=== PATIENT | male | born 1965 | race American Indian/Alaskan Native ===

== ENCOUNTER 2016-12-14 11:48 | Inpatient (IN) | payer OTHER ==
[2016-12-14] VITALS (10 sets, daily range): BP systolic 112–141; BP diastolic 56–80; PULSE 123–154; RESP 14–26; TEMP 98.5; O2SAT 91–97
[~2016-12-14] VITALS: Ht 190.5 cm; Wt 184.2 kg
--- NOTE | 2016-12-14 12:29 | PD ---
HPI Chief Complaint: Edema Time Seen by Provider: 12:22 Travel History International Travel<30 days: No Contact w/Intl Traveler<30days: No Traveled to known affect area: No History of Present Illness HPI Patient is a 51-year-old male presenting to him or to come for evaluation of right lower leg swelling and redness. Patient states she's been driving for the last 2 days from [place], since that time he's had increasing pain, redness and swelling in the right lower extremity. He reports his pain is a 7 out of 10 , the pain is increased with ambulation, improved with rest. Although the pain improves of redness and swelling has not resolved with rest. Patient states he gets short of breath with exertion and has had a fast heart rate, he stated that his primary told him his heart rate would not slow down until he lost weight. Patient reports a history of type 2 diabetes, hypertension and is on a baby aspirin daily. He denies any chest pain, headache, nausea, diaphoresis, abdominal pain at this time. [facility] Past Medical History Cardiovascular Problems: Yes (tachycardia) Diabetes: Yes Hypertension: Yes Medical other: Yes (morbid obesity) Past Surgical History Surgical History: No Previous Surgery Family History Family History: Negative Social History Alcohol Use: No Tobacco Use: No Substance Use: No Allergies-Medications (Allergen,Severity, Reaction): Coded Allergies: No Known Allergies (Unverified , 12/14/16) Review of Systems Except as stated in HPI: all other systems reviewed are Neg General / Constitutional: No: Fever, Chills HENT: No: Headaches, Lightheadedness Cardiovascular: Positive: Tachycardia, Dyspnea on exertion, No: Chest Pain or Discomfort Respiratory: No: Cough, Wheezing Gastrointestinal: No: Nausea, Vomiting, Diarrhea, Abdominal Pain Musculoskeletal: Positive: Myalgias, Edema, Pain Skin: Positive Change in Pigmentation Neurologic: No: Dizziness, Syncope, Focal Abnormalities Physical Exam Narrative GENERAL: Morbidly obese, well-developed, alert male. SKIN: Warm and dry. Chronic changes to bilateral lower extremities. Right lower extremity with 2+ pitting edema and erythema noted. Unable to palpate pedal pulses. HEAD: Atraumatic. Normocephalic. EYES: Pupils equal and round. No scleral icterus. No injection or drainage. ENT: No nasal bleeding or discharge. Mucous membranes pink and moist. NECK: Trachea midline. No JVD. CARDIOVASCULAR: Tachycardic. No murmur appreciated. RESPIRATORY: No accessory muscle use. Clear to auscultation. Breath sounds equal bilaterally. GASTROINTESTINAL: Abdomen obese, soft, non-tender, nondistended. Hepatic and splenic margins not palpable. Positive bowel sounds, no rebound, no guarding. Musculoskeletal: 2+ pitting edema to right lower extremity with erythema and tenderness on palpation. Unable to palpate pedal pulses. NEUROLOGICAL: Awake and alert. No obvious cranial nerve deficits. Motor grossly within normal limits. Normal speech. PSYCHIATRIC: Appropriate mood and affect; insight and judgment normal. Data Data Last Documented VS Vital Signs Date Time Temp Pulse Resp B/P Pulse Ox O2 Delivery O2 Flow Rate FiO2 12/14/16 11:50 98.5 153 14 130/80 91 Room Air Orders Us Leg Venous Doppler (12/14/16 ) Prothrombin Time / Inr (Pt) (12/14/16 12:20) Act Partial Throm Time (Ptt) (12/14/16 12:20) Complete Blood Count With Diff (12/14/16 12:20) Comprehensive Metabolic Panel (12/14/16 12:20) Electrocardiogram (12/14/16 ) Labs Laboratory Tests Test 12/14/16 13:30 White Blood Count 16.0 TH/MM3 Red Blood Count 4.23 MIL/MM3 Hemoglobin 11.0 GM/DL Hematocrit 34.7 % Mean Corpuscular Volume 82.1 FL Mean Corpuscular Hemoglobin 26.0 PG Mean Corpuscular Hemoglobin 31.7 % Concent Red Cell Distribution Width 16.9 % Platelet Count 236 TH/MM3 Mean Platelet Volume 8.0 FL Neutrophils (%) (Auto) 83.8 % Lymphocytes (%) (Auto) 6.4 % Monocytes (%) (Auto) 9.3 % Eosinophils (%) (Auto) 0.2 % Basophils (%) (Auto) 0.3 % Neutrophils # (Auto) 13.4 TH/MM3 Lymphocytes # (Auto) 1.0 TH/MM3 Monocytes # (Auto) 1.5 TH/MM3 Eosinophils # (Auto) 0.0 TH/MM3 Basophils # (Auto) 0.0 TH/MM3 CBC Comment DIFF FINAL Differential Comment Prothrombin Time 12.2 SEC Prothromb Time International 1.1 RATIO Ratio Activated Partial 30.4 SEC Thromboplast Time Sodium Level 142 MEQ/L Potassium Level 4.1 MEQ/L Chloride Level 106 MEQ/L Carbon Dioxide Level 31.8 MEQ/L Anion Gap 4 MEQ/L Blood Urea Nitrogen 15 MG/DL Creatinine 1.34 MG/DL Estimat Glomerular Filtration 56 ML/MIN Rate Random Glucose 91 MG/DL Calcium Level 9.2 MG/DL Total Bilirubin 1.0 MG/DL Aspartate Amino Transf 17 U/L (AST/SGOT) Alanine Aminotransferase 29 U/L (ALT/SGPT) Alkaline Phosphatase 67 U/L Total Protein 7.8 GM/DL Albumin 3.1 GM/DL MDM Medical Decision Making Medical Screen Exam Complete: Yes Emergency Medical Condition: Yes Interpretation(s) Last Impressions Lower Extremity Ultrasound 12/14/16 0000 Signed Impressions: Service Date/Time: Wednesday, December 14, 2016 12:18 - CONCLUSION: 1. Diffuse soft tissue swelling. 2. Unable to compress the mid and distal portions of the superficial femoral vein due to regional soft tissue swelling and discomfort. No echogenic clot and normal Doppler flow identified, however. No sonographic or Doppler findings of deep venous thrombosis. Tony Roach MD Vital Signs Date Time Temp Pulse Resp B/P Pulse Ox O2 Delivery O2 Flow Rate FiO2 12/14/16 11:50 98.5 153 14 130/80 91 Room Air Differential Diagnosis DVT versus pulmonary emboli versus cardiac arrhythmia versus electrolyte abnormality versus deconditioning versus other Narrative Course Patient's 51-year-old male presenting to emergency department for evaluation of right lower extremity pain and swelling that started after a long car drive from [place]. Patient also reports shortness of breath with exertion, patient is morbidly obese with the medical past medical history to include type 2 diabetes, hypertension. He is on a baby aspirin daily. Patient is tachycardic on exam, ultrasound of lower extremity ordered and currently in progress. Labs ordered and pending. CT angiogram may be of benefit due to tachycardia. Care of patient will be transferred to provider in a medical bed when bed is available. Liliya Gonzalez Dec 14, 2016 12:29
--- NOTE | 2016-12-14 13:01 | RADRPT ---
EXAM DATE/TIME: 12/14/2016 12:18 [facility] COMPARISON: No previous studies available for comparison. INDICATIONS : Right leg edema. MEDICAL HISTORY : Diabetes. Right leg edema. SURGICAL HISTORY : None. ENCOUNTER: Initial ACUITY: 3 days PAIN SCORE: 4/10 LOCATION: Right leg. TECHNIQUE: Venous ultrasound of the leg was performed from the inguinal ligament to the proximal calf. Real-juan carlos e, color Doppler and spectral tracing, compression and augmentation techniques were used. FINDINGS: Due to swelling and regional discomfort, unable to fully compress the mid and distal portions of the superficial femoral vein. However, no echogenic clot is seen in the lumen of the common femoral, fem oral, popliteal, and posterior tibial veins. There is a normal response of the venous system to prox imal and distal augmentation and respiration. CONCLUSION: 1. Diffuse soft tissue swelling. 2. Unable to compress the mid and distal portions of the superficial femoral vein due to regional sof t tissue swelling and discomfort. No echogenic clot and normal Doppler flow identified, however. No s onographic or Doppler findings of deep venous thrombosis. Tony Roach MD on December 14, 2016 at 12:55 Board Certified Radiologist. This report was verified electronically.
[2016-12-14 13:47] LABS: AUTOMATED NEUTROPHIL # 13.4 TH/MM3 (1.8-7.7); BASOPHIL % 0.3 % (0.0-2.0); EOSINOPHIL % 0.2 % (0.0-4.0); HEMATOCRIT 34.7 % (39.0-51.0); HEMO FLAGS DIFF FINAL; LYMPH % 6.4 % (9.0-44.0); MEAN CELL VOLUME 82.1 FL (80.0-100.0); MEAN CORPUSCULAR HGB CONC 31.7 % (32.0-36.0); MONO % 9.3 % (0.0-8.0); NEUT % 83.8 % (16.0-70.0); PLATELET COUNT 236 TH/MM3 (150-450); RED BLOOD COUNT 4.23 MIL/MM3 (4.50-5.90); RED CELL DISTRIBUTION WIDTH 16.9 % (11.6-17.2)
[2016-12-14 13:55] LABS: APTT (PATIENT) 30.4 SEC (24.3-30.1); INTERNATIONAL NORMALIZED RATIO 1.1 RATIO; PROTHROMBIN TIME - PATIENT 12.2 SEC (9.8-11.6)
[2016-12-14 14:03] LABS: ALT (GPT) 29 U/L (12-78); ANION GAP 4 MEQ/L (5-15); AST (GOT) 17 U/L (15-37); BICARBONATE 31.8 MEQ/L (21.0-32.0); BLOOD UREA NITROGEN 15 MG/DL (7-18); CHLORIDE 106 MEQ/L (98-107); GLOMERULAR FILTRATION RATE 56 ML/MIN (>89); POTASSIUM 4.1 MEQ/L (3.5-5.1); SODIUM (NA) 142 MEQ/L (136-145)
[2016-12-14 14:06] LABS: ALKALINE PHOSPHATASE 67 U/L (45-117)
[2016-12-14] MEDS ORDERED: DILTIAZEM HCL 25 MG/5 ML VIAL ONE (14:47)
[2016-12-14] MEDS ORDERED: ASPI81CH CHEW (14:52)
[2016-12-14] MEDS ORDERED: SODIUM CHLORIDE 0.9% FLUSH 5 ML FLUSH IVF PRN (15:00)
[2016-12-14] MEDS ORDERED: DILTIAZEM HCL 25 MG/5 ML VIAL IV PUSH ONE (15:00)
--- NOTE | 2016-12-14 15:05 | PD ---
Physical Exam Date Seen by Provider: Dec 14, 2016 Narrative Patient presents with chief complaint of redness and swelling of his right lower extremity. Data Data Last Documented VS Vital Signs Date Time Temp Pulse Resp B/P Pulse Ox O2 Delivery O2 Flow Rate FiO2 12/14/16 15:00 123 20 112/59 96 Nasal Cannula 3 12/14/16 11:50 98.5 Orders Us Leg Venous Doppler (12/14/16 ) Prothrombin Time / Inr (Pt) (12/14/16 12:20) Act Partial Throm Time (Ptt) (12/14/16 12:20) Complete Blood Count With Diff (12/14/16 12:20) Comprehensive Metabolic Panel (12/14/16 12:20) Electrocardiogram (12/14/16 ) Diltiazem Inj (Cardizem Inj) (12/14/16 14:47) Ecg Monitoring (12/14/16 14:48) Blood Pressure (12/14/16 14:48) Iv Access Insert/Monitor (12/14/16 14:48) Oximetry (12/14/16 14:48) Vital Signs (12/14/16 14:48) Diltiazem Inj (Cardizem Inj) (12/14/16 15:00) Sodium Chloride 0.9% Flush (Ns Flush) (12/14/16 15:00) Ct Pulmonary Angiogram (12/14/16 14:49) Lactic Acid Sepsis Protocol (12/14/16 15:11) Blood Culture (12/14/16 15:11) Piperacil-Tazo 4.5 Gm Premix (Zosyn 4.5 (12/14/16 15:11) Sodium Chlor 0.9% 1000 Ml Inj (Ns 1000 M (12/14/16 15:11) Sodium Chlor 0.9% 1000 Ml Inj (Ns 1000 M (12/14/16 15:11) Sodium Chlor 0.9% 1000 Ml Inj (Ns 1000 M (12/14/16 15:11) Sodium Chlor 0.9% 1000 Ml Inj (Ns 1000 M (12/14/16 15:11) Iohexol 350 Inj (Omnipaque 350 Inj) (12/14/16 15:45) Place In Observation (12/14/16 ) Code Status (12/14/16 16:18) Vital Signs (Adult) Q4H (12/14/16 16:18) Activity Oob With Assistance (12/14/16 16:18) Diet 1800 Ada Cons Carb (12/14/16 Dinner) Sodium Chloride 0.9% Flush (Ns Flush) (12/14/16 16:30) Sodium Chloride 0.9% Flush (Ns Flush) (12/14/16 21:00) Acetaminophen (Tylenol) (12/14/16 16:30) Ondansetron Inj (Zofran Inj) (12/14/16 16:30) Bisacodyl Supp (Dulcolax Supp) (12/14/16 16:30) Magnesium Hydroxide Liq (Milk Of Magnesi (12/14/16 16:30) Chest, Single Ap (12/14/16 16:18) Pt Request For Service (12/14/16 16:18) Enoxaparin Inj (Lovenox Inj) (12/14/16 16:30) Naloxone Inj (Narcan Inj) (12/14/16 16:30) Aspirin Chew (Aspirin Chew) (12/15/16 09:00) Cholecalciferol (Vitamin D3) (12/15/16 09:00) Levothyroxine (Synthroid) (12/15/16 09:00) Metformin (Glucophage) (12/14/16 21:00) Metformin (Glucophage) (12/15/16 12:00) Bedside Glucose FORTUNATO.AC&HS (12/14/16 16:29) ^ Blood Glucose Goal (Criteria (12/14/16 16:29) ^ Hypoglycemia 51 - 69 Mg/Dl (12/14/16 16:29) ^ Hypoglycemia 50 Mg/Dl Or < (12/14/16 16:29) Insulin Aspart Supplemtl Scale (Novolog (12/14/16 21:00) Labs Laboratory Tests Test 12/14/16 12/14/16 13:30 15:35 White Blood Count 16.0 TH/MM3 Red Blood Count 4.23 MIL/MM3 Hemoglobin 11.0 GM/DL Hematocrit 34.7 % Mean Corpuscular Volume 82.1 FL Mean Corpuscular Hemoglobin 26.0 PG Mean Corpuscular Hemoglobin 31.7 % Concent Red Cell Distribution Width 16.9 % Platelet Count 236 TH/MM3 Mean Platelet Volume 8.0 FL Neutrophils (%) (Auto) 83.8 % Lymphocytes (%) (Auto) 6.4 % Monocytes (%) (Auto) 9.3 % Eosinophils (%) (Auto) 0.2 % Basophils (%) (Auto) 0.3 % Neutrophils # (Auto) 13.4 TH/MM3 Lymphocytes # (Auto) 1.0 TH/MM3 Monocytes # (Auto) 1.5 TH/MM3 Eosinophils # (Auto) 0.0 TH/MM3 Basophils # (Auto) 0.0 TH/MM3 CBC Comment DIFF FINAL Differential Comment Prothrombin Time 12.2 SEC Prothromb Time International 1.1 RATIO Ratio Activated Partial 30.4 SEC Thromboplast Time Sodium Level 142 MEQ/L Potassium Level 4.1 MEQ/L Chloride Level 106 MEQ/L Carbon Dioxide Level 31.8 MEQ/L Anion Gap 4 MEQ/L Blood Urea Nitrogen 15 MG/DL Creatinine 1.34 MG/DL Estimat Glomerular Filtration 56 ML/MIN Rate Random Glucose 91 MG/DL Calcium Level 9.2 MG/DL Total Bilirubin 1.0 MG/DL Aspartate Amino Transf 17 U/L (AST/SGOT) Alanine Aminotransferase 29 U/L (ALT/SGPT) Alkaline Phosphatase 67 U/L Total Protein 7.8 GM/DL Albumin 3.1 GM/DL Lactic Acid Level 1.1 mmol/L MDM Supervised Visit with MARGARETH: Yes Interpretation(s) EKG shows a narrow complex tachycardia with a ventricular rate of 152. It is a very regular rhythm. I have no old EKGs for comparison. Differential Diagnosis Differential diagnosis of tachycardia includes but is not limited to PSVT, atrial fibrillation with a rapid ventricular response, sinus tachycardia (due to hypovolemia, anemia, thyrotoxicosis), PE Narrative Course Patient presented from triage with tachycardia. He also has a red, hot, swollen right lower extremity. He has bilateral lower extremity edema. He states that his shortness of breath is at baseline. He states that he's been homeless for a couple weeks and has been staying in a truck or in a motel. He states that he has been taking his medications. His rhythm has slowed some. It appears that he is in sinus tachycardia. CBC & BMP Diagram 12/14/16 13:30 Ultrasound is negative for DVT. Clinically, he has cellulitis. I have ordered Zosyn and IV fluids. He will need to be admitted. I will call the admitting doctor after I see his CT for PE. CT: 1. No pulmonary embolus is identified. 2. 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 3. There are some small subcarinal and pretracheal nodes. There is a node in the pretracheal goldie chain measuring 2.5 x 1.[address] scan in 6 months to ensure stability would be warranted. Critical Care Narrative Aggregate critical care time was 45 minutes. Time to perform other separately billable procedures was not included in the critical care time. My time did not include minutes spent treating any other patients simultaneously or on activities that did not directly contribute to the patient's treatment. The services I provided to this patient were to treat and/or prevent clinically significant deterioration due to cardiac dysrhythmia, PE I provided critical care services requiring my management, as noted below: Chart data review, documentation time, medication orders and management, vital sign assessments/reviewing monitor data, ordering and reviewing lab tests, ordering and interpreting/reviewing x-rays and diagnostic studies, care of the patient and discussion of the patient with the admitting physicians Sepsis Criteria SIRS Criteria (2 or more): Heart rate over 90, WBC > 62045, < 4000 or > 10% bands Sepsis Criteria (SIRS+source): Infect source susp/known Diagnosis Primary Impression: Sinus tachycardia Additional Impression: Cellulitis of right leg Admitting Information Admitting Physician Requests: Admit Condition: Stable Verenice Del Rio MD Dec 14, 2016 15:05
[2016-12-14] MEDS ORDERED: PIPERACIL-TAZO 4.5 GM PREMIX 100 ML IV STA (15:11)
[2016-12-14] MEDS ORDERED: SODIUM CHLOR 0.9% 1000 ML INJ 900 ML IV ONE (15:11)
[2016-12-14] MEDS ORDERED: SODIUM CHLOR 0.9% 1000 ML INJ 1,000 ML IV ONE ×3 (15:11)
[2016-12-14] MEDS ORDERED: LEVO75TA3 PO (15:44)
[2016-12-14] MEDS ORDERED: VITA100018 PO (15:44)
[2016-12-14] MEDS ORDERED: FURO1TAB60 PO ×2 (15:44)
[2016-12-14] MEDS ORDERED: ALDA50TA2 PO (15:44)
[2016-12-14] MEDS ORDERED: K-TA10TA PO (15:44)
[2016-12-14] MEDS ORDERED: GLIM4TAB PO (15:44)
[2016-12-14] MEDS ORDERED: ENAL20TA81 PO (15:44)
[2016-12-14] MEDS ORDERED: METF500 PO ×2 (15:44)
[2016-12-14] MEDS ORDERED: IOHEXOL 350 MG/ML 10 ML VIAL (for RAD DIAG) IV ONE (15:45)
[2016-12-14] MEDS ORDERED: NOVO7030P2 SQ (15:45)
--- NOTE | 2016-12-14 16:05 | RADRPT ---
EXAM DATE/TIME: 12/14/2016 15:43 [facility] COMPARISON: No previous studies available for comparison. INDICATIONS : Possible DVT. Chest pain. Eval for PE. IV CONTRAST: 60 cc Omnipaque 350 (iohexol) IV RADIATION DOSE: 25.75 CTDIvol (mGy) MEDICAL HISTORY : Cardiovascular disease. Hypertension. Diabetes mellitus type 2. SURGICAL HISTORY : None. ENCOUNTER: Initial ACUITY: 2 days PAIN SCALE: 5/10 LOCATION: chest TECHNIQUE: Volumetric scanning of the chest was performed using a pulmonary embolism protocol MIP images were re constructed. Using automated exposure control and adjustment of the mA and/or kV according to patien t size, radiation dose was kept as low as reasonably achievable to obtain optimal diagnostic quality images. FINDINGS: PULMONARY ARTERIES: No filling defects are seen in the pulmonary arteries through the segmental level. LUNGS: No pneumothorax is identified. There is patchy, groundglass change seen within both lower lobes. This is nonspecific in appearance. This could suggest an extrinsic allergic alveolitis. PLEURAE: There is no pleural thickening or pleural effusion. MEDIASTINUM: There is good visualization of the great vessels of the middle mediastinum. There are some small node s in the pretracheal goldie chain and the subcarinal goldie chain. The largest node identified is in th e subcarinal nodes measures approximately 2.5 x 1.3 CM.. These are nonspecific in appearance. Followu p CT in 6 months to ensure they do not enlarge would be warranted. There is mild atherosclerotic plaq uing in the coronary arteries. MUSCULOSKELETAL: Within normal limits for patient age. MISCELLANEOUS: The visualized upper abdominal organs demonstrate no acute abnormality. CONCLUSION: 1. No pulmonary embolus is identified. 2. 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 3. There are some small subcarinal and pretracheal nodes. There is a node in the pretracheal goldie ch ain measuring 2.5 x 1.[address] scan in 6 months to ensure stability would be warranted. Marin Appiah MD on December 14, 2016 at 15:58 Board Certified Radiologist. This report was verified electronically.
[2016-12-14] MEDS ORDERED: ONDANSETRON HCL 4 MG/2 ML VIAL IVP PRN (16:30)
[2016-12-14] MEDS ORDERED: BISACODYL 10 MG SUPP PR PRN (16:30)
[2016-12-14] MEDS ORDERED: ACETAMINOPHEN 325 MG TAB PO PRN (16:30)
[2016-12-14] MEDS ORDERED: SODIUM CHLORIDE 0.9% FLUSH 5 ML FLUSH FLUSH PRN (16:30)
[2016-12-14] MEDS ORDERED: NALOXONE HCL 0.4 MG/ML AMP IV PRN (16:30)
[2016-12-14] MEDS ORDERED: MAGNESIUM HYDROXIDE SUSP 30 ML CUP PO PRN (16:30)
--- NOTE | 2016-12-14 16:31 | HHI.HP ---
HPI Service [facility] Hospitalists Primary Care Physician Rakesh Rey MD (Vipin) Admission Diagnosis Cellulitis Chief Complaint: RLE cellulitis Travel History International Travel<30 Days: No Contact w/Intl Traveler <30 Da: No Traveled to Known Affected Are: No History of Present Illness Mr. Matthews is a pleasant 51 y/o WM with poorly controlled diabetes, HTN, hx of atrial flutter, chronic LE edema, diastolic dysfunction, hypothyroidism and morbid obesity. Pt presented to the ED at [facility] on 12/14/16 with complaints of worsening pain, erythema, swelling and subjective fevers x 2-3 days. He states that he has chronic LE edema and takes Lasix 80mg in AM and 40mg in PM and Aldactone chronically. More recently he has noted increased redness in the RLE and this has worsened over the last 2-3 days. He has been having subjective fevers and chills. He has had increased pain in the RLE and difficulty with ambulating. Pt was given a dose of IV Zosyn in the ER. He has also been given 4L of NS. He denies any current chest pain or SOB. Pt was noted to be tachycardic at the time of admission and his EKG was interpreted as atrial flutter with RVR. He has an outpt EKG from 2016 which also indicated A. flutter with RVR. Pt states that he has had issues with periodically elevated HR since last year. He was given a Cardizem bolus in the ED. Currently his HR is still in the 150's but appears to be regular on telemetry. He is not on any BB as an outpt. Pt does take Enalapril and Norvasc. Pt is also has IDDM with his last Hgb A1C being 9.7%. He states that he is compliant with all his medications. Pt is morbidly obese and smokes 3/4 ppd x 30 years. Review of Systems Constitutional: DENIES: Fever, Chills Eyes: DENIES: Vision loss Ears, nose, mouth, throat: DENIES: Hearing loss Respiratory: DENIES: Shortness of breath Cardiovascular: COMPLAINS OF: Lower Extremity Edema, DENIES: Chest pain, Palpitations Genitourinary: DENIES: Dysuria Musculoskeletal: COMPLAINS OF: Joint pain Integumentary: COMPLAINS OF: Abnormal pigmentation, Rash Neurologic: DENIES: Headache Past Family Social History Past Medical History Atrial flutter/tachycardia Poorly controlled diabetes mellitus, Hgb A1C 9.7% HTN Hyperlipidemia Hypothyroidism Tobacco use Morbid obesity Diastolic dysfunction 2D echo (11/19/14) - Moderate concentric LV hypertrophy - Estimated EF 55% - Diastolic dysfunction Past Surgical History No previous surgeries Reported Medications Novolin 70-30 Inj (Insulin Human Isoph/Insulin Regular) 1,000 Unit/10 Ml Vial 85 Units SQ BID Glimepiride 4 Mg Tab 8 Mg PO DAILY Take with breakfast or first main meal Levothyroxine (Levothyroxine Sodium) 75 Mcg Tab 75 Mcg PO DAILY Vitamin D3 (Cholecalciferol) 1,000 Unit Tab 1,000 Units PO DAILY K-Tab (Potassium Chloride) 10 Meq Tab 10 Meq PO DAILY Lasix (Furosemide) 40 Mg Tab 40 Mg PO DAILY IN THE PM Lasix (Furosemide) 40 Mg Tab 80 Mg PO DAILY IN THE AM Glucophage (Metformin HCl) 500 Mg Tab 500 Mg PO DAILY AT 12NOON With a meal Glucophage (Metformin HCl) 500 Mg Tab 1,000 Mg PO BID With meals Vasotec (Enalapril Maleate) 20 Mg Tab 20 Mg PO BID Aldactone (Spironolactone) 50 Mg Tab 50 Mg PO DAILY Aspirin 81 Mg Chew 81 Mg CHEW DAILY Allergies: Coded Allergies: No Known Allergies (Unverified , 12/14/16) Family History Noncontributory Social History (+)Tobacco use, 3/4ppd x 30+ years Rare alcohol use Occasional marijuana use, 2-3 times per week Physical Exam Vital Signs Vital Signs Date Time Temp Pulse Resp B/P Pulse Ox O2 Delivery O2 Flow Rate FiO2 12/14/16 15:00 123 20 112/59 96 Nasal Cannula 3 12/14/16 14:40 152 24 95 Nasal Cannula 3 12/14/16 14:40 152 24 112/56 95 Nasal Cannula 3 12/14/16 11:50 98.5 153 14 130/80 91 Room Air Physical Exam GENERAL: This is a well-nourished, well-developed patient, in no apparent distress. HEENT: Atraumatic. Normocephalic. No temporal or scalp tenderness. No scleral icterus. Airway patent. NECK: Trachea midline, supple, nontender. CARDIO: Regular. RESP: CTA bilaterally. No wheezes, rales, or rhonchi. ABD: +BS, soft, non-tender, nondistended. EXT: Bilateral 2+ pitting edema to the LE. RLE with erythema and tenderness on palpation. NEURO: Awake and alert. Motor and sensory grossly within normal limits. Normal speech. Laboratory Laboratory Tests Test 12/14/16 12/14/16 13:30 15:35 White Blood Count 16.0 Red Blood Count 4.23 Hemoglobin 11.0 Hematocrit 34.7 Mean Corpuscular Volume 82.1 Mean Corpuscular Hemoglobin 26.0 Mean Corpuscular Hemoglobin 31.7 Concent Red Cell Distribution Width 16.9 Platelet Count 236 Mean Platelet Volume 8.0 Neutrophils (%) (Auto) 83.8 Lymphocytes (%) (Auto) 6.4 Monocytes (%) (Auto) 9.3 Eosinophils (%) (Auto) 0.2 Basophils (%) (Auto) 0.3 Neutrophils # (Auto) 13.4 Lymphocytes # (Auto) 1.0 Monocytes # (Auto) 1.5 Eosinophils # (Auto) 0.0 Basophils # (Auto) 0.0 CBC Comment DIFF FINAL Differential Comment Prothrombin Time 12.2 Prothromb Time International 1.1 Ratio Activated Partial 30.4 Thromboplast Time Sodium Level 142 Potassium Level 4.1 Chloride Level 106 Carbon Dioxide Level 31.8 Anion Gap 4 Blood Urea Nitrogen 15 Creatinine 1.34 Estimat Glomerular Filtration 56 Rate Random Glucose 91 Calcium Level 9.2 Total Bilirubin 1.0 Aspartate Amino Transf 17 (AST/SGOT) Alanine Aminotransferase 29 (ALT/SGPT) Alkaline Phosphatase 67 Total Protein 7.8 Albumin 3.1 Lactic Acid Level 1.1 Date/Time Procedure Status Source Growth 12/14/16 15:35 Aerobic Blood Culture Received Blood Peripheral Pending 12/14/16 15:35 Anaerobic Blood Culture Received Blood Peripheral Pending Result Diagram: 12/14/16 1330 12/14/[address] Angiography 12/14/16 1449 Signed Impressions: Service Date/Time: Wednesday, December 14, 2016 15:43 - CONCLUSION: 1. No pulmonary embolus is identified. 2. 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 3. There are some small subcarinal and pretracheal nodes. There is a node in the pretracheal goldie chain measuring 2.5 x 1.[address] scan in 6 months to ensure stability would be warranted. Marin Appiah MD Lower Extremity Ultrasound 12/14/16 0000 Signed Impressions: Service Date/Time: Wednesday, December 14, 2016 12:18 - CONCLUSION: 1. Diffuse soft tissue swelling. 2. Unable to compress the mid and distal portions of the superficial femoral vein due to regional soft tissue swelling and discomfort. No echogenic clot and normal Doppler flow identified, however. No sonographic or Doppler findings of deep venous thrombosis. Tony Roach MD Septic Shock Reassessment Heart: Other Lungs: Clear Skin: Warm Assessment and Plan Problem List: (1) Cellulitis of right leg Status: Acute Plan: - Pt with several days of worsening RLE edema, erythema, pain and subjective fevers/chills. - Pt admitted under SIRS sepsis criteria with tachycardia, leukocytosis (16,000) - Pt was given a dose of IV Zosyn in the ER and 4L of IVF - Pt has reportedly been homeless for a couple of weeks and has been staying in a car or staying at [facility] (12/14) --> Diffuse soft tissue swelling. Unable to compress the mid and distal portions of the superficial femoral vein due to regional soft tissue swelling and discomfort. No echogenic clot and normal Doppler flow identified, however. No sonographic or Doppler findings of deep venous thrombosis. - CTA (12/14) --> No pulmonary embolus is identified. Patchy areas of ground- glass infiltrate throughout predominantly the lower lobes most suggestive of an extrinsic allergic alveolitis. There are some small subcarinal and pretracheal nodes. There is a node in the pretracheal goldie chain measuring 2.5 x 1.[address] scan in 6 months to ensure stability would be warranted. - Cont. IV Zosyn - Pt notably tachycardic, may be physiological related to infection and pain, but pt with noted hx of atrial flutter per outpt EKG and EKG at admission also appears to be possible atrial flutter with RVR. Telemetry currently appears to be sinus tachycardia. - Pt has been given a bolus of IV Cardizem and pt to be started on a Cardizem gtt. - Consult Cardiology - He has significant LE edema and was given 4L of NS in the ER and has a hx of diastolic dysfunction. - We will given Lasix 40mg IV BID, and potassium. Monitor labs closely - ASA - Lovenox - Supportive care (2) Tachyarrhythmia Status: Acute Plan: - See above. (3) Diabetes Status: Chronic Plan: - Poorly controlled - Hgb A1C 9.7% in 11/2016 - Metformin 1000mg BID and 500mg at noon - NovoLog SSI - Hold Amaryl - Accu checks (4) HTN (hypertension) Status: Chronic Plan: - Pt normally takes Enalapril 20mg po BID and Norvasc 10mg po daily. - Hold home BP meds - Pt being started on Cardizem gtt and Lasix IV - Monitor BP closely (5) Diastolic dysfunction Status: Chronic Plan: - Last 2D echo in 2014 noted diastolic dysfunction - See above. (6) Chronic edema Status: Chronic Plan: - See above. (7) Hypothyroidism Status: Chronic Plan: - Cont. home meds (8) Tobacco abuse Status: Chronic Plan: - Discussed tobacco cessation - Offered the pt a Nicotine patch which he declined for now. (9) Morbid obesity Status: Acute Assessment and Plan Patient examined. Assessment and plan formulated with Michelle Martinez PA-C. I agree with the above. Problem Qualifiers (1) Diabetes: Michelle Martinez Dec 14, 2016 16:31 Juan Davidson DO Dec 15, 2016 11:53
[2016-12-14] MEDS ORDERED: DEXTROSE 50% IN WATER 50 ML VIAL(D50) IV PUSH PRN (16:45)
[2016-12-14] MEDS ORDERED: GLUCAGON 1 MG/ML VIAL OTHER PRN (16:45)
[2016-12-14] MEDS ORDERED: ENOXAPARIN SODIUM 30 MG/0.3 ML SYRINGE SQ SCH (17:00)
[2016-12-14] MEDS ORDERED: AMLO10 PO (17:08)
[2016-12-14] MEDS ORDERED: POTASSIUM CHLORIDE 10 MEQ CAP PO ONE (17:15)
[2016-12-14] MEDS ORDERED: ACETAMINOPHEN/HYDROcodone 325 MG/7.5 MG TAB PO ONE (17:15)
--- NOTE | 2016-12-14 17:21 | RADRPT ---
EXAM DATE/TIME: 12/14/2016 16:58 [facility] COMPARISON: CT PULMONARY ANGIOGRAM, December 14, 2016, 15:43. INDICATIONS : Cough MEDICAL HISTORY : Diabetes mellitus type II. SURGICAL HISTORY : None. ENCOUNTER: Initial ACUITY: 1 day PAIN SCORE: 0/10 LOCATION: Bilateral chest FINDINGS: A single view of the chest demonstrates the lungs to be symmetrically aerated without evidence of a m ass or definite infiltrate. The heart size is at the upper limits of normal. There is hazy opacity in both lung bases. There are multiple overlying cardiac leads. Osseous structures are intact. CONCLUSION: Hazy opacity in both lung bases. Azeem Cuba MD on December 14, 2016 at 17:18 Board Certified Radiologist. This report was verified electronically.
[2016-12-14] MEDS: FUROSEMIDE 40 MG/4 ML VIAL IV PUSH SCH (17:59)
[2016-12-14] MEDS: DILTIAZEM INJ 125 MG in SODIUM CHLORIDE 0.9% INJ 100 ML IV SCH ×3 (19:24→21:11)
[2016-12-14] MEDS: INSULIN ASPART SUPPLEMENTAL SCALE SQ SCH (21:09)
[2016-12-14] MEDS ORDERED: METOPROLOL TARTRATE 100 MG TAB PO SCH (22:00)
[2016-12-14] MEDS: SODIUM CHLORIDE 0.9% FLUSH 5 ML FLUSH FLUSH SCH (22:25)
[2016-12-14] MEDS: metFORMIN HCL 500 MG TAB PO SCH (22:25)
[2016-12-14] MEDS: ENOXAPARIN SODIUM 100 MG/ML SYRINGE SQ SCH (22:26)
[2016-12-15] VITALS (10 sets, daily range): BP systolic 18–141; BP diastolic 58–81; PULSE 105–145; RESP 19–27; TEMP 98.1–98.4; O2SAT 90–95
[2016-12-15] MEDS: LEVOTHYROXINE SODIUM 75 MCG TAB PO SCH (06:46)
[2016-12-15] MEDS: INSULIN ASPART SUPPLEMENTAL SCALE SQ SCH ×4 (07:28→21:00)
--- NOTE | 2016-12-15 07:48 | MB ---
cc: SHELIA POLLARD MD DATE OF CONSULTATION 12/15/2016 REASON FOR CONSULTATION This is a 51-year-old gentleman who presents to the emergency department with right lower leg swelling and tenderness noted that this began approximately three days ago but yesterday became quite erythematous and tender to the touch. He noted that it was also very warm to the touch. He has been driving from the last two days from [place] with increasing discomfort. No fever or chills have been present, although he thinks he may have had a fever last night, but did not take it. He has had no prior history of leg edema or swelling. In the emergency department, he was seen. A CTA was performed which was unremarkable. He had a lowers extremity ultrasound that showed no evidence for DVT. We have been asked to see him in that he has a rapid heart rate and examination of his EKG a rhythm strip shows atrial flutter with a heart rate of 145-150. PAST MEDICAL HISTORY His past medical history is significant for: 1. Diabetes 2. He has noted on two separate occasions over the past year he was told that his heart rate was fast. He did see Cardiology approximately one year ago, but was told there were no significant problems present. Several months ago, he was also suggested into the emergency department because a rapid heart rate, but declined and went home and has not sought follow up. He otherwise has no history of chest Pain and denies any shortness of breath, lightheadedness, dizziness or palpitations. 3. He has had borderline hypertension. SOCIAL HISTORY The patient works in [employer]. He does not smoke, drink or use recreational drugs. MEDICATIONS AT HOME Has included: 1. Metformin 500 mg three times daily 2. Enalapril 20 mg twice a day 3. Aldactone 50 mg daily 4. Aspirin 81 mg daily 5. Furosemide 80 mg of the morning of 40 in the evening. 6. Potassium 10 mEq daily 7. Levothyroxine 75 mcg daily 8. Glimepiride 8 mg daily 9. Novolin 70/30 with 85 units subcu twice a day PHYSICAL EXAM On physical exam, he is awake and alert. VITAL SIGNS: Heart rate is 145. Blood pressure is 125/80. NECK: There is no neck vein distension. LUNGS: His lungs are essentially clear. CARDIOVASCULAR: Exam reveals a regular rate and rhythm. There is no significant murmur present. No gallop is noted. ABDOMEN: Soft without tenderness. EXTREMITIES: Reveal no edema. ASSESSMENT/PLAN The patient has atrial flutter with rapid response. It is unclear how long this has been present and we will review his outpatient records at [facility] to evaluate his episode two months ago. In the meantime, we will try to slow his rate medically with Metoprolol 100 mg daily and I have increased his Lovenox to 100 mg twice daily for thromboembolic protection. MD JEFFREY Talbot/EDVAN /6:59 AM /7:39 AM
[2016-12-15 07:49] LABS: AUTOMATED NEUTROPHIL # 13.3 TH/MM3 (1.8-7.7); BASOPHIL % 0.2 % (0.0-2.0); EOSINOPHIL % 0.1 % (0.0-4.0); HEMATOCRIT 32.2 % (39.0-51.0); HEMO FLAGS DIFF FINAL; LYMPH % 6.6 % (9.0-44.0); MEAN CORPUSCULAR HEMOGLOBIN 25.7 PG (27.0-34.0); MONO % 7.3 % (0.0-8.0); NEUT % 85.8 % (16.0-70.0); PLATELET COUNT 226 TH/MM3 (150-450); RED BLOOD COUNT 3.87 MIL/MM3 (4.50-5.90); RED CELL DISTRIBUTION WIDTH 16.8 % (11.6-17.2); WHITE BLOOD COUNT 15.6 TH/MM3 (4.0-11.0)
[2016-12-15 08:10] LABS: POTASSIUM 4.2 MEQ/L (3.5-5.1)
[2016-12-15] MEDS ORDERED: POTASSIUM CHLORIDE 20 MEQ CONTROLLED RELEASE TAB PO SCH (09:00)
[2016-12-15] MEDS ORDERED: METOPROLOL TARTRATE 100 MG TAB PO SCH (09:00)
[2016-12-15] MEDS: SODIUM CHLORIDE 0.9% FLUSH 5 ML FLUSH FLUSH SCH ×2 (09:01→21:00)
[2016-12-15] MEDS: ASPIRIN 81 MG CHEW TAB CHEW SCH (09:01)
[2016-12-15] MEDS: ENOXAPARIN SODIUM 100 MG/ML SYRINGE SQ SCH (09:01)
[2016-12-15] MEDS: metFORMIN HCL 500 MG TAB PO SCH ×3 (09:47→22:07)
[2016-12-15] MEDS: CHOLECALCIFEROL (VIT D3) 1000 UNIT TAB PO SCH (09:47)
--- NOTE | 2016-12-15 10:26 | EKG ---
Date Performed: 12/14/2016 Time Performed: 14:43:55 PTAGE: 51 years EKG: ATRIAL FLUTTER WITH 2:[address] & T-WAVE ABNORMALITY ABNORMAL ECG NO PREVIOUS TRACING DOCTOR: Sebastien Rincon Interpretating Date/Time 12/15/2016 10:25:46
--- NOTE | 2016-12-15 12:16 | HHI.PR ---
Subjective Remarks No new complaints. Objective Vitals Vital Signs Date Time Temp Pulse Resp B/P Pulse Ox O2 Delivery O2 Flow Rate FiO2 12/15/16 09:00 145 27 139/64 90 Nasal Cannula 3 12/15/16 08:35 98.1 144 24 132/65 94 Nasal Cannula 3 12/15/16 08:35 98.1 144 24 132/65 94 Nasal Cannula 3 12/15/16 08:35 Nasal Cannula 3 12/15/16 05:00 131 22 135/68 93 Nasal Cannula 2 12/15/16 01:00 132 25 125/63 94 Nasal Cannula 2 12/14/16 23:00 148 26 118/58 94 Nasal Cannula 2 12/14/16 20:50 21 12/14/16 20:38 154 22 115/57 97 Nasal Cannula 2 12/14/16 20:00 152 22 134/67 Nasal Cannula 2 12/14/16 19:15 150 21 141/70 96 Nasal Cannula 2 12/14/16 18:00 143 18 141/70 96 Nasal Cannula 3 12/14/16 17:00 135 18 137/62 97 Nasal Cannula 3 12/14/16 16:00 142 18 123/56 97 Nasal Cannula 3 12/14/16 15:00 123 20 112/59 96 Nasal Cannula 3 12/14/16 14:40 152 24 95 Nasal Cannula 3 12/14/16 14:40 152 24 112/56 95 Nasal Cannula 3 Result Diagram: 12/15/16 0713 12/15/[address] Angiography 12/14/16 1449 Signed Impressions: Service Date/Time: Wednesday, December 14, 2016 15:43 - CONCLUSION: 1. No pulmonary embolus is identified. 2. 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 3. There are some small subcarinal and pretracheal nodes. There is a node in the pretracheal goldie chain measuring 2.5 x 1.[address] scan in 6 months to ensure stability would be warranted. Marin Appiah MD Lower Extremity Ultrasound 12/14/16 0000 Signed Impressions: Service Date/Time: Wednesday, December 14, 2016 12:18 - CONCLUSION: 1. Diffuse soft tissue swelling. 2. Unable to compress the mid and distal portions of the superficial femoral vein due to regional soft tissue swelling and discomfort. No echogenic clot and normal Doppler flow identified, however. No sonographic or Doppler findings of deep venous thrombosis. Tony Roach MD Objective Remarks GENERAL: This is a well-nourished, well-developed patient, in no apparent distress. CARDIOVASCULAR: Regular rate and rhythm without murmurs, gallops, or rubs. RESPIRATORY: Clear to auscultation. Breath sounds equal bilaterally. No wheezes , rales, or rhonchi. GASTROINTESTINAL: Abdomen soft, non-tender, nondistended. Normal active bowel sounds MUSCULOSKELETAL: Extremities without clubbing, cyanosis, or edema. NEURO: Alert & Oriented x4 to person, place, time, situation. Moves all ext x4 A/P Problem List: (1) Cellulitis of right leg Status: Acute Plan: - Pt with several days of worsening RLE edema, erythema, pain and subjective fevers/chills. - Pt admitted under SIRS sepsis criteria with tachycardia, leukocytosis (16,000) - Pt was given a dose of IV Zosyn in the ER and 4L of IVF - Pt has reportedly been homeless for a couple of weeks and has been staying in a car or staying at [facility] (12/14) --> Diffuse soft tissue swelling. Unable to compress the mid and distal portions of the superficial femoral vein due to regional soft tissue swelling and discomfort. No echogenic clot and normal Doppler flow identified, however. No sonographic or Doppler findings of deep venous thrombosis. - CTA (12/14) --> No pulmonary embolus is identified. Patchy areas of ground- glass infiltrate throughout predominantly the lower lobes most suggestive of an extrinsic allergic alveolitis. There are some small subcarinal and pretracheal nodes. There is a node in the pretracheal goldie chain measuring 2.5 x 1.[address] scan in 6 months to ensure stability would be warranted. - Cont. IV Zosyn - IV lasix, KCL - lovenox --> change to eliquis - significant LE edema - resume lasix 40mg IV BID, observe creatinine (2) Atrial flutter with rapid ventricular response Status: Acute Plan: - comgmt with Cardiology - Case d/w Dr. Goff (12/15/16) - IV Cardizem drip - increase metoprolol to 100mg TID - if NO improvement by 12/16, then will consider amiodarone (3) Alveolitis, allergic (extrinsic) Status: Acute Plan: - CTA chest (12/13/16) 1. No pulmonary embolus is identified. 2. 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 3. There are some small subcarinal and pretracheal nodes. There is a node in the pretracheal goldie chain measuring 2.5 x 1.[address] scan in 6 months to ensure stability would be warranted - requiring 3L NC - Pt works at [employer] - consult Pulmonary Medicine (4) Diabetes Status: Chronic Plan: - currently stable - Poorly controlled - Hgb A1C 9.7% in 11/2016 - Metformin 1000mg BID and 500mg at noon - NovoLog SSI - Hold Amaryl - Accu checks (5) HTN (hypertension) Status: Chronic Plan: - Pt normally takes Enalapril 20mg po BID and Norvasc 10mg po daily. - Hold home BP meds - Pt being started on Cardizem gtt and Lasix IV - Monitor BP closely (6) Diastolic dysfunction Status: Chronic Plan: - Last 2D echo in 2014 noted diastolic dysfunction - See above. (7) Chronic edema Status: Chronic Plan: - See above. (8) Hypothyroidism Status: Chronic Plan: - Cont. home meds (9) Tobacco abuse Status: Chronic Plan: - Discussed tobacco cessation - Offered the pt a Nicotine patch which he declined for now. (10) Morbid obesity Status: Acute Plan: - after discharge, pt will need to work on weight loss - recommend f/u with CP analysis consultant after discharge (11) TRE (obstructive sleep apnea) Status: Acute Plan: - strongly suspect that pt has undiagnosed TRE based on history of wake time somnolence and body habitus - pt will need outpt sleep study for TRE after discharge Problem Qualifiers (1) Diabetes: Qualified Code: E11.8 - Type 2 diabetes mellitus with complication, with long- term current use of insulin (2) Morbid obesity: Qualified Code: E66.01 - Morbid obesity due to excess calories Juan Davidson DO Dec 15, 2016 12:16
[2016-12-15] MEDS ORDERED: AMIODARONE INJ 900 MG in D5W 500 ML (EXCEL BAG) 482 ML IV SCH (13:15)
[2016-12-15] MEDS: AMIODARONE INJ 450 MG in DEXTROSE 5% IN WATE(EXCEL) INJ 241 ML IV SCH ×4 (14:40→23:19)
[2016-12-15] MEDS: METOPROLOL TARTRATE 100 MG TAB PO SCH ×2 (14:40→22:11)
--- NOTE | 2016-12-15 16:49 | EC ---
Study Study Date:12/15/2016 STUDY CONCLUSIONS SUMMARY - Procedure narrative: Image quality was poor. The study was technically limited due to body habitus. - Left ventricle: The cavity size was mildly dilated. Systolic function was severely reduced. The estimated ejection fraction was in the range of 30% to 35%. Diffuse hypokinesis. Impressions: Patient noted to be in atrial fibrillation/flutter with an elevated heart rate during the exam If LV function is below 40, please consider prescribing an ACEI or ARB or document rationale for non-use. PROCEDURE DATA STUDY STATUS: Elective. Procedure: Transthoracic echocardiography. Image quality was poor. The study was technically limited due to body habitus. Scanning was performed from the parasternal and apical acoustic windows. Study completion: The patient tolerated the procedure well. Transthoracic echocardiography. M-mode, complete 2D, complete spectral Doppler, and color Doppler. Patient status: Inpatient. CARDIAC ANATOMY LEFT VENTRICLE: The cavity size was mildly dilated. Systolic function was severely reduced. The estimated ejection fraction was in the range of 30% to 35%. Diffuse hypokinesis. Images were inadequate for LV wall motion assessment. AORTIC VALVE: The valve appears to be grossly normal. Doppler: There was no stenosis. No significant regurgitation. MITRAL VALVE: The valve appears to be grossly normal. Doppler: There was no evidence for stenosis. Trace regurgitation. Peak gradient: 6mm Hg (D). LEFT ATRIUM: The atrium was normal in size. PULMONIC VALVE: Not well visualized. Doppler: There was no evidence for stenosis. No significant regurgitation. TRICUSPID VALVE: The valve appears to be grossly normal. Doppler: There was no evidence for stenosis. Trace to mild regurgitation. BASIC MEASUREMENTS ADULT Normal Left ventricle LV internal dimension, ED, chordal level, *63 mm 43-52 PLAX LV internal dimension, ES, chordal level, *55.8 mm 23-38 PLAX Fractional shortening, chordal level, PLAX *11 % >29 LV posterior wall thickness, ED 10.1 mm IVS/LVPW ratio, ED 1.17 <1.3 Ventricular septum Septal thickness, ED 11.8 mm Left atrium Anterior-posterior dimension 35 mm Right ventricle RV internal dimension, ED, PLAX 23 mm 19-38 DOPPLER MEASUREMENTS ADULT Normal Main pulmonary artery Pressure, S 30 mm Hg =30 Mitral valve Peak E-wave velocity 119 cm/s Peak gradient, D 6 mm Hg Tricuspid valve Regurgitant peak velocity 221 cm/s Peak RV-RA gradient, S 20 mm Hg Maximal regurgitant velocity 221 cm/s Systemic veins Estimated CVP 10 mm Hg Right ventricle RV pressure, S *30 mm Hg <30 LEGEND: Mean values are shown as u=mean value. Asterisk (*) hilario values outside specified normal range. Prepared and signed by Arnulfo Cobian [id number]
[2016-12-15] MEDS: FUROSEMIDE 40 MG/4 ML VIAL IV PUSH SCH (17:58)
[2016-12-15 19:00] LABS: BLOOD GAS BASE EXCESS 1.6 mmol/L (-2-2); BLOOD GAS CARBOXYHEMOGLOBIN 2.6 % (0-4); BLOOD GAS HCO3 27 mmol/L (22-26); BLOOD GAS METHEMOGLOBIN 1.8 % (0-2); BLOOD GAS O2 HGB SATURATION 88 % (90-100); BLOOD GAS OXYGEN CONTENT 13.4 Vol % (12.0-20.0); BLOOD GAS PCO2 51 mmHg (38-42); BLOOD GAS PO2 68 mmHG (61-120); BLOOD GAS TOTAL HGB 10.7 G/DL (12.0-16.0); TEMP CORR TO 98.6
[2016-12-15 19:01] LABS: CRITICAL VALUE YES; DRAW SITE LT RADIAL; LITER FLOW 4 L/M; NUMBER OF ARTERIAL PUNCTURES 1; OXYGEN DEVICE NASAL CANNULA; ULNAR PULSE PRESENT
[2016-12-15 19:02] LABS: STAT NO
[2016-12-15] MEDS: APIXABAN 5 MG TABLET PO SCH (22:06)
[2016-12-15] MEDS: ACETAMINOPHEN/HYDROcodone 325 MG/7.5 MG TAB PO PRN (22:13)
[2016-12-16] VITALS (24 sets, daily range): BP systolic 98–156; BP diastolic 62–84; PULSE 88–138; RESP 18–24; TEMP 99.2; O2SAT 5–97
--- NOTE | 2016-12-16 03:58 | RADRPT ---
EXAM DATE/TIME: 12/16/2016 03:04 [facility] COMPARISON: CHEST SINGLE AP, December 14, 2016, 16:58. INDICATIONS : Shortness of breath, possible pulmonary disease. MEDICAL HISTORY : Diabetes mellitus type II. SURGICAL HISTORY : None. ENCOUNTER: Subsequent ACUITY: 2 days PAIN SCORE: 0/10 LOCATION: Bilateral chest FINDINGS: The cardiac silhouette is enlarged in transverse diameter. There is prominence of the central pulmona ry vasculature with indistinct vascular margins compatible with vascular congestion but no evidence o f overt failure. The findings are improved when compared with the prior exam. No pleural effusions ar e identified. CONCLUSION: 1. Cardiomegaly and findings of vascular congestion without overt failure. The findings are improved when compared with the prior exam. Garrett Pickard MD on December 16, 2016 at 3:56 Board Certified Radiologist. This report was verified electronically.
[2016-12-16] MEDS: ACETAMINOPHEN/HYDROcodone 325 MG/7.5 MG TAB PO PRN (05:32)
[2016-12-16] MEDS: LEVOTHYROXINE SODIUM 75 MCG TAB PO SCH (06:00)
[2016-12-16] MEDS: METOPROLOL TARTRATE 100 MG TAB PO SCH ×3 (06:00→21:20)
[2016-12-16] MEDS: INSULIN ASPART SUPPLEMENTAL SCALE SQ SCH ×4 (07:00→21:00)
--- NOTE | 2016-12-16 08:02 | PD.CARD.PN ---
Subjective Subjective Remarks feels about the same. HR starting to respond to amio and metoprolol but 138 when talking to him. Objective Vital Signs / I&O Vital Signs Date Time Temp Pulse Resp B/P Pulse Ox O2 Delivery O2 Flow Rate FiO2 12/16/16 07:09 24 12/16/16 04:58 138 20 109/71 94 Nasal Cannula 5 12/16/16 04:33 130 24 116/63 95 Nasal Cannula 5 12/16/16 03:52 94 Nasal Cannula 5.00 12/16/16 02:50 121 24 138/80 93 Nasal Cannula 5 12/16/16 01:37 123 24 132/79 95 Nasal Cannula 5 12/16/16 00:15 121 24 111/70 94 Nasal Cannula 5 12/15/16 23:20 105 24 96/59 94 Nasal Cannula 5 12/15/16 22:17 108/58 12/15/16 22:15 142 24 108/58 95 Nasal Cannula 5 12/15/16 20:10 141 24 139/81 92 Nasal Cannula 5 12/15/16 16:33 98.4 126 19 123/79 94 Nasal Cannula 3 12/15/16 12:26 98.1 142 23 141/74 95 Nasal Cannula 3 12/15/16 09:00 145 27 139/64 90 Nasal Cannula 3 12/15/16 08:35 98.1 144 24 132/65 94 Nasal Cannula 3 12/15/16 08:35 98.1 144 24 132/65 94 Nasal Cannula 3 12/15/16 08:35 Nasal Cannula 3 I/O 12/15/16 12/15/16 12/15/16 12/16/16 12/16/16 12/16/16 07:00 15:00 23:00 07:00 15:00 23:00 Intake Total 320 ml Output Total 700 ml Balance -380 ml Intake Oral 320 ml Output Urine Total 700 ml # Voids 4 1 Laboratory Laboratory Tests Test 12/15/16 18:47 Blood Gas Puncture Site LT RADIAL Blood Gas Patient Temperature 98.6 Blood Gas HCO3 27 mmol/L Blood Gas Base Excess 1.6 mmol/L Blood Gas Oxygen Saturation 88 % Arterial Blood pH 7.34 Arterial Blood Partial 51 mmHg Pressure CO2 Arterial Blood Partial 68 mmHG Pressure O2 Arterial Blood Oxygen Content 13.4 Vol % Arterial Blood 2.6 % Carboxyhemoglobin Arterial Blood Methemoglobin 1.8 % Blood Gas Hemoglobin 10.7 G/DL Oxygen Delivery Device NASAL CANNULA Blood Gas Liter Flow 4 L/M Assessment and Plan Assessment and Plan Will add digoxin to regimen Garrett Goff MD, FACC Dec 16, 2016 08:02
[2016-12-16] MEDS: ASPIRIN 81 MG CHEW TAB CHEW SCH (08:13)
[2016-12-16] MEDS: FUROSEMIDE 40 MG/4 ML VIAL IV PUSH SCH ×2 (08:14→17:52)
[2016-12-16] MEDS ORDERED: DIGOXIN 0.5 MG/2 ML VIAL IV PUSH ONE ×3 (08:15→12:00)
[2016-12-16] MEDS: SODIUM CHLORIDE 0.9% FLUSH 5 ML FLUSH FLUSH SCH ×2 (08:17→21:00)
[2016-12-16] MEDS: metFORMIN HCL 500 MG TAB PO SCH ×3 (08:17→21:20)
[2016-12-16] MEDS: APIXABAN 5 MG TABLET PO SCH ×2 (08:17→21:20)
[2016-12-16] MEDS: CHOLECALCIFEROL (VIT D3) 1000 UNIT TAB PO SCH (08:17)
--- NOTE | 2016-12-16 09:52 | MB ---
cc: SHIRLEY GUILLAUME DATE OF CONSULTATION: 12/15/2016 REASON FOR CONSULTATION Respiratory distress and pulmonary infiltrates. HISTORY OF PRESENT ILLNESS This is a 51-year-old extremely obese white male with a history of diabetes, hypertension, atrial flutter and diastolic dysfunction. He has been admitted via the emergency room with progressive fatigue, shortness of breath increasing leg edema, orthopnea and occasional fevers over the past several days. The patient also has been having some apneic episodes and apparently does work at the [employer] and was unable to get to work over the past 2 days. He has a cough and was bringing up little whitish-yellow mucus and noticed some increased leg swelling and pain in his legs. He was seen in the emergency room for weakness and was placed on oxygen via nasal cannula, given IV antibiotic and cultures have been ordered of the blood and urine. Upon admission he was also noted to be tachycardic with a heart rate in the 130s and apparently has had a rapid heart beat for quite sometime now. He has been seen by cardiology. The patient is also known hypertensive. He has diabetes mellitus type 2 poorly controlled. He still smokes about half to three-quarter packs per day. PAST MEDICAL HISTORY Includes: 1. Hypertension. 2. Diabetes mellitus. 3. Hypothyroidism. 4. Obesity. 5. Diastolic dysfunction. 6. Atrial flutter. PAST SURGICAL HISTORY Denies significant surgery. ALLERGIES None listed. FAMILY HISTORY Noncontributory. HABITS The patient smokes half to one-pack per day and has done so for 30 years. Occasional marijuana. No alcohol use recently. MEDICATION 1. Glucophage 500 mg in the a.m. and 1000 mg b.i.d. 2. Vasotec 20 mg b.i.d. 3. Aldactone 50 mg a day. 4. Aspirin 81 mg a day. 5. Lasix 40 mg daily b.i.d. 6. K-Tab 10 mEq daily. 7. Glimepiride 4 mg daily. 8. Synthroid 75 mcg a day. FAMILY HISTORY Noncontributory. REVIEW OF SYSTEMS The patient is overweight. He has dizziness, postnasal drip. He has cough and wheezing. He has epigastric distress and nausea. No vomiting. Denies leg or calf muscle pain. He has had joint pains to his extremities. PHYSICAL EXAMINATION GENERAL: This moderately obese middle-aged white male is alert, face is plethoric. VITAL SIGNS: Blood pressure 130/80, pulse is 132, respirations 24, temperature 98.2. HEENT: Head normocephalic. Pupils are reactive. Sclerae were injected. Tongue is moist. Throat is injected. Nasal mucosa edematous. NECK: Supple. No bruits or thyroid enlargement. CHEST: Equal movements with occasional wheezes bilaterally with prolonged expirations and crackles scattered. CARDIAC: Heart sounds with irregular, S1-S2. No murmur. ABDOMEN: Soft, benign. No masses or organomegaly or tenderness. Bowel sounds are active. EXTREMITIES: Edema 2+ with pigmentation of the skin of the lower extremities. Reflexes are 1+. He does move all his extremities and there is no gross motor deficits. Cranial nerves grossly intact. RECTAL: Exam is deferred. IMPRESSION 1. Chronic respiratory failure. 2. Acute exacerbation of chronic bronchitis. 3. Bibasilar pulmonary infiltrates, probable pulmonary edema with atelectasis. 4. Diabetes mellitus. 5. Hypertension. PLAN The patient was placed on 3 liters of oxygen. We will also place him on BiPAP at night due to possibility of obstructive sleep apnea and he will be given BiPAP at 14/6-28% nasal cannula during the day at 3 liters, nebulized DuoNeb solution added four times a day and weight loss was suggested and counseled. The patient will need a pulmonary function study and a sputum for Gram stain and culture. He will also need a sleep study as an outpatient once he is out of the hospital. Thank you Dr. Davidson for this consultation. MD CHESTER Quintero/CHRISTA /12:00 AM /9:34 AM
[2016-12-16 10:32] LABS: BICARBONATE 27.9 MEQ/L (21.0-32.0); POTASSIUM 4.6 MEQ/L (3.5-5.1)
--- NOTE | 2016-12-16 16:06 | HHI.PR ---
Subjective Remarks No new complaints. Objective Vitals Vital Signs Date Time Temp Pulse Resp B/P Pulse Ox O2 Delivery O2 Flow Rate FiO2 12/16/16 11:51 88 Nasal Cannula 4.00 12/16/16 10:00 106 12/16/16 09:33 103 12/16/16 09:07 104 18 131/84 95 Nasal Cannula 5 12/16/16 08:48 101 12/16/16 08:29 97 Nasal Cannula 5.00 12/16/16 08:12 108 18 156/63 95 Nasal Cannula 5 12/16/16 07:09 24 12/16/16 04:58 138 20 109/71 94 Nasal Cannula 5 12/16/16 04:33 130 24 116/63 95 Nasal Cannula 5 12/16/16 03:52 94 Nasal Cannula 5.00 12/16/16 02:50 121 24 138/80 93 Nasal Cannula 5 12/16/16 01:37 123 24 132/79 95 Nasal Cannula 5 12/16/16 00:15 121 24 111/70 94 Nasal Cannula 5 12/15/16 23:20 105 24 96/59 94 Nasal Cannula 5 12/15/16 22:17 108/58 12/15/16 22:15 142 24 108/58 95 Nasal Cannula 5 12/15/16 20:10 141 24 139/81 92 Nasal Cannula 5 12/15/16 16:33 98.4 126 19 123/79 94 Nasal Cannula 3 12/15/16 12/15/16 12/16/16 15:00 23:00 07:00 Intake Total 320 ml Output Total 700 ml Balance -380 ml Intake Oral 320 ml Output Urine Total 700 ml # Voids 4 1 Result Diagram: 12/15/16 0713 12/16/16 [address] Angiography 12/14/16 1449 Signed Impressions: Service Date/Time: Wednesday, December 14, 2016 15:43 - CONCLUSION: 1. No pulmonary embolus is identified. 2. 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 3. There are some small subcarinal and pretracheal nodes. There is a node in the pretracheal goldie chain measuring 2.5 x 1.[address] scan in 6 months to ensure stability would be warranted. Marin Appiah MD Lower Extremity Ultrasound 12/14/16 0000 Signed Impressions: Service Date/Time: Wednesday, December 14, 2016 12:18 - CONCLUSION: 1. Diffuse soft tissue swelling. 2. Unable to compress the mid and distal portions of the superficial femoral vein due to regional soft tissue swelling and discomfort. No echogenic clot and normal Doppler flow identified, however. No sonographic or Doppler findings of deep venous thrombosis. Tony Roach MD Objective Remarks GENERAL: This is a well-nourished, well-developed patient, in no apparent distress. CARDIOVASCULAR: Regular rate and rhythm without murmurs, gallops, or rubs. RESPIRATORY: Clear to auscultation. Breath sounds equal bilaterally. No wheezes , rales, or rhonchi. GASTROINTESTINAL: Abdomen soft, non-tender, nondistended. Normal active bowel sounds MUSCULOSKELETAL: Extremities without clubbing, cyanosis, or edema. NEURO: Alert & Oriented x4 to person, place, time, situation. Moves all ext x4 A/P Problem List: (1) Cellulitis of right leg Status: Acute Plan: - Pt with several days of worsening RLE edema, erythema, pain and subjective fevers/chills. - Pt admitted under SIRS sepsis criteria with tachycardia, leukocytosis (16,000) - Pt was given a dose of IV Zosyn in the ER and 4L of IVF - Pt has reportedly been homeless for a couple of weeks and has been staying in a car or staying at [facility] (12/14) --> Diffuse soft tissue swelling. Unable to compress the mid and distal portions of the superficial femoral vein due to regional soft tissue swelling and discomfort. No echogenic clot and normal Doppler flow identified, however. No sonographic or Doppler findings of deep venous thrombosis. - CTA (12/14) --> No pulmonary embolus is identified. Patchy areas of ground- glass infiltrate throughout predominantly the lower lobes most suggestive of an extrinsic allergic alveolitis. There are some small subcarinal and pretracheal nodes. There is a node in the pretracheal goldie chain measuring 2.5 x 1.[address] scan in 6 months to ensure stability would be warranted. - Cont. IV Zosyn 12/14, restart 12/16 - IV lasix, KCL - eliquis - significant LE edema - resume lasix 40mg IV BID, observe creatinine (2) Acute renal insufficiency Status: Acute Plan: - worsening RI, since admission - likely d/t IV diuresis vs underlying CKD - case d/w Dr. Reilly, he will consult - continue IV lasix for now - repeat BMP in AM - obtain US Kidneys, ureters, bladder - pt states prior h/o nephrolithiasis (3) Atrial flutter with rapid ventricular response Status: Acute Plan: - comgmt with Cardiology - Case d/w Dr. Goff (12/15/16) - increase metoprolol to 100mg TID - IV amiodarone gtt - digoxin - Telemetry (12/16/16) Aflutter 100-110 (4) Chronic respiratory failure with hypercapnia Status: Acute Plan: - comgmt with Dr. Nicholas, Pulm Medicine - start Bipap at night 14/04 at 28%FiO2 - duonebs - PFTs - sputum studies (5) Alveolitis, allergic (extrinsic) Status: Acute Plan: - CTA chest (12/13/16) 1. No pulmonary embolus is identified. 2. 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 3. There are some small subcarinal and pretracheal nodes. There is a node in the pretracheal goldie chain measuring 2.5 x 1.[address] scan in 6 months to ensure stability would be warranted - requiring 3L NC - Pt works at [employer] facility - consult Pulmonary Medicine (6) Diabetes Status: Chronic Plan: - currently stable - Poorly controlled - Hgb A1C 9.7% in 11/2016 - Metformin 1000mg BID and 500mg at noon - NovoLog SSI - Hold Amaryl - Accu checks (7) HTN (hypertension) Status: Chronic Plan: - Pt normally takes Enalapril 20mg po BID and Norvasc 10mg po daily. - Hold home BP meds - metoprolol (8) Diastolic dysfunction Status: Chronic Plan: - Last 2D echo in 2014 noted diastolic dysfunction - See above. (9) Chronic edema Status: Chronic Plan: - See above. (10) Hypothyroidism Status: Chronic Plan: - Cont. home meds (11) Tobacco abuse Status: Chronic Plan: - Discussed tobacco cessation - Offered the pt a Nicotine patch which he declined for now. (12) Morbid obesity Status: Acute Plan: - after discharge, pt will need to work on weight loss - recommend f/u with [facility] diet consultant after discharge (13) TRE (obstructive sleep apnea) Status: Acute Plan: - strongly suspect that pt has undiagnosed TRE based on history of wake time somnolence and body habitus - pt will need outpt sleep study for TRE after discharge Problem Qualifiers (1) Diabetes: Qualified Code: E11.8 - Type 2 diabetes mellitus with complication, with long- term current use of insulin (2) Morbid obesity: Qualified Code: E66.01 - Morbid obesity due to excess calories Juan Davidson DO Dec 16, 2016 16:06
[2016-12-16] MEDS: PIPERACIL-TAZO 4.5 GM PREMIX 100 ML IV SCH ×2 (17:47→23:00)
--- NOTE | 2016-12-16 18:59 | RADRPT ---
EXAM DATE/TIME: 12/16/2016 16:23 [place] COMPARISON: No previous studies available for comparison. INDICATIONS : Increased lab values. MEDICAL HISTORY : Hypertension. Hypothyroidism. Tachycardia. Diabetes. Morbidy obese. SURGICAL HISTORY : None. ENCOUNTER: Initial ACUITY: 1 day PAIN SCORE: 0/10 LOCATION: Bilateral flank MEASUREMENTS: RIGHT KIDNEY: 12.8 x 6.2 x 6.3 cm LEFT KIDNEY: 11.2 x 5.6 x 5.2 cm FINDINGS: RIGHT KIDNEY: Renal cortex is normal in thickness and echotexture. No hydronephrosis, stone, or mass. LEFT KIDNEY: Renal cortex is normal in thickness and echotexture. No hydronephrosis, stone, or mass. BLADDER: Within normal limits given the degree of distension. CONCLUSION: No acute disease. Rogerio Wayne MD on December 16, 2016 at 18:57 Board Certified Radiologist. This report was verified electronically.
--- NOTE | 2016-12-16 19:49 | PD.CONS ---
HPI Consult Requested By Reason for Consult Acute renal insufficiency. Primary Care Physician Rakesh Rey MD ([place]) History of Present Illness This patient is a 51-year-old male with a history of long-standing diabetes mellitus apparently poorly controlled, hypertension who denies any previous knowledge of renal disease including proteinuria who was admitted after presenting with increasing lower extremity edema, atrial flutter with rapid ventricular rate. Also being treated for cellulitis lower extremity. On presentation creatinine level was 1.31. Current baseline level prior to this admission unknown. Subsequent evaluation is indicated that his ejection fraction which was previously said to be 55% has deteriorated to 30-35%. Patient is currently being diuresed for fluid retention and pulmonary congestion. It is noted that patient had a CTA performed on the of this month. Review of Systems Constitutional: COMPLAINS OF: Fatigue, DENIES: Diaphoretic episodes, Fever, Weight gain, Weight loss, Chills, Dizziness, Change in appetite, Night Sweats Endocrine: DENIES: Heat/cold intolerance, Polydipsia, Polyuria, Polyphagia Cardiovascular: COMPLAINS OF: Dyspnea on Exertion, Lower Extremity Edema, DENIES: Chest pain, Palpitations, Syncope, PND, Orthopnea, Claudication Gastrointestinal: DENIES: Abdominal pain, Black stools, Bloody stools, Constipation, Diarrhea, Nausea, Vomiting, Difficulty Swallowing, Anorexia Musculoskeletal: COMPLAINS OF: Joint pain, DENIES: Muscle aches, Stiffness, Joint Swelling, Back pain, Neck pain Past Family Social History Allergies: Coded Allergies: No Known Allergies (Unverified , 12/14/16) Past Medical History Poorly controlled diabetes mellitus Hypertension Atrial flutter Cardiomyopathy with ejection fraction of 30-35% this admission. Mention of previous diastolic dysfunction. Tobacco use. Past Surgical History Noncontributory to current complaint. Reported Medications Reported Meds & Active Scripts Active Reported Norvasc (Amlodipine Besylate) 10 Mg Tab 10 Mg PO DAILY Novolin 70-30 Inj (Insulin Human Isoph/Insulin Regular) 1,000 Unit/10 Ml Vial 85 Units SQ BID Glimepiride 4 Mg Tab 8 Mg PO DAILY Take with breakfast or first main meal Levothyroxine (Levothyroxine Sodium) 75 Mcg Tab 75 Mcg PO DAILY Vitamin D3 (Cholecalciferol) 1,000 Unit Tab 1,000 Units PO DAILY K-Tab (Potassium Chloride) 10 Meq Tab 10 Meq PO DAILY Lasix (Furosemide) 40 Mg Tab 40 Mg PO DAILY IN THE PM Lasix (Furosemide) 40 Mg Tab 80 Mg PO DAILY IN THE AM Glucophage (Metformin HCl) 500 Mg Tab 500 Mg PO DAILY AT 12NOON With a meal Glucophage (Metformin HCl) 500 Mg Tab 1,000 Mg PO BID With meals Vasotec (Enalapril Maleate) 20 Mg Tab 20 Mg PO BID Aldactone (Spironolactone) 50 Mg Tab 50 Mg PO DAILY Aspirin 81 Mg Chew 81 Mg CHEW DAILY Active Ordered Medications Current Medications Diltiazem HCl (Cardizem Inj) 25 mg STK-MED ONCE .ROUTE ; Start 12/14/16 at 14:47 ; Stop 12/14/16 at 14:48; Status DC Diltiazem HCl (Cardizem Inj) 48 mg BOLUS ONCE IV PUSH Last administered on 14:57; Start 12/14/16 at 15:00; Stop 12/14/16 at 15:01; Status DC IV Flush 2 ml 2 ml UNSCH PRN IVF FLUSH AFTER USING IV ACCESS; Start 12/14/16 at 15:00; Stop 12/14/16 at 16:35; Status DC Piperacillin Sod/ Tazobactam Sod 100 ml @ 200 mls/hr ONCE STAT IV Last administered on 12/14/16 15:36; Start 12/14/16 at 15:11; Stop 12/14/16 at 15:40 ; Status DC Sodium Chloride 1,000 ml @ 1,000 mls/hr Q1H ONCE IV Last administered on 15:36; Start 12/14/16 at 15:11; Stop 12/14/16 at 16:10; Status DC Sodium Chloride 1,000 ml @ 1,000 mls/hr Q1H ONCE IV Last administered on 16:27; Start 12/14/16 at 15:11; Stop 12/14/16 at 16:10; Status DC Sodium Chloride 1,000 ml @ 1,000 mls/hr Q1H ONCE IV Last administered on 16:27; Start 12/14/16 at 15:11; Stop 12/14/16 at 16:10; Status DC Sodium Chloride (NS 1000 ml Inj) 900 ml @ 1,000 mls/hr Q54M ONCE IV Last administered on 12/14/16 16:48; Start 12/14/16 at 15:11; Stop 12/14/16 at 16:04 ; Status DC Iohexol (Omnipaque 350 Inj) 69 ml STK-MED ONCE IV Last administered on 15:45; Start 12/14/16 at 15:45; Stop 12/14/16 at 15:46; Status DC IV Flush (NS Flush) 2 ml UNSCH PRN FLUSH FLUSH AFTER USING IV ACCESS; Start at 16:30 IV Flush (NS Flush) 2 ml BID FLUSH Last administered on 12/15/16 09:01; Start 12/14/16 at 21:00 Acetaminophen (Tylenol) 650 mg Q4H PRN PO TEMP > 100.4; Start 12/14/16 at 16:30 Ondansetron HCl (Zofran Inj) 4 mg Q6H PRN IVP NAUSEA OR VOMITING; Start at 16:30 Bisacodyl (Dulcolax Supp) 10 mg DAILY PRN [place] CONSTIPATION; Start 12/14/16 at 16 :30 Magnesium Hydroxide (Milk Of Magnesia Liq) 30 ml Q12H PRN PO CONSTIPATION; Start 12/14/16 at 16:30 Enoxaparin Sodium (Lovenox Inj) 30 mg Q24H SQ Last administered on 12/14/16 16 :49; Start 12/14/16 at 17:00; Stop 12/14/16 at 22:10; Status DC Naloxone HCl (Narcan Inj) 0.4 mg UNSCH PRN IV SEE LABEL COMMENTS; Start at 16:30 Aspirin (Aspirin Chew) 81 mg DAILY CHEW Last administered on 12/16/16 08:13; Start 12/15/16 at 09:00 Cholecalciferol (Vitamin D3) 1,000 units DAILY PO Last administered on 08:17; Start 12/15/16 at 09:00 Levothyroxine Sodium (Synthroid) 75 mcg DAILY@06 PO Last administered on 06:00; Start 12/15/16 at 06:00 Metformin HCl (Glucophage) 1,000 mg BID PO Last administered on 12/16/16 08:17 ; Start 12/14/16 at 21:00 Metformin HCl (Glucophage) 500 mg DAILY@12 PO Last administered on 12/16/16 13 :21; Start 12/15/16 at 12:00 Insulin Aspart (NovoLOG SUPPLEMENTAL SCALE) 1 ACHS SLIDING SCALE SQ Last administered on 12/16/16 17:48; Start 12/14/16 at 21:00 Dextrose (D50w (Vial) Inj) 25 ml UNSCH PRN IV PUSH HYPOGLYCEMIA - SEE COMMENTS ; Start 12/14/16 at 16:45 Glucagon (Glucagon Inj) 1 mg UNSCH PRN OTHER HYPOGLYCEMIA-SEE COMMENTS; Start 12/14/16 at 16:45 Furosemide (Lasix Inj) 40 mg BID@09,18 IV PUSH Last administered on 12/16/16 17:52; Start 12/14/16 at 18:00 Potassium Chloride (KCl) 10 meq ONCE ONCE PO ; Start 12/14/16 at 17:15; Stop at 17:44; Status DC Acetaminophen/ Hydrocodone Bitart ([place] 7.5-325 Mg) 1 tab Q6H PRN PO pain 2- 10 Last administered on 12/16/16 05:32; Start 12/14/16 at 17:15 Acetaminophen/ Hydrocodone Bitart 1 tab 1 tab ONCE ONCE PO Last administered on 12/14/16 17:59; Start 12/14/16 at 17:15; Stop 12/14/16 at 17:19; Status DC Diltiazem HCl/ Sodium Chloride (Cardizem Inj/NS Inj) 125 ml @ 0 mls/hr TITRATE IV Last administered on 12/14/16 20:39; Start 12/14/16 at 17:30; Stop at 22:06; Status DC Potassium Chloride (KCl) 20 meq DAILY PO ; Start 12/15/16 at 09:00; Stop at 09:00; Status DC Enoxaparin Sodium (Lovenox Inj) 100 mg Q12H SQ Last administered on 12/15/16 09:01; Start 12/14/16 at 22:00; Stop 12/15/16 at 11:53; Status DC Metoprolol Tartrate (Lopressor) 100 mg Q12H PO Last administered on 12/14/16 22:25; Start 12/14/16 at 22:00; Stop 12/15/16 at 06:59; Status DC Metoprolol Tartrate (Lopressor) 100 mg Q12HR PO Last administered on 12/15/16 09:01; Start 12/15/16 at 09:00; Stop 12/15/16 at 11:51; Status DC Metoprolol Tartrate (Lopressor) 100 mg Q8HR PO Last administered on 12/16/16 13:21; Start 12/15/16 at 14:00 Apixaban 5 mg 5 mg BID PO Last administered on 12/16/16 08:17; Start 12/15/16 at 21:00 Amiodarone HCl 900 mg/Dextrose 500 ml @ 0 mls/hr CONTINUOUS IV ; Start 12/15/16 at 13:15; Stop 12/15/16 at 13:20; Status DC Amiodarone HCl/ Dextrose (Cordarone Inj/ D5W ([place]) Inj) 250 ml @ 0 mls/hr CONTINUOUS IV Last administered on 12/15/16 23:19; Start 12/15/16 at 13:30 Digoxin (Lanoxin Inj) 0.5 mg ONCE ONCE IV PUSH Last administered on 12/16/16 08:16; Start 12/16/16 at 08:15; Stop 12/16/16 at 08:16; Status DC Digoxin (Lanoxin Inj) 0.25 mg ONCE ONCE IV PUSH Last administered on 10:00; Start 12/16/16 at 10:00; Stop 12/16/16 at 10:01; Status DC Digoxin 0.25 mg 0.25 mg ONCE ONCE IV PUSH Last administered on 12/16/16 13:22 ; Start 12/16/16 at 12:00; Stop 12/16/16 at 12:01; Status DC Piperacillin Sod/ Tazobactam Sod (Zosyn 4.5 Gm Premix) 100 ml @ 200 mls/hr Q6H IV Last administered on 12/16/16 17:47; Start 12/16/16 at 17:00 Family History As per H&P. Social History Tobacco use. Occasional alcohol use. Physical Exam Vital Signs Vital Signs Date Time Temp Pulse Resp B/P Pulse Ox O2 Delivery O2 Flow Rate FiO2 12/16/16 19:19 92 Nasal Cannula 4.00 12/16/16 16:00 88 12/16/16 15:00 102 12/16/16 14:00 106 12/16/16 13:00 98 12/16/16 12:00 98 12/16/16 11:51 88 Nasal Cannula 4.00 12/16/16 11:00 96 12/16/16 10:00 106 12/16/16 09:33 103 12/16/16 09:07 104 18 131/84 95 Nasal Cannula 5 12/16/16 08:48 101 12/16/16 08:29 97 Nasal Cannula 5.00 12/16/16 08:12 108 18 156/63 95 Nasal Cannula 5 12/16/16 07:09 24 12/16/16 04:58 138 20 109/71 94 Nasal Cannula 5 12/16/16 04:33 130 24 116/63 95 Nasal Cannula 5 12/16/16 03:52 94 Nasal Cannula 5.00 12/16/16 02:50 121 24 138/80 93 Nasal Cannula 5 12/16/16 01:37 123 24 132/79 95 Nasal Cannula 5 12/16/16 00:15 121 24 111/70 94 Nasal Cannula 5 12/15/16 23:20 105 24 96/59 94 Nasal Cannula 5 12/15/16 22:17 108/58 12/15/16 22:15 142 24 108/58 95 Nasal Cannula 5 12/15/16 20:10 141 24 139/81 92 Nasal Cannula 5 Physical Exam GENERAL: Morbidly obese male who appears to have mild dyspnea. SKIN: Warm and dry. HEAD: Normocephalic. EYES: No scleral icterus. No injection or drainage. NECK: Supple, trachea midline. No JVD or lymphadenopathy. CARDIOVASCULAR: Regular rate and rhythm without murmurs, gallops, or rubs. RESPIRATORY: Breath sounds equal bilaterally. No accessory muscle use. GASTROINTESTINAL: Abdomen soft, non-tender, markedly obese abdomen.. MUSCULOSKELETAL: No cyanosis, 3+ pitting edema legs, 1+ pitting edema of the upper extremity and dependent hips. BACK: Nontender without obvious deformity. No CVA tenderness. Laboratory Laboratory Tests Test 12/16/16 09:29 Sodium Level 136 Potassium Level 4.6 Chloride Level 101 Carbon Dioxide Level 27.9 Anion Gap 7 Blood Urea Nitrogen 36 Creatinine 1.70 Estimat Glomerular Filtration 43 Rate Random Glucose 168 Calcium Level 8.8 Date/Time Procedure Status Source Growth 12/14/16 15:35 Aerobic Blood Culture - Preliminary Resulted Blood Peripheral NO GROWTH IN 2 DAYS 12/14/16 15:35 Anaerobic Blood Culture - Preliminary Resulted Blood Peripheral NO GROWTH IN 2 DAYS Result Diagram: 12/15/16 0713 12/16/16 0929 Imaging Last 48 hours Impressions Chest X-Ray 12/16/16 0600 Signed Impressions: Service Date/Time: Friday, December 16, 2016 03:04 - CONCLUSION: 1. Cardiomegaly and findings of vascular congestion without overt failure. The findings are improved when compared with the prior exam. Garrett Pickard MD Renal Ultrasound 12/16/16 0000 Signed Impressions: Service Date/Time: Friday, December 16, 2016 16:23 - CONCLUSION: No acute disease. Rogerio Wayne MD Assessment and Plan Problem List: (1) Acute renal insufficiency Plan: I suspect the patient has acute on chronic renal insufficiency. Acute component may be related to contrast nephrotoxicity as well as a possible component of cardiorenal syndrome. Chronic kidney disease is suspected secondary to duration of diabetes mellitus, poor control previously. Apparently was hospitalized at [facility] few months ago so attempt to obtain records to determine the status of his renal function at that time. Laboratory studies as ordered. Continue diuresis for the present. Contrast nephrotoxicity has to run its course and the creatinine should hopefully peak and then subsequently improve. Medications should be adjusted for the patient's estimated GFR if clinically indicated. Avoid agents with significant potential for nephrotoxicity possible including NSAIDs for analgesia, iodine contrast agents. Gadolinium is contraindicated if the GFR is below 30. (2) Congestive heart failure Plan: Continue diuresis for the present with monitoring of volume status. Diuretics may have to be increased. (3) Cardiomyopathy Plan: Deterioration in ejection fraction as noted above. (4) Chronic respiratory failure with hypercapnia (5) HTN (hypertension) (6) Morbid obesity (7) Diabetes Plan: If the patient's renal indices continue to deteriorate I would recommend discontinuance of metformin for the present as there is a potential development of lactic acidosis in the setting of severe renal insufficiency with metformin which is potentially a serious comorbidity Problem Qualifiers (1) Morbid obesity: Qualified Code: E66.01 - Morbid obesity due to excess calories (2) Diabetes: Qualified Code: E11.8 - Type 2 diabetes mellitus with complication, with long- term current use of insulin Delia Reilly MD Dec 16, 2016 19:49
[2016-12-17] VITALS (26 sets, daily range): BP systolic 105–141; BP diastolic 62–79; PULSE 52–140; RESP 14–24; TEMP 97.9–98.7; O2SAT 91–95
[2016-12-17] MEDS: PIPERACIL-TAZO 4.5 GM PREMIX 100 ML IV SCH ×4 (05:00→22:45)
[2016-12-17] MEDS: METOPROLOL TARTRATE 100 MG TAB PO SCH ×3 (05:39→22:45)
[2016-12-17] MEDS: LEVOTHYROXINE SODIUM 75 MCG TAB PO SCH (05:39)
[2016-12-17 06:25] LABS: AUTOMATED NEUTROPHIL # 8.9 TH/MM3 (1.8-7.7); BASOPHIL % 0.3 % (0.0-2.0); EOSINOPHIL # 0.2 TH/MM3 (0-0.4); EOSINOPHIL % 1.5 % (0.0-4.0); HEMATOCRIT 31.7 % (39.0-51.0); HEMO FLAGS DIFF FINAL; LYMPH % 9.9 % (9.0-44.0); LYMPHOCYTE # 1.1 TH/MM3 (1.0-4.8); MEAN CELL VOLUME 81.4 FL (80.0-100.0); MEAN CORPUSCULAR HEMOGLOBIN 25.8 PG (27.0-34.0); MEAN CORPUSCULAR HGB CONC 31.7 % (32.0-36.0); MONO % 8.4 % (0.0-8.0); NEUT % 79.9 % (16.0-70.0); PLATELET COUNT 266 TH/MM3 (150-450); RED CELL DISTRIBUTION WIDTH 16.4 % (11.6-17.2); WHITE BLOOD COUNT 11.2 TH/MM3 (4.0-11.0)
[2016-12-17 06:37] LABS: ANION GAP 9 MEQ/L (5-15); BICARBONATE 27.4 MEQ/L (21.0-32.0); BLOOD UREA NITROGEN 36 MG/DL (7-18); CHLORIDE 101 MEQ/L (98-107); GLOMERULAR FILTRATION RATE 49 ML/MIN (>89); SODIUM (NA) 137 MEQ/L (136-145); TRANSFERRIN IRON PROFILE 209 MG/DL (200-360)
[2016-12-17] MEDS: INSULIN ASPART SUPPLEMENTAL SCALE SQ SCH ×4 (06:48→21:00)
--- NOTE | 2016-12-17 07:51 | PD.CARD.PN ---
Subjective Subjective Remarks no CV complaints Objective Vital Signs / I&O Vital Signs Date Time Temp Pulse Resp B/P Pulse Ox O2 Delivery O2 Flow Rate FiO2 12/17/16 06:00 118 12/17/16 05:00 110 12/17/16 04:00 102 12/17/16 04:00 98.0 88 21 118/74 93 12/17/16 03:00 112 12/17/16 02:00 108 12/17/16 01:00 100 12/17/16 00:00 86 12/17/16 00:00 98.0 107 21 120/74 91 12/16/16 23:00 92 12/16/16 22:00 88 12/16/16 21:00 112 12/16/16 20:00 92 12/16/16 20:00 99.2 104 20 98/62 92 12/16/16 20:00 104 12/16/16 19:19 92 Nasal Cannula 4.00 12/16/16 16:00 88 12/16/16 15:00 102 12/16/16 14:00 106 12/16/16 13:00 98 12/16/16 12:00 98 12/16/16 11:51 88 Nasal Cannula 4.00 12/16/16 11:00 96 12/16/16 10:00 106 12/16/16 09:33 103 12/16/16 09:07 104 18 131/84 95 Nasal Cannula 5 12/16/16 08:48 101 12/16/16 08:29 97 Nasal Cannula 5.00 12/16/16 08:12 108 18 156/63 95 Nasal Cannula 5 Physical Exam GENERAL: Well-nourished, well-developed patient in no apparent distress. NECK: No JVD. No carotid bruit. CARDIOVASCULAR: IR IR. S1/S2 no murmur, rub, or gallop. RESPIRATORY: No accessory muscle use. Clear to auscultation. Breath sounds equal bilaterally. GASTROINTESTINAL: Abdomen soft, non-tender, nondistended. MUSCULOSKELETAL: Extremities without clubbing, cyanosis, or edema. Laboratory Laboratory Tests Test 12/16/16 12/17/16 09:29 05:11 Sodium Level 136 MEQ/L 137 MEQ/L Potassium Level 4.6 MEQ/L 4.0 MEQ/L Chloride Level 101 MEQ/L 101 MEQ/L Carbon Dioxide Level 27.9 MEQ/L 27.4 MEQ/L Anion Gap 7 MEQ/L 9 MEQ/L Blood Urea Nitrogen 36 MG/DL 36 MG/DL Creatinine 1.70 MG/DL 1.52 MG/DL Estimat Glomerular Filtration 43 ML/MIN 49 ML/MIN Rate Random Glucose 168 MG/DL 122 MG/DL Calcium Level 8.8 MG/DL 8.7 MG/DL White Blood Count 11.2 TH/MM3 Red Blood Count 3.90 MIL/MM3 Hemoglobin 10.1 GM/DL Hematocrit 31.7 % Mean Corpuscular Volume 81.4 FL Mean Corpuscular Hemoglobin 25.8 PG Mean Corpuscular Hemoglobin 31.7 % Concent Red Cell Distribution Width 16.4 % Platelet Count 266 TH/MM3 Mean Platelet Volume 8.5 FL Neutrophils (%) (Auto) 79.9 % Lymphocytes (%) (Auto) 9.9 % Monocytes (%) (Auto) 8.4 % Eosinophils (%) (Auto) 1.5 % Basophils (%) (Auto) 0.3 % Neutrophils # (Auto) 8.9 TH/MM3 Lymphocytes # (Auto) 1.1 TH/MM3 Monocytes # (Auto) 0.9 TH/MM3 Eosinophils # (Auto) 0.2 TH/MM3 Basophils # (Auto) 0.0 TH/MM3 CBC Comment DIFF FINAL Differential Comment Phosphorus Level 4.2 MG/DL Iron Level 19 MCG/DL Total Iron Binding Capacity 293 MCG/DL Percent Iron Saturation 6.5 % Albumin 2.8 GM/DL Complement C3 153 MG/DL Complement C4 40 MG/DL Assessment and Plan Problem List: (1) Cardiomyopathy (2) HTN (hypertension) (3) Atrial flutter with rapid ventricular response Assessment and Plan AF - heart rate better controlled on digoxin, stop amio gtt and concert to PO. Plan for DCC after 2 to 3 weeks of anticoagulation cardiomyopathy - start lsiniopril 2.5 mg daily. It is likely that his LV dysfunction is related to tachycardia mediates cardiomyopathy Rory Moore Dec 17, 2016 07:51
[2016-12-17] MEDS: CHOLECALCIFEROL (VIT D3) 1000 UNIT TAB PO SCH (08:15)
[2016-12-17] MEDS: metFORMIN HCL 500 MG TAB PO SCH ×3 (08:15→22:45)
[2016-12-17] MEDS: APIXABAN 5 MG TABLET PO SCH ×2 (08:15→22:45)
[2016-12-17] MEDS: FUROSEMIDE 40 MG/4 ML VIAL IV PUSH SCH (08:15)
[2016-12-17] MEDS: SODIUM CHLORIDE 0.9% FLUSH 5 ML FLUSH FLUSH SCH ×2 (08:15→22:46)
[2016-12-17] MEDS: ASPIRIN 81 MG CHEW TAB CHEW SCH (08:15)
[2016-12-17] MEDS: AMIODARONE 200 MG TAB PO SCH (08:17)
[2016-12-17] MEDS: LISINOPRIL 5 MG TAB PO SCH (08:17)
--- NOTE | 2016-12-17 09:36 | HHI.PR ---
Subjective Remarks No new complaints. No chest pain, no palpitations, no worsening SOB Pt is eager for discharge [facility] d/t financial constraints. Objective Vitals Vital Signs Date Time Temp Pulse Resp B/P Pulse Ox O2 Delivery O2 Flow Rate FiO2 12/17/16 08:17 93 21 12/17/16 06:00 118 12/17/16 05:00 110 12/17/16 04:00 102 12/17/16 04:00 98.0 88 21 118/74 93 12/17/16 03:00 112 12/17/16 02:00 108 12/17/16 01:00 100 12/17/16 00:00 86 12/17/16 00:00 98.0 107 21 120/74 91 12/16/16 23:00 92 12/16/16 22:00 88 12/16/16 21:00 112 12/16/16 20:00 92 12/16/16 20:00 99.2 104 20 98/62 92 12/16/16 20:00 104 12/16/16 19:19 92 Nasal Cannula 4.00 12/16/16 16:00 88 12/16/16 15:00 102 12/16/16 14:00 106 12/16/16 13:00 98 12/16/16 12:00 98 12/16/16 11:51 88 Nasal Cannula 4.00 12/16/16 11:00 96 12/16/16 10:00 106 12/16/16 09:33 103 Result Diagram: 12/17/16 0511 12/17/[address] Angiography 12/14/16 1449 Signed Impressions: Service Date/Time: Wednesday, December 14, 2016 15:43 - CONCLUSION: 1. No pulmonary embolus is identified. 2. 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 3. There are some small subcarinal and pretracheal nodes. There is a node in the pretracheal goldie chain measuring 2.5 x [address] scan in 6 months to ensure stability would be warranted. Marin Appiah MD Lower Extremity Ultrasound 12/14/16 0000 Signed Impressions: Service Date/Time: Wednesday, December 14, 2016 12:18 - CONCLUSION: 1. Diffuse soft tissue swelling. 2. Unable to compress the mid and distal portions of the superficial femoral vein due to regional soft tissue swelling and discomfort. No echogenic clot and normal Doppler flow identified, however. No sonographic or Doppler findings of deep venous thrombosis. Tony Roach MD Objective Remarks GENERAL: This is a well-nourished, well-developed patient, in no apparent distress. CARDIOVASCULAR: Regular rate and rhythm without murmurs, gallops, or rubs. RESPIRATORY: Clear to auscultation. Breath sounds equal bilaterally. No wheezes , rales, or rhonchi. GASTROINTESTINAL: Abdomen soft, non-tender, nondistended. Normal active bowel sounds MUSCULOSKELETAL: Extremities without clubbing, cyanosis, or edema. NEURO: Alert & Oriented x4 to person, place, time, situation. Moves all ext x4 A/P Problem List: (1) Cellulitis of right leg Status: Acute Plan: - Pt with several days of worsening RLE edema, erythema, pain and subjective fevers/chills. - Pt admitted under SIRS sepsis criteria with tachycardia, leukocytosis (16,000) - Pt was given a dose of IV Zosyn in the ER and 4L of IVF - Pt has reportedly been homeless for a couple of weeks and has been staying in a car or staying at [facility] (12/14) --> Diffuse soft tissue swelling. Unable to compress the mid and distal portions of the superficial femoral vein due to regional soft tissue swelling and discomfort. No echogenic clot and normal Doppler flow identified, however. No sonographic or Doppler findings of deep venous thrombosis. - CTA (12/14) --> No pulmonary embolus is identified. Patchy areas of ground- glass infiltrate throughout predominantly the lower lobes most suggestive of an extrinsic allergic alveolitis. There are some small subcarinal and pretracheal nodes. There is a node in the pretracheal goldie chain measuring 2.5 x 1.[address] scan in 6 months to ensure stability would be warranted. - Cont. IV Zosyn 12/14, restart 12/16 - IV lasix, KCL - eliquis - significant LE edema - increase lasix to 80mg IV BID, observe creatinine (2) Acute renal insufficiency Status: Acute Plan: - now improving - Cogmt with Nephrology, appreciate input from Dr. Reilly - likely d/t IV diuresis, underlying CKD, and possibly contrast nephropathy with recent CTA (12/14/16) - increase IV lasix to 80mg BID, observe - repeat BMP in AM - US Kidneys, ureters, bladder (12/16/16) --> NO acute findings - pt states prior h/o nephrolithiasis (3) Atrial flutter with rapid ventricular response Status: Acute Plan: - comgmt with Cardiology - Case d/w Dr. Goff (12/15/16) - increase metoprolol to 100mg TID - amiodarone converted to PO (12/17/16) - digoxin - obtain digoxin level in AM - Telemetry (12/17/16): HR 80-90 (4) Chronic respiratory failure with hypercapnia Status: Acute Plan: - comgmt with Dr. Nicholas, Pulm Medicine - start Bipap at night 14/04 at 28%FiO2 - duonebs - PFTs - sputum studies (5) Alveolitis, allergic (extrinsic) Status: Acute Plan: - CTA chest (12/13/16) 1. No pulmonary embolus is identified. 2. 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 3. There are some small subcarinal and pretracheal nodes. There is a node in the pretracheal goldie chain measuring 2.5 x 1.[address] scan in 6 months to ensure stability would be warranted - requiring 3L NC - Pt works at [employer] facility (6) Diabetes Status: Chronic Plan: - currently stable - Poorly controlled - Hgb A1C 9.7% in 11/2016 - Metformin 1000mg BID and 500mg at noon - NovoLog SSI - resume Amaryl at 1mg BID - Accu checks (7) HTN (hypertension) Status: Chronic Plan: - Pt normally takes Enalapril 20mg po BID and Norvasc 10mg po daily. - Hold home BP meds - metoprolol 100mg TID - lisinopril 2.5mg daily (started 12/17/16) (8) Diastolic dysfunction Status: Chronic Plan: - Last 2D echo in 2014 noted diastolic dysfunction - See above. (9) Chronic edema Status: Chronic Plan: - See above. (10) Hypothyroidism Status: Chronic Plan: - Cont. home meds (11) Tobacco abuse Status: Chronic Plan: - Discussed tobacco cessation - Offered the pt a Nicotine patch which he declined for now. (12) Morbid obesity Status: Acute Plan: - after discharge, pt will need to work on weight loss - recommend f/u with [facility] h[facility] after discharge (13) TRE (obstructive sleep apnea) Status: Acute Plan: - strongly suspect that pt has undiagnosed TRE based on history of wake time somnolence and body habitus - pt will need outpt sleep study for TRE after discharge Problem Qualifiers (1) Diabetes: Qualified Code: E11.8 - Type 2 diabetes mellitus with complication, with long- term current use of insulin (2) Morbid obesity: Qualified Code: E66.01 - Morbid obesity due to excess calories Juan Davidson DO Dec 17, 2016 09:36
[2016-12-17] MEDS ORDERED: FUROSEMIDE 40 MG/4 ML VIAL IV PUSH ONE (10:30)
[2016-12-17] MEDS: GLIMEPIRIDE 1 MG TAB PO SCH (10:36)
[2016-12-17] MEDS: FUROSEMIDE 100 MG/10 ML VIAL IV PUSH SCH (17:06)
--- NOTE | 2016-12-17 19:24 | HHI.NPPN ---
Subjective History of Present Illness This patient is a 51-year-old male with a history of long-standing diabetes mellitus apparently poorly controlled, hypertension who denies any previous knowledge of renal disease including proteinuria who was admitted after presenting with increasing lower extremity edema, atrial flutter with rapid ventricular rate. Also being treated for cellulitis lower extremity. On presentation creatinine level was 1.31. Current baseline level prior to this admission unknown. Subsequent evaluation is indicated that his ejection fraction which was previously said to be 55% has deteriorated to 30-35%. Patient is currently being diuresed for fluid retention and pulmonary congestion. It is noted that patient had a CTA performed on the of this month. Interval History Pt feeling OK. Is very anxious to go home. Objective Data Data Vital Signs Date Time Temp Pulse Resp B/P Pulse Ox O2 Delivery O2 Flow Rate FiO2 12/17/16 18:00 102 12/17/16 17:00 104 12/17/16 16:00 91 12/17/16 16:00 98.7 58 24 139/79 93 12/17/16 15:00 90 12/17/16 14:00 74 12/17/16 13:00 126 12/17/16 12:00 98.2 52 24 141/78 95 12/17/16 12:00 106 12/17/16 11:00 92 12/17/16 10:00 92 12/17/16 09:00 92 12/17/16 08:17 93 21 12/17/16 08:00 90 12/17/16 08:00 97.9 52 22 126/62 93 12/17/16 07:00 102 12/17/16 06:00 118 12/17/16 05:00 110 12/17/16 04:00 102 12/17/16 04:00 98.0 88 21 118/74 93 12/17/16 03:00 112 12/17/16 02:00 108 12/17/16 01:00 100 12/17/16 00:00 86 12/17/16 00:00 98.0 107 21 120/74 91 12/16/16 23:00 92 12/16/16 22:00 88 12/16/16 21:00 112 12/16/16 20:00 92 12/16/16 20:00 99.2 104 20 98/62 92 2/15/17 20:00 104 12/16/16 19:19 92 Nasal Cannula 4.00 -: 12/17/16 0511 12/17/16 0511 Medication Review Current Medications Medications (Trade) Dose Ordered Sig/Kennedy Route Start Time Stop Time Status Last Admin (NS Flush) 2 ml UNSCH PRN FLUSH 12/14/16 16:30 (NS Flush) 2 ml BID FLUSH 12/14/16 21:00 12/17/16 08:15 (Tylenol) 650 mg Q4H PRN PO 12/14/16 16:30 (Zofran Inj) 4 mg Q6H PRN IVP 12/14/16 16:30 (Dulcolax Supp) 10 mg DAILY PRN TN 12/14/16 16:30 (Milk Of Magnyvette Liq) 30 ml Q12H PRN PO 12/14/16 16:30 (Narcan Inj) 0.4 mg UNSCH PRN IV 12/14/16 16:30 (Aspirin Chew) 81 mg DAILY CHEW 12/15/16 09:00 12/17/16 08:15 (Vitamin D3) 1,000 units DAILY PO 12/15/16 09:00 12/17/16 08:15 (Synthroid) 75 mcg DAILY@06 PO 12/15/16 06:00 12/17/16 05:39 (Glucophage) 1,000 mg BID PO 12/14/16 21:00 12/17/16 08:15 (Glucophage) 500 mg DAILY@12 PO 12/15/16 12:00 12/17/16 10:54 (D50w (Vial) Inj) 25 ml UNSCH PRN IV PUSH 12/14/16 16:45 (Glucagon Inj) 1 mg UNSCH PRN OTHER 12/14/16 16:45 ([place] 7.5-325 Mg) 1 tab Q6H PRN PO 12/14/16 17:15 12/16/16 05:32 (Lopressor) 100 mg Q8HR PO 12/15/16 14:00 12/17/16 12:59 Apixaban 5 mg 5 mg BID PO 12/15/16 21:00 12/17/16 08:15 (Zosyn 4.5 Gm Premix) 100 ml @ 200 mls/hr Q6H IV 12/16/16 17:00 12/17/16 15:44 (Prinivil) 2.5 mg DAILY PO 12/17/16 09:00 12/17/16 08:17 (Cordarone) 200 mg DAILY PO 12/17/16 09:00 12/17/16 08:17 (Amaryl) 1 mg DAILYAC PO 12/17/16 10:00 12/17/16 10:36 (Lasix Inj) 80 mg BID@09,18 IV PUSH 12/17/16 18:00 12/17/16 17:06 Physical Exam General Appearance: No Acute Distress Eyes Eye Exam: Pupils Equal, Pupils Reactive Ears & Nose Ears & Nose Exam: Tympanic Membranes Normal Throat Throat Exam: Oral Mucosa Whitmore & Moist Neck Neck Exam: Neck Supple, Trachea Midline Pulmonary Resp Exam: Clear Bilaterally, Breath Sounds Equal, Diminished Breath Sounds Cardiology CV Exam: Regular, Normal Sinus Rhythm Gastrointestinal/Abdomen GI Exam: Soft, Non-Tender Integumentary Skin Exam: Warm Extremeties Extremities Exam: Moderate Edema Extremeties Remarks Significant pitting edema present BLE up to thighs. Neurologic Neuro Exam: Alert, Awake Psychiatric Psych Exam: Appropriate Responses Assessment/Plan Problem List: (1) Acute renal insufficiency Plan: I suspect the patient has acute on chronic renal insufficiency. Acute component may be related to contrast nephrotoxicity as well as a possible component of cardiorenal syndrome. Chronic kidney disease is suspected secondary to duration of diabetes mellitus, poor control previously. SCr improving currently. Labs reviewed from [facility] from December and January 2015 for which he was seen in the ED but not admitted for same complaints was 0.7. Noted that HCV was positive. Ordered PCR for confirmation. Pt denies any known hx of hepatitis nor illicit drug use hx. Follow I&Os Check UPCR to see if any significant proteinuria Medications should be adjusted for the patient's estimated GFR if clinically indicated. Avoid agents with significant potential for nephrotoxicity possible including NSAIDs for analgesia, iodine contrast agents. Gadolinium is contraindicated if the GFR is below 30. (2) Congestive heart failure Plan: Lasix was increased by primary today to 80mg BID. Will monitor response. (3) Cardiomyopathy Plan: Deterioration in ejection fraction to 30-35% (4) Chronic respiratory failure with hypercapnia (5) HTN (hypertension) (6) Morbid obesity (7) Diabetes Plan: If the patient's renal indices continue to deteriorate I would recommend discontinuance of metformin for the present as there is a potential development of lactic acidosis in the setting of severe renal insufficiency with metformin which is potentially a serious comorbidity (8) Anemia Plan: Fe stores low. May benefit from Venofer infusion if agreeable by PCP Problem Qualifiers (1) Morbid obesity: Qualified Code: E66.01 - Morbid obesity due to excess calories (2) Diabetes: Qualified Code: E11.8 - Type 2 diabetes mellitus with complication, with long- term current use of insulin Moira Juarez Dec 17, 2016 19:24
--- NOTE | 2016-12-17 19:27 | HHI.PR ---
Subjective Remarks He is better. Still has leg edema. No chest pain.. Used Bipap. Output was good with Lasix IV Objective Vital Signs Date Time Temp Pulse Resp B/P Pulse Ox O2 Delivery O2 Flow Rate FiO2 12/17/16 18:00 102 12/17/16 17:00 104 12/17/16 16:00 91 12/17/16 16:00 98.7 58 24 139/79 93 12/17/16 15:00 90 12/17/16 14:00 74 12/17/16 13:00 126 12/17/16 12:00 98.2 52 24 141/78 95 12/17/16 12:00 106 12/17/16 11:00 92 12/17/16 10:00 92 12/17/16 09:00 92 12/17/16 08:17 93 21 12/17/16 08:00 90 12/17/16 08:00 97.9 52 22 126/62 93 12/17/16 07:00 102 12/17/16 06:00 118 12/17/16 05:00 110 12/17/16 04:00 102 12/17/16 04:00 98.0 88 21 118/74 93 12/17/16 03:00 112 12/17/16 02:00 108 12/17/16 01:00 100 12/17/16 00:00 86 12/17/16 00:00 98.0 107 21 120/74 91 12/16/16 23:00 92 12/16/16 22:00 88 12/16/16 21:00 112 12/16/16 20:00 92 12/16/16 20:00 99.2 104 20 98/62 92 12/16/16 20:00 104 I/O 12/16/16 12/16/16 12/16/16 12/17/16 12/17/16 12/17/16 07:00 15:00 23:00 07:00 15:00 23:00 Intake Total 1079 ml Output Total 400 ml Balance 679 ml Intake Oral 860 ml IV Total 219 ml Output Urine Total 400 ml # Voids 5 # Bowel Movements 1 Result Diagram: 12/17/1651012/17/16510 Objective Remarks GENERAL: This moderately obese middle-aged white male is alert, face is plethoric. HEENT: Head normocephalic. Pupils are reactive. Sclerae were injected. Tongue is moist. Throat is clear.. Nasal mucosa edematous. NECK: Supple. No bruits or thyroid enlargement. CHEST: Equal movements with occasional wheezes bilaterally with prolonged expirations and crackles scattered. CARDIAC: Heart sounds with irregular, S1-S2. No murmur. ABDOMEN: Soft, benign. No masses or organomegaly or tenderness. Bowel sounds are active. EXTREMITIES: Edema 2+ with pigmentation of the skin of the lower extremities. Reflexes are 1+. He does move all his extremities and there is no gross motor deficits. Cranial nerves grossly intact. RECTAL: Exam is deferred. Assessment and Plan Assessment and Plan IMPRESSION 1. Chronic respiratory failure. 2. Acute exacerbation of chronic bronchitis. 3. Bibasilar pulmonary infiltrates, probable pulmonary edema with atelectasis. 4. Diabetes mellitus. 5. Hypertension. Plan : 1. Nebs qid , duoneb. 2. Cont Lasix 80 mg IV bid. 3. O2 at 3 L. 4. Bipap at HS 15/5 cm, Fio2 30 %. 5. Cont Antibiotics as ordered. 6. BMP,PFT in Nieves Meyer MD Dec 17, 2016 19:27
[2016-12-17 22:02] LABS: TOTAL PROTEIN SPE 7.1 GM/DL (6.0-7.6)
[2016-12-18] VITALS (16 sets, daily range): BP systolic 108–137; BP diastolic 49–89; PULSE 51–114; RESP 14–22; TEMP 97.8–98.6; O2SAT 91–96
[2016-12-18] MEDS: PIPERACIL-TAZO 4.5 GM PREMIX 100 ML IV SCH ×4 (05:00→22:21)
[2016-12-18] MEDS: LEVOTHYROXINE SODIUM 75 MCG TAB PO SCH (05:22)
[2016-12-18] MEDS: METOPROLOL TARTRATE 100 MG TAB PO SCH ×3 (05:23→20:34)
--- NOTE | 2016-12-18 06:57 | RADRPT ---
EXAM DATE/TIME: 12/18/2016 05:39 [facility] COMPARISON: CHEST SINGLE AP, December 16, 2016, 3:04. INDICATIONS : Shortness of breath. MEDICAL HISTORY : Diabetes mellitus type II. SURGICAL HISTORY : None. ENCOUNTER: Subsequent ACUITY: 4 - 6 days PAIN SCORE: 0/10 LOCATION: chest FINDINGS: The cardiac silhouette is enlarged in transverse diameter. The lungs are free of acute parenchymal op acity. No effusions are identified. Osseous structures are intact.CONCLUSION: Cardiomegaly. No ac krishan cardiopulmonary disease. Garrett Pickard MD on December 18, 2016 at 6:55 Board Certified Radiologist. This report was verified electronically.
[2016-12-18] MEDS: INSULIN ASPART SUPPLEMENTAL SCALE SQ SCH ×4 (07:00→20:35)
--- NOTE | 2016-12-18 07:47 | PD.CARD.PN ---
Subjective Subjective Remarks heart rate better controlled Objective Vital Signs / I&O Vital Signs Date Time Temp Pulse Resp B/P Pulse Ox O2 Delivery O2 Flow Rate FiO2 12/17/16 23:40 92 Nasal Cannula 12/17/16 18:00 102 12/17/16 17:00 104 12/17/16 16:00 91 12/17/16 16:00 98.7 58 24 139/79 93 12/17/16 15:00 90 12/17/16 14:00 74 12/17/16 13:00 126 12/17/16 12:00 98.2 52 24 141/78 95 12/17/16 12:00 106 12/17/16 11:00 92 12/17/16 10:00 92 12/17/16 09:00 92 12/17/16 08:17 93 21 12/17/16 08:00 90 12/17/16 08:00 97.9 52 22 126/62 93 I/O 12/17/16 12/17/16 12/17/16 12/18/16 12/18/16 12/18/16 07:00 15:00 23:00 07:00 15:00 23:00 Intake Total 1079 ml Output Total 400 ml Balance 679 ml Intake Oral 860 ml IV Total 219 ml Output Urine Total 400 ml # Voids 5 # Bowel Movements 1 Physical Exam GENERAL: Well-nourished, well-developed patient in no apparent distress. NECK: No JVD. No carotid bruit. CARDIOVASCULAR: IR IR. S1/S2 no murmur, rub, or gallop. RESPIRATORY: No accessory muscle use. Clear to auscultation. Breath sounds equal bilaterally. GASTROINTESTINAL: Abdomen soft, non-tender, nondistended. MUSCULOSKELETAL: Extremities without clubbing, cyanosis, or edema. Laboratory Laboratory Tests Test 12/17/16 21:05 Total Protein 7.1 GM/DL Assessment and Plan Problem List: (1) Cardiomyopathy (2) HTN (hypertension) (3) Atrial flutter with rapid ventricular response Assessment and Plan AF - heart rate better controlled on digoxin, Plan for DCC after 2 to 3 weeks of anticoagulation cardiomyopathy - continue lisinopril 2.5 mg daily. It is likely that his LV dysfunction is related to tachycardia mediates cardiomyopathy Rory Moore Dec 18, 2016 07:47
[2016-12-18 07:52] LABS: AUTOMATED NEUTROPHIL # 7.5 TH/MM3 (1.8-7.7); BASOPHIL % 0.5 % (0.0-2.0); EOSINOPHIL # 0.2 TH/MM3 (0-0.4); EOSINOPHIL % 2.3 % (0.0-4.0); HEMATOCRIT 32.1 % (39.0-51.0); HEMO FLAGS DIFF FINAL; LYMPH % 12.7 % (9.0-44.0); LYMPHOCYTE # 1.3 TH/MM3 (1.0-4.8); MEAN CELL VOLUME 82.1 FL (80.0-100.0); MEAN CORPUSCULAR HEMOGLOBIN 25.7 PG (27.0-34.0); MEAN CORPUSCULAR HGB CONC 31.3 % (32.0-36.0); MONO % 9.6 % (0.0-8.0); NEUT % 74.9 % (16.0-70.0); PLATELET COUNT 276 TH/MM3 (150-450); RED BLOOD COUNT 3.91 MIL/MM3 (4.50-5.90); RED CELL DISTRIBUTION WIDTH 16.8 % (11.6-17.2); WHITE BLOOD COUNT 9.9 TH/MM3 (4.0-11.0)
[2016-12-18 08:32] LABS: BICARBONATE 31.8 MEQ/L (21.0-32.0); DIGOXIN 0.5 NG/ML (0.8-2.0); MAGNESIUM 2.1 MG/DL (1.5-2.5); POTASSIUM 3.5 MEQ/L (3.5-5.1)
[2016-12-18 08:47] LABS: BACTERIA, URINE RARE /hpf; BLOOD, URINE NEG (NEG); COMMENT (UR) CULT NOT INDICATED; CULTURE IF INDICATED CULT NOT INDICATED; GLUCOSE,URINE NEG (NEG); KETONE, URINE NEG (NEG); NITRITE,URINE NEG (NEG); PH, URINE 5.5 (5.0-8.5); SQUAMOUS EPITHELIAL CELL URINE <1 /hpf (0-5); URIC ACID CRYSTALS, URINE MOD /hpf; URINE COLOR YELLOW (YELLW/STRAW)
[2016-12-18] MEDS: ASPIRIN 81 MG CHEW TAB CHEW SCH (08:51)
[2016-12-18] MEDS: AMIODARONE 200 MG TAB PO SCH (08:51)
[2016-12-18] MEDS: APIXABAN 5 MG TABLET PO SCH ×2 (08:51→20:34)
[2016-12-18] MEDS: LISINOPRIL 5 MG TAB PO SCH (08:51)
[2016-12-18] MEDS: metFORMIN HCL 500 MG TAB PO SCH ×3 (08:51→20:35)
[2016-12-18] MEDS: GLIMEPIRIDE 1 MG TAB PO SCH (08:51)
[2016-12-18] MEDS: SODIUM CHLORIDE 0.9% FLUSH 5 ML FLUSH FLUSH SCH ×2 (08:52→20:35)
[2016-12-18] MEDS: CHOLECALCIFEROL (VIT D3) 1000 UNIT TAB PO SCH (08:52)
[2016-12-18] MEDS: FUROSEMIDE 100 MG/10 ML VIAL IV PUSH SCH ×2 (08:52→17:53)
[2016-12-18 08:55] LABS: URINE TOTAL PROTEIN TIMED 40.7 MG/DL
[2016-12-18] MEDS ORDERED: DIGOXIN 0.25 MG TAB PO SCH (10:45)
--- NOTE | 2016-12-18 10:46 | HHI.PR ---
Subjective Remarks legs less red, but still quite swollen. Pt was unable to tolerate BiPaP last night. Objective Vitals Vital Signs Date Time Temp Pulse Resp B/P Pulse Ox O2 Delivery O2 Flow Rate FiO2 12/18/16 08:25 92 Nasal Cannula 3.00 12/18/16 08:15 59 12/18/16 08:15 97.8 58 22 137/89 95 12/18/16 06:00 106 12/18/16 05:00 108 12/18/16 04:00 98.2 51 14 108/49 96 12/18/16 04:00 92 12/18/16 03:00 101 12/18/16 02:00 98 12/18/16 01:00 92 12/18/16 00:00 98.0 83 14 137/67 91 12/18/16 00:00 94 12/17/16 23:40 92 Nasal Cannula 12/17/16 23:00 108 12/17/16 22:00 140 12/17/16 21:00 112 12/17/16 20:00 108 12/17/16 20:00 98.2 104 14 105/70 95 12/17/16 19:00 108 12/17/16 18:00 102 12/17/16 17:00 104 12/17/16 16:00 91 12/17/16 16:00 98.7 58 24 139/79 93 12/17/16 15:00 90 12/17/16 14:00 74 12/17/16 13:00 126 12/17/16 12:00 98.2 52 24 141/78 95 12/17/16 12:00 106 12/17/16 11:00 92 12/17/16 12/17/16 12/18/16 15:00 23:00 07:00 Intake Total 1079 ml 800 ml Output Total 400 ml 1300 ml Balance 679 ml -500 ml Intake Oral 860 ml 600 ml IV Total 219 ml 200 ml Output Urine Total 400 ml 1300 ml # Voids 5 # Bowel Movements 1 1 Result Diagram: 12/18/1664012/18/16640 Imaging Last Impressions Chest X-Ray 12/18/16 06 Signed Impressions: Service Date/Time: Sunday, December 18, 2016 05:39 - CONCLUSION: Cardiomegaly. No acute cardiopulmonary disease. Garrett Pickard MD Renal Ultrasound 12/16/16 0000 Signed Impressions: Service Date/Time: Friday, December 16, 2016 16:23 - CONCLUSION: No acute disease. Rogerio Wayne MD CT Angiography 12/14/16 1449 Signed Impressions: Service Date/Time: Wednesday, December 14, 2016 15:43 - CONCLUSION: 1. No pulmonary embolus is identified. 2. 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 3. There are some small subcarinal and pretracheal nodes. There is a node in the pretracheal goldie chain measuring 2.5 x 1.[address] scan in 6 months to ensure stability would be warranted. Marin Appiah MD Lower Extremity Ultrasound 12/14/16 0000 Signed Impressions: Service Date/Time: Wednesday, December 14, 2016 12:18 - CONCLUSION: 1. Diffuse soft tissue swelling. 2. Unable to compress the mid and distal portions of the superficial femoral vein due to regional soft tissue swelling and discomfort. No echogenic clot and normal Doppler flow identified, however. No sonographic or Doppler findings of deep venous thrombosis. Tony Roach MD Objective Remarks GENERAL: This is a well-nourished, well-developed patient, in no apparent distress. CARDIOVASCULAR: Regular rate and rhythm without murmurs, gallops, or rubs. RESPIRATORY: Clear to auscultation. Breath sounds equal bilaterally. No wheezes , rales, or rhonchi. GASTROINTESTINAL: Abdomen soft, non-tender, nondistended. Normal active bowel sounds MUSCULOSKELETAL: Extremities without clubbing, cyanosis, or edema. NEURO: Alert & Oriented x4 to person, place, time, situation. Moves all ext x4 A/P Problem List: (1) Cellulitis of right leg Status: Acute Plan: - Pt with several days of worsening RLE edema, erythema, pain and subjective fevers/chills. - Pt admitted under SIRS sepsis criteria with tachycardia, leukocytosis (16,000) - Pt was given a dose of IV Zosyn in the ER and 4L of IVF - Pt has reportedly been homeless for a couple of weeks and has been staying in a car or staying at [facility] (12/14) --> Diffuse soft tissue swelling. Unable to compress the mid and distal portions of the superficial femoral vein due to regional soft tissue swelling and discomfort. No echogenic clot and normal Doppler flow identified, however. No sonographic or Doppler findings of deep venous thrombosis. - CTA (12/14) --> No pulmonary embolus is identified. Patchy areas of ground- glass infiltrate throughout predominantly the lower lobes most suggestive of an extrinsic allergic alveolitis. There are some small subcarinal and pretracheal nodes. There is a node in the pretracheal goldie chain measuring 2.5 x 1.[address] scan in 6 months to ensure stability would be warranted. - Cont. IV Zosyn 12/14, (12/16 - present), will probably stop in next 1-2 days - IV lasix, KCL - eliquis - significant LE edema - lasix to 80mg IV BID, observe creatinine - trial of Zaroxolyn, start at 2.5mg daily (2) Acute renal insufficiency Status: Acute Plan: - now improving - Cogmt with Nephrology, appreciate input from Dr. Reilly - likely d/t IV diuresis, underlying CKD, and possibly contrast nephropathy with recent CTA (12/14/16) - increase IV lasix to 80mg BID, observe - repeat BMP in AM - US Kidneys, ureters, bladder (12/16/16) --> NO acute findings - pt states prior h/o nephrolithiasis - iron deficiency, IV Venofer (3) Atrial flutter with rapid ventricular response Status: Acute Plan: - comgmt with Cardiology - Case d/w Dr. Goff (12/15/16) - metoprolol to 100mg TID - amiodarone 200mg daily - digoxin - digoxin level (12/18/16) 0.5 (4) Chronic respiratory failure with hypercapnia Status: Acute Plan: - comgmt with Dr. Nicholas, Pulm Medicine - start Bipap at night /6 at 28%FiO2 - duonebs - PFTs (5) Alveolitis, allergic (extrinsic) Status: Acute Plan: - CTA chest (12/13/16) 1. No pulmonary embolus is identified. 2. 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 3. There are some small subcarinal and pretracheal nodes. There is a node in the pretracheal goldie chain measuring 2.5 x 1.[address] scan in 6 months to ensure stability would be warranted - requiring 3L NC - Pt works at [employer] [facility] (6) Diabetes Status: Chronic Plan: - currently stable - Poorly controlled - Hgb A1C 9.7% in 11/2016 - Metformin 1000mg BID and 500mg at noon - NovoLog SSI - resume Amaryl at 1mg BID - Accu checks (7) HTN (hypertension) Status: Chronic Plan: - Pt normally takes Enalapril 20mg po BID and Norvasc 10mg po daily. - Hold home BP meds - metoprolol 100mg TID - lisinopril 2.5mg daily (started 12/17/16) (8) Diastolic dysfunction Status: Chronic Plan: - Last 2D echo in 2014 noted diastolic dysfunction - See above. (9) Chronic edema Status: Chronic Plan: - See above. (10) Hypothyroidism Status: Chronic Plan: - Cont. home meds (11) Tobacco abuse Status: Chronic Plan: - Discussed tobacco cessation - Offered the pt a Nicotine patch which he declined for now. (12) Morbid obesity Status: Acute Plan: - after discharge, pt will need to work on weight loss - recommend f/u with [facility] floor covering printer after discharge (13) TRE (obstructive sleep apnea) Status: Acute Plan: - strongly suspect that pt has undiagnosed TRE based on history of wake time somnolence and body habitus - pt will need outpt sleep study for TRE after discharge Problem Qualifiers (1) Diabetes: Qualified Code: E11.8 - Type 2 diabetes mellitus with complication, with long- term current use of insulin (2) Morbid obesity: Qualified Code: E66.01 - Morbid obesity due to excess calories Juan Davidson DO Dec 18, 2016 10:46
[2016-12-18] MEDS ORDERED: DIGOXIN 0.25 MG TAB PO ONE (11:00)
[2016-12-18] MEDS: METOLAZONE 2.5 MG TAB PO SCH (11:00)
[2016-12-18] MEDS ORDERED: IRON SUCROSE 100 MG/5 ML VIAL IV PUSH ONE (12:00)
--- NOTE | 2016-12-18 17:36 | HHI.NPPN ---
Subjective History of Present Illness This patient is a 51-year-old male with a history of long-standing diabetes mellitus apparently poorly controlled, hypertension who denies any previous knowledge of renal disease including proteinuria who was admitted after presenting with increasing lower extremity edema, atrial flutter with rapid ventricular rate. Also being treated for cellulitis lower extremity. On presentation creatinine level was 1.31. Current baseline level prior to this admission unknown. Subsequent evaluation is indicated that his ejection fraction which was previously said to be 55% has deteriorated to 30-35%. Patient is currently being diuresed for fluid retention and pulmonary congestion. It is noted that patient had a CTA performed on the of this month. Interval History Pt sitting up in chair. 2 daughters present in room. States he is feeling much better today. (Moira Juarez) Objective Data Data 12/17/16 12/18/16 19:00 07:00 Intake Total 1079 ml 800 ml Output Total 400 ml 1300 ml Balance 679 ml -500 ml Intake Oral 860 ml 600 ml IV Total 219 ml 200 ml Output Urine Total 400 ml 1300 ml # Voids 5 # Bowel Movements 1 1 Vital Signs Date Time Temp Pulse Resp B/P Pulse Ox O2 Delivery O2 Flow Rate FiO2 12/18/16 16:44 90 12/18/16 16:44 98.2 98 20 119/77 94 12/18/16 12:27 98.0 96 20 125/66 94 12/18/16 12:27 98 12/18/16 08:25 92 Nasal Cannula 3.00 12/18/16 08:15 59 12/18/16 08:15 97.8 58 22 137/89 95 12/18/16 06:00 106 12/18/16 05:00 108 12/18/16 04:00 98.2 51 14 108/49 96 12/18/16 04:00 92 12/18/16 03:00 101 12/18/16 02:00 98 12/18/16 01:00 92 12/18/16 00:00 98.0 83 14 137/67 91 12/18/16 00:00 94 12/17/16 23:40 92 Nasal Cannula 12/17/16 23:00 108 12/17/16 22:00 140 12/17/16 21:00 112 12/17/16 20:00 108 12/17/16 20:00 98.2 104 14 105/70 95 12/17/16 19:00 108 12/17/16 18:00 102 (Moira Juarez) -: 12/18/16 0641 12/18/16 0641 Medication Review Current Medications Medications (Trade) Dose Ordered Sig/Kennedy Route Start Time Stop Time Status Last Admin (NS Flush) 2 ml UNSCH PRN FLUSH 12/14/16 16:30 (NS Flush) 2 ml BID FLUSH 12/14/16 21:00 12/18/16 08:52 (Tylenol) 650 mg Q4H PRN PO 12/14/16 16:30 (Zofran Inj) 4 mg Q6H PRN IVP 12/14/16 16:30 (Dulcolax Supp) 10 mg DAILY PRN [place] 12/14/16 16:30 (Milk Of Magnesia Liq) 30 ml Q12H PRN PO 12/14/16 16:30 (Narcan Inj) 0.4 mg UNSCH PRN IV 12/14/16 16:30 (Aspirin Chew) 81 mg DAILY CHEW 12/15/16 09:00 12/18/16 08:51 (Vitamin D3) 1,000 units DAILY PO 12/15/16 09:00 12/18/16 08:52 (Synthroid) 75 mcg DAILY@06 PO 12/15/16 06:00 12/18/16 05:22 (Glucophage) 1,000 mg BID PO 12/14/16 21:00 12/18/16 08:51 (Glucophage) 500 mg DAILY@12 PO 12/15/16 12:00 12/18/16 11:20 (D50w (Vial) Inj) 25 ml UNSCH PRN IV PUSH 12/14/16 16:45 (Glucagon Inj) 1 mg UNSCH PRN OTHER 12/14/16 16:45 ([place] 7.5-325 Mg) 1 tab Q6H PRN PO 12/14/16 17:15 12/16/16 05:32 (Lopressor) 100 mg Q8HR PO 12/15/16 14:00 12/18/16 13:59 Apixaban 5 mg 5 mg BID PO 12/15/16 21:00 12/18/16 08:51 (Zosyn 4.5 Gm Premix) 100 ml @ 200 mls/hr Q6H IV 12/16/16 17:00 12/18/16 16:59 (Prinivil) 2.5 mg DAILY PO 12/17/16 09:00 12/18/16 08:51 (Cordarone) 200 mg DAILY PO 12/17/16 09:00 12/18/16 08:51 (Amaryl) 1 mg DAILYAC PO 12/17/16 10:00 12/18/16 08:51 (Lasix Inj) 80 mg BID@,18 IV PUSH 12/17/16 18:00 12/18/16 08:52 (Lanoxin) 0.25 mg DAILY PO 12/19/16 09:00 (Zaroxolyn) 2.5 mg DAILY PO 12/18/16 11:00 12/18/16 11:00 (Moira Juarez) Physical Exam General Appearance: No Acute Distress (Moira Juarez) Eyes Eye Exam: Pupils Equal, Pupils Reactive (Moira Juarez) Ears & Nose Ears & Nose Exam: Tympanic Membranes Normal (Moira Juarez) Throat Throat Exam: Oral Mucosa Zwingle & Moist (Moira Juarez) Neck Neck Exam: Neck Supple, Trachea Midline (Moira Juarez) Pulmonary Resp Exam: Clear Bilaterally, Breath Sounds Equal, Diminished Breath Sounds ( Moira Juarez) Cardiology CV Exam: Regular, Normal Sinus Rhythm (Moira Juarez) Gastrointestinal/Abdomen GI Exam: Soft, Non-Tender (Moira Juarez) Integumentary Skin Exam: Warm (Moira Juarez) Extremeties Extremities Exam: Moderate Edema Extremeties Remarks Significant pitting edema present BLE up to thighs. Does look better than 12/17 ( Moira Juarez) Neurologic Neuro Exam: Alert, Awake (Moira Juarez) Psychiatric Psych Exam: Appropriate Responses (Moira Juarez) Assessment/Plan Problem List: (1) Acute renal insufficiency Plan: I suspect the patient has acute on chronic renal insufficiency. Acute component may be related to contrast nephrotoxicity as well as a possible component of cardiorenal syndrome. Chronic kidney disease is suspected secondary to duration of diabetes mellitus, poor control previously. SCr improving currently. Labs reviewed from [facility] from December and January 2015 for which he was seen in the ED but not admitted for same complaints was 0.7. HCV PCR pending. UPCr shows minimal proteinuria. Other serology pending. Medications should be adjusted for the patient's estimated GFR if clinically indicated. Avoid agents with significant potential for nephrotoxicity possible including NSAIDs for analgesia, iodine contrast agents. Gadolinium is contraindicated if the GFR is below 30. (2) Congestive heart failure Plan: Has responded to increase of Lasix. Noted Metolazone was added my primary. Continue to trend renal functions. (3) Cardiomyopathy Plan: Deterioration in ejection fraction to 30-35% (4) Chronic respiratory failure with hypercapnia (5) HTN (hypertension) (6) Morbid obesity (7) Diabetes Plan: If the patient's renal indices continue to deteriorate I would recommend discontinuance of metformin for the present as there is a potential development of lactic acidosis in the setting of severe renal insufficiency with metformin which is potentially a serious comorbidity (8) Anemia Plan: s/p Venofer today. (Moira Juarez) Plan The exam, history, and the medical decision-making described in the above note were completed with the assistance of the PA-C. I reviewed and agree with the findings presented. I attest that I had a [id number] encounter with the patient on the same day, and personally performed and documented my assessment and findings in the medical record. (Delia Reilly MD) Problem Qualifiers (1) Cardiomyopathy: Qualified Code: I42.9 - Cardiomyopathy, unspecified type (2) HTN (hypertension): Qualified Code: I10 - Essential hypertension (3) Morbid obesity: Qualified Code: E66.01 - Morbid obesity due to excess calories (4) Diabetes: Qualified Code: E11.8 - Type 2 diabetes mellitus with complication, with long- term current use of insulin Moira Juarez Dec 18, 2016 17:36 Delia Reilly MD Jan 11, 2017 10:19
[2016-12-19] VITALS (23 sets, daily range): BP systolic 96–144; BP diastolic 56–76; PULSE 79–122; RESP 18–22; TEMP 97.9–99; O2SAT 92–95
[2016-12-19 03:50] LABS: KAPPA/LAMBDA FREE 2.28 (0.26-1.65)
[2016-12-19] MEDS: PIPERACIL-TAZO 4.5 GM PREMIX 100 ML IV SCH ×4 (04:06→21:51)
[2016-12-19] MEDS: LEVOTHYROXINE SODIUM 75 MCG TAB PO SCH (05:49)
[2016-12-19] MEDS: METOPROLOL TARTRATE 100 MG TAB PO SCH ×3 (05:49→21:50)
[2016-12-19] MEDS: INSULIN ASPART SUPPLEMENTAL SCALE SQ SCH ×4 (06:24→20:08)
[2016-12-19 08:24] LABS: BICARBONATE 38.5 MEQ/L (21.0-32.0); POTASSIUM 3.8 MEQ/L (3.5-5.1)
[2016-12-19 08:38] LABS: DIGOXIN 0.7 NG/ML (0.8-2.0)
[2016-12-19] MEDS: FUROSEMIDE 100 MG/10 ML VIAL IV PUSH SCH ×2 (09:33→17:37)
[2016-12-19] MEDS: LISINOPRIL 5 MG TAB PO SCH (09:33)
[2016-12-19] MEDS: CHOLECALCIFEROL (VIT D3) 1000 UNIT TAB PO SCH (09:34)
[2016-12-19] MEDS: GLIMEPIRIDE 1 MG TAB PO SCH (09:34)
[2016-12-19] MEDS: ASPIRIN 81 MG CHEW TAB CHEW SCH (09:34)
[2016-12-19] MEDS: metFORMIN HCL 500 MG TAB PO SCH ×3 (09:34→20:07)
[2016-12-19] MEDS: APIXABAN 5 MG TABLET PO SCH ×2 (09:34→20:06)
[2016-12-19] MEDS: METOLAZONE 2.5 MG TAB PO SCH (09:34)
[2016-12-19] MEDS: AMIODARONE 200 MG TAB PO SCH (09:34)
[2016-12-19] MEDS: SODIUM CHLORIDE 0.9% FLUSH 5 ML FLUSH FLUSH SCH ×2 (09:35→20:07)
[2016-12-19] MEDS: DIGOXIN 0.25 MG TAB PO SCH (09:35)
--- NOTE | 2016-12-19 12:14 | HHI.PR ---
Subjective Remarks No new complaints. Objective Vitals Vital Signs Date Time Temp Pulse Resp B/P Pulse Ox O2 Delivery O2 Flow Rate FiO2 12/19/16 08:00 89 12/19/16 07:00 98.1 83 18 115/72 94 12/19/16 07:00 91 12/19/16 07:00 94 Nasal Cannula 2.00 12/19/16 06:00 92 12/19/16 05:00 91 12/19/16 04:00 Nasal Cannula 2.00 12/19/16 04:00 98.1 96 22 144/66 94 12/19/16 04:00 96 12/19/16 03:00 94 12/19/16 02:00 90 12/19/16 01:00 94 12/19/16 00:00 90 12/19/16 00:00 98.7 79 22 96/56 95 12/19/16 00:00 Nasal Cannula 2.00 12/18/16 23:00 92 12/18/16 22:04 94 21 12/18/16 22:00 85 12/18/16 21:00 114 12/18/16 20:00 91 12/18/16 20:00 98.6 91 22 133/82 93 12/18/16 16:44 90 12/18/16 16:44 98.2 98 20 119/77 94 12/18/16 12:27 98.0 96 20 125/66 94 12/18/16 12:27 98 12/18/16 12/18/16 12/19/16 15:00 23:00 07:00 Intake Total 1250 ml 680 ml Output Total 1750 ml 1500 ml Balance -500 ml -820 ml Intake Oral 1250 ml 480 ml IV Total 200 ml Output Urine Total 1750 ml 1500 ml # Bowel Movements 1 0 Result Diagram: 12/18/16 0641 12/19/16 0705 Imaging Last Impressions Chest X-Ray 12/18/16 0600 Signed Impressions: Service Date/Time: Sunday, December 18, 2016 05:39 - CONCLUSION: Cardiomegaly. No acute cardiopulmonary disease. Garrett Pickard MD Renal Ultrasound 12/16/16 0000 Signed Impressions: Service Date/Time: Friday, December 16, 2016 16:23 - CONCLUSION: No acute disease. Rogerio Wayne MD CT Angiography 12/14/16 1449 Signed Impressions: Service Date/Time: Wednesday, December 14, 2016 15:43 - CONCLUSION: 1. No pulmonary embolus is identified. 2. 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 3. There are some small subcarinal and pretracheal nodes. There is a node in the pretracheal goldie chain measuring 2.5 x 1.[address] scan in 6 months to ensure stability would be warranted. Marin Appiah MD Lower Extremity Ultrasound 12/14/16 0000 Signed Impressions: Service Date/Time: Wednesday, December 14, 2016 12:18 - CONCLUSION: 1. Diffuse soft tissue swelling. 2. Unable to compress the mid and distal portions of the superficial femoral vein due to regional soft tissue swelling and discomfort. No echogenic clot and normal Doppler flow identified, however. No sonographic or Doppler findings of deep venous thrombosis. Tony Roach MD Objective Remarks GENERAL: This is a well-nourished, well-developed patient, in no apparent distress. CARDIOVASCULAR: Regular rate and rhythm without murmurs, gallops, or rubs. RESPIRATORY: Clear to auscultation. Breath sounds equal bilaterally. No wheezes , rales, or rhonchi. GASTROINTESTINAL: Abdomen soft, non-tender, nondistended. Normal active bowel sounds MUSCULOSKELETAL: Extremities without clubbing, cyanosis, or edema. NEURO: Alert & Oriented x4 to person, place, time, situation. Moves all ext x4 A/P Problem List: (1) Cellulitis of right leg Status: Acute Plan: - Pt with several days of worsening RLE edema, erythema, pain and subjective fevers/chills. - Pt admitted under SIRS sepsis criteria with tachycardia, leukocytosis (16,000) - Pt was given a dose of IV Zosyn in the ER and 4L of IVF - Pt has reportedly been homeless for a couple of weeks and has been staying in a car or staying at [facility] (12/14) --> Diffuse soft tissue swelling. Unable to compress the mid and distal portions of the superficial femoral vein due to regional soft tissue swelling and discomfort. No echogenic clot and normal Doppler flow identified, however. No sonographic or Doppler findings of deep venous thrombosis. - CTA (12/14) --> No pulmonary embolus is identified. Patchy areas of ground- glass infiltrate throughout predominantly the lower lobes most suggestive of an extrinsic allergic alveolitis. There are some small subcarinal and pretracheal nodes. There is a node in the pretracheal goldie chain measuring 2.5 x 1.[address] scan in 6 months to ensure stability would be warranted. - Cont. IV Zosyn 12/14, (12/16 - present), will probably stop in next 1-2 days - IV lasix, KCL - eliquis - significant LE edema - lasix to 80mg IV BID, observe creatinine - trial of Zaroxolyn, start at 2.5mg daily 12/19/16 - continue treatment plan as outlined above - increase zaroxolyn to 5mg daily - repeat BMP, Mag in AM (2) Acute renal insufficiency Status: Acute Plan: - now improving - Cogmt with Nephrology, appreciate input from Dr. Reilly - likely d/t IV diuresis, underlying CKD, and possibly contrast nephropathy with recent CTA (12/14/16) - IV lasix 80mg BID, observe - zaroxolyn - US Kidneys, ureters, bladder (12/16/16) --> NO acute findings - pt states prior h/o nephrolithiasis - iron deficiency, IV Venofer (12/18/16) (3) Atrial flutter with rapid ventricular response Status: Acute Plan: - comgmt with Cardiology - Case d/w Dr. Goff (12/15/16) - metoprolol to 100mg TID - amiodarone 200mg daily - digoxin 0.25mg daily - digoxin level (12/19/16) 0.6 - will give additional dose of digoxin 0.25mg once - repeat digoxin level in AM - Telemetry: Atrial flutter, HR 90-110 with occasional spikes up into the 130s (4) Chronic respiratory failure with hypercapnia Status: Acute Plan: - comgmt with Dr. Nicholas, Pulm Medicine - start Bipap at night 14/6 at 28%FiO2 - duonebs - PFTs (5) Alveolitis, allergic (extrinsic) Status: Acute Plan: - CTA chest (12/13/16) 1. No pulmonary embolus is identified. 2. 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 3. There are some small subcarinal and pretracheal nodes. There is a node in the pretracheal goldie chain measuring 2.5 x 1.[address] scan in 6 months to ensure stability would be warranted - requiring 3L NC - Pt works at [employer] (6) Diabetes Status: Chronic Plan: - currently stable - Poorly controlled - Hgb A1C 9.7% in 11/2016 - Metformin 1000mg BID and 500mg at noon - NovoLog SSI - resume Amaryl at 1mg BID - Accu checks (7) HTN (hypertension) Status: Chronic Plan: - Pt normally takes Enalapril 20mg po BID and Norvasc 10mg po daily. - Hold home BP meds - metoprolol 100mg TID - lisinopril 2.5mg daily (started 12/17/16) (8) Diastolic dysfunction Status: Chronic Plan: - Last 2D echo in 2014 noted diastolic dysfunction - See above. (9) Chronic edema Status: Chronic Plan: - See above. (10) Hypothyroidism Status: Chronic Plan: - Cont. home meds (11) Tobacco abuse Status: Chronic Plan: - Discussed tobacco cessation - Offered the pt a Nicotine patch which he declined for now. 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
[2016-12-19] MEDS ORDERED: DIGOXIN 0.25 MG TAB PO ONE (12:30)
[2016-12-19] MEDS ORDERED: METOLAZONE 2.5 MG TAB PO ONE (12:30)
--- NOTE | 2016-12-19 15:52 | HHI.NPPN ---
Subjective History of Present Illness This patient is a 51-year-old male with a history of long-standing diabetes mellitus apparently poorly controlled, hypertension who denies any previous knowledge of renal disease including proteinuria who was admitted after presenting with increasing lower extremity edema, atrial flutter with rapid ventricular rate. Also being treated for cellulitis lower extremity. On presentation creatinine level was 1.31. Current baseline level prior to this admission unknown. Subsequent evaluation is indicated that his ejection fraction which was previously said to be 55% has deteriorated to 30-35%. Patient is currently being diuresed for fluid retention and pulmonary congestion. It is noted that patient had a CTA performed on the of this month. Interval History Patient denied respiratory distress. No verbal complaints currently. Objective Data Data 12/18/16 12/19/16 19:00 07:00 Intake Total 1250 ml 680 ml Output Total 1750 ml 1500 ml Balance -500 ml -820 ml Intake Oral 1250 ml 480 ml IV Total 200 ml Output Urine Total 1750 ml 1500 ml # Bowel Movements 1 0 Vital Signs Date Time Temp Pulse Resp B/P Pulse Ox O2 Delivery O2 Flow Rate FiO2 12/19/16 08:00 89 12/19/16 07:00 98.1 83 18 115/72 94 12/19/16 07:00 91 12/19/16 07:00 94 Nasal Cannula 2.00 12/19/16 06:00 92 12/19/16 05:00 91 12/19/16 04:00 Nasal Cannula 2.00 12/19/16 04:00 98.1 96 22 144/66 94 12/19/16 04:00 96 12/19/16 03:00 94 12/19/16 02:00 90 12/19/16 01:00 94 12/19/16 00:00 90 12/19/16 00:00 98.7 79 22 96/56 95 12/19/16 00:00 Nasal Cannula 2.00 12/18/16 23:00 92 12/18/16 22:04 94 21 12/18/16 22:00 85 12/18/16 21:00 114 12/18/16 20:00 91 12/18/16 20:00 98.6 91 22 133/82 93 12/18/16 16:44 90 12/18/16 16:44 98.2 98 20 119/77 94 -: 12/18/16 0641 12/19/16 0705 Medication Review Current Medications Diltiazem HCl (Cardizem Inj) 25 mg STK-MED ONCE .ROUTE ; Start 12/14/16 at 14:47 ; Stop 12/14/16 at 14:48; Status DC Diltiazem HCl (Cardizem Inj) 48 mg BOLUS ONCE IV PUSH Last administered on 14:57; Start 12/14/16 at 15:00; Stop 12/14/16 at 15:01; Status DC IV Flush 2 ml 2 ml UNSCH PRN IVF FLUSH AFTER USING IV ACCESS; Start 12/14/16 at 15:00; Stop 12/14/16 at 16:35; Status DC Piperacillin Sod/ Tazobactam Sod 100 ml @ 200 mls/hr ONCE STAT IV Last administered on 12/14/16 15:36; Start 12/14/16 at 15:11; Stop 12/14/16 at 15:40 ; Status DC Sodium Chloride 1,000 ml @ 1,000 mls/hr Q1H ONCE IV Last administered on 15:36; Start 12/14/16 at 15:11; Stop 12/14/16 at 16:10; Status DC Sodium Chloride 1,000 ml @ 1,000 mls/hr Q1H ONCE IV Last administered on 16:27; Start 12/14/16 at 15:11; Stop 12/14/16 at 16:10; Status DC Sodium Chloride 1,000 ml @ 1,000 mls/hr Q1H ONCE IV Last administered on 16:27; Start 12/14/16 at 15:11; Stop 12/14/16 at 16:10; Status DC Sodium Chloride (NS 1000 ml Inj) 900 ml @ 1,000 mls/hr Q54M ONCE IV Last administered on 12/14/16 16:48; Start 12/14/16 at 15:11; Stop 12/14/16 at 16:04 ; Status DC Iohexol (Omnipaque 350 Inj) 69 ml STK-MED ONCE IV Last administered on 15:45; Start 12/14/16 at 15:45; Stop 12/14/16 at 15:46; Status DC IV Flush (NS Flush) 2 ml UNSCH PRN FLUSH FLUSH AFTER USING IV ACCESS; Start at 16:30 IV Flush (NS Flush) 2 ml BID FLUSH Last administered on 12/19/16 09:35; Start 12/14/16 at 21:00 Acetaminophen (Tylenol) 650 mg Q4H PRN PO TEMP > 100.4; Start 12/14/16 at 16:30 Ondansetron HCl (Zofran Inj) 4 mg Q6H PRN IVP NAUSEA OR VOMITING; Start at 16:30 Bisacodyl (Dulcolax Supp) 10 mg DAILY PRN GA CONSTIPATION; Start 12/14/16 at 16 :30 Magnesium Hydroxide (Milk Of Magnesia Liq) 30 ml Q12H PRN PO CONSTIPATION; Start 12/14/16 at 16:30 Enoxaparin Sodium (Lovenox Inj) 30 mg Q24H SQ Last administered on 12/14/16 16 :49; Start 12/14/16 at 17:00; Stop 12/14/16 at 22:10; Status DC Naloxone HCl (Narcan Inj) 0.4 mg UNSCH PRN IV SEE LABEL COMMENTS; Start at 16:30 Aspirin (Aspirin Chew) 81 mg DAILY CHEW Last administered on 12/19/16 09:34; Start 12/15/16 at 09:00 Cholecalciferol (Vitamin D3) 1,000 units DAILY PO Last administered on 09:34; Start 12/15/16 at 09:00 Levothyroxine Sodium (Synthroid) 75 mcg DAILY@06 PO Last administered on 05:49; Start 12/15/16 at 06:00 Metformin HCl (Glucophage) 1,000 mg BID PO Last administered on 12/19/16 09:34 ; Start 12/14/16 at 21:00 Metformin HCl (Glucophage) 500 mg DAILY@12 PO Last administered on 12/19/16 13 :28; Start 12/15/16 at 12:00 Insulin Aspart (NovoLOG SUPPLEMENTAL SCALE) 1 ACHS SLIDING SCALE SQ Last administered on 12/18/16 07:00; Start 12/14/16 at 21:00 Dextrose (D50w (Vial) Inj) 25 ml UNSCH PRN IV PUSH HYPOGLYCEMIA - SEE COMMENTS ; Start 12/14/16 at 16:45 Glucagon (Glucagon Inj) 1 mg UNSCH PRN OTHER HYPOGLYCEMIA-SEE COMMENTS; Start 12/14/16 at 16:45 Furosemide (Lasix Inj) 40 mg BID@09,18 IV PUSH Last administered on 12/17/16 08:15; Start 12/14/16 at 18:00; Stop 12/17/16 at 10:26; Status DC Potassium Chloride (KCl) 10 meq ONCE ONCE PO ; Start 12/14/16 at 17:15; Stop at 17:44; Status DC Acetaminophen/ Hydrocodone Bitart ([place] 7.5-325 Mg) 1 tab Q6H PRN PO pain 2- 10 Last administered on 12/16/16 05:32; Start 12/14/16 at 17:15 Acetaminophen/ Hydrocodone Bitart 1 tab 1 tab ONCE ONCE PO Last administered on 12/14/16 17:59; Start 12/14/16 at 17:15; Stop 12/14/16 at 17:19; Status DC Diltiazem HCl/ Sodium Chloride (Cardizem Inj/NS Inj) 125 ml @ 0 mls/hr TITRATE IV Last administered on 12/14/16 20:39; Start 12/14/16 at 17:30; Stop at 22:06; Status DC Potassium Chloride (KCl) 20 meq DAILY PO ; Start 12/15/16 at 09:00; Stop at 09:00; Status DC Enoxaparin Sodium (Lovenox Inj) 100 mg Q12H SQ Last administered on 12/15/16 09:01; Start 12/14/16 at 22:00; Stop 12/15/16 at 11:53; Status DC Metoprolol Tartrate (Lopressor) 100 mg Q12H PO Last administered on 12/14/16 22:25; Start 12/14/16 at 22:00; Stop 12/15/16 at 06:59; Status DC Metoprolol Tartrate (Lopressor) 100 mg Q12HR PO Last administered on 12/15/16 09:01; Start 12/15/16 at 09:00; Stop 12/15/16 at 11:51; Status DC Metoprolol Tartrate (Lopressor) 100 mg Q8HR PO Last administered on 12/19/16 14:10; Start 12/15/16 at 14:00 Apixaban 5 mg 5 mg BID PO Last administered on 12/19/16 09:34; Start 12/15/16 at 21:00 Amiodarone HCl 900 mg/Dextrose 500 ml @ 0 mls/hr CONTINUOUS IV ; Start 12/15/16 at 13:15; Stop 12/15/16 at 13:20; Status DC Amiodarone HCl/ Dextrose (Cordarone Inj/ D5W ([place]) Inj) 250 ml @ 0 mls/hr CONTINUOUS IV Last administered on 12/15/16 23:19; Start 12/15/16 at 13:30; Stop 12/17/16 at 07:53; Status DC Digoxin (Lanoxin Inj) 0.5 mg ONCE ONCE IV PUSH Last administered on 12/16/16 08:16; Start 12/16/16 at 08:15; Stop 12/16/16 at 08:16; Status DC Digoxin (Lanoxin Inj) 0.25 mg ONCE ONCE IV PUSH Last administered on 10:00; Start 12/16/16 at 10:00; Stop 12/16/16 at 10:01; Status DC Digoxin 0.25 mg 0.25 mg ONCE ONCE IV PUSH Last administered on 12/16/16 13:22 ; Start 12/16/16 at 12:00; Stop 12/16/16 at 12:01; Status DC Piperacillin Sod/ Tazobactam Sod (Zosyn 4.5 Gm Premix) 100 ml @ 200 mls/hr Q6H IV Last administered on 12/19/16 13:28; Start 12/16/16 at 17:00 Lisinopril (Prinivil) 2.5 mg DAILY PO Last administered on 12/19/16 09:33; Start 12/17/16 at 09:00 Amiodarone HCl (Cordarone) 200 mg DAILY PO Last administered on 12/19/16 09:34 ; Start 12/17/16 at 09:00 Glimepiride (Amaryl) 1 mg DAILYAC PO Last administered on 12/19/16 09:34; Start 12/17/16 at 10:00 Furosemide (Lasix Inj) 80 mg BID@09,18 IV PUSH Last administered on 12/19/16 09:33; Start 12/17/16 at 18:00 Furosemide (Lasix Inj) 40 mg ONCE ONCE IV PUSH Last administered on 12/17/16 10:54; Start 12/17/16 at 10:30; Stop 12/17/16 at 10:50; Status DC Iron Sucrose (Venofer Inj) 200 mg ONCE ONCE IV PUSH Last administered on 12:00; Start 12/18/16 at 12:00; Stop 12/18/16 at 12:01; Status DC Digoxin (Lanoxin) 0.25 mg DAILY PO ; Start 12/18/16 at 10:45; Stop 12/18/16 at 10:50; Status DC Digoxin (Lanoxin) 0.25 mg DAILY PO Last administered on 12/19/16 09:35; Start 12/19/16 at 09:00 Digoxin (Lanoxin) 0.5 mg ONCE ONCE PO Last administered on 12/18/16 11:29; Start 12/18/16 at 11:00; Stop 12/18/16 at 11:21; Status DC Metolazone (Zaroxolyn) 2.5 mg DAILY PO Last administered on 12/19/16 09:34; Start 12/18/16 at 11:00; Stop 12/19/16 at 12:17; Status DC Metolazone (Zaroxolyn) 5 mg DAILY PO ; Start 12/20/16 at 09:00 Metolazone (Zaroxolyn) 2.5 mg ONCE ONCE PO Last administered on 12/19/16 13: 28; Start 12/19/16 at 12:30; Stop 12/19/16 at 12:37; Status DC Digoxin (Lanoxin) 0.25 mg ONCE ONCE PO Last administered on 12/19/16 13:28; Start 12/19/16 at 12:30; Stop 12/19/16 at 12:35; Status DC Physical Exam General Appearance: No Acute Distress Eyes Eye Exam: Pupils Equal, Pupils Reactive Ears & Nose Ears & Nose Exam: Tympanic Membranes Normal Throat Throat Exam: Oral Mucosa Philip & Moist Neck Neck Exam: Neck Supple, Trachea Midline Pulmonary Resp Exam: Clear Bilaterally, Breath Sounds Equal, Diminished Breath Sounds Cardiology CV Exam: Regular, Normal Sinus Rhythm Gastrointestinal/Abdomen GI Exam: Soft, Non-Tender Integumentary Skin Exam: Warm Extremeties Extremities Exam: Moderate Edema (but clinically improved.), Pitting Edema Neurologic Neuro Exam: Alert, Awake Psychiatric Psych Exam: Appropriate Responses Assessment/Plan Problem List: (1) Acute renal insufficiency Plan: I suspect the patient has acute on chronic renal insufficiency. Acute component may be related to contrast nephrotoxicity as well as a possible component of cardiorenal syndrome. Chronic kidney disease is suspected secondary to duration of diabetes mellitus, poor control previously. Patient's creatinine level appears to be improving. SCr improving currently. Labs reviewed from [facility] from December and January 2015 for which he was seen in the ED but not admitted for same complaints was 0.7. HCV PCR pending. UPCr shows minimal proteinuria. Other serology pending. Medications should be adjusted for the patient's estimated GFR if clinically indicated. Avoid agents with significant potential for nephrotoxicity possible including NSAIDs for analgesia, iodine contrast agents. Gadolinium is contraindicated if the GFR is below 30. We'll see patient intermittently. (2) Congestive heart failure Plan: Urine output much improved with the addition of metolazone to furosemide. Continue current diuretic regimen. (3) Cardiomyopathy Plan: Deterioration in ejection fraction to 30-35% (4) Chronic respiratory failure with hypercapnia (5) HTN (hypertension) (6) Morbid obesity (7) Diabetes Plan: If the patient's renal indices continue to deteriorate I would recommend discontinuance of metformin for the present as there is a potential development of lactic acidosis in the setting of severe renal insufficiency with metformin which is potentially a serious comorbidity (8) Anemia Plan: s/p Venofer today. Problem Qualifiers (1) Morbid obesity: Qualified Code: E66.01 - Morbid obesity due to excess calories (2) Diabetes: Qualified Code: E11.8 - Type 2 diabetes mellitus with complication, with long- term current use of insulin Delia Reilly MD Dec 19, 2016 15:52
--- NOTE | 2016-12-19 18:09 | HHI.PR ---
Subjective Remarks Improved further. Still has leg edema. No chest pain.. Used Bipap. Output was good with Lasix IV. has lost weight. CXR is improving Objective Vital Signs Date Time Temp Pulse Resp B/P Pulse Ox O2 Delivery O2 Flow Rate FiO2 12/19/16 08:00 89 12/19/16 07:00 98.1 83 18 115/72 94 12/19/16 07:00 91 12/19/16 07:00 94 Nasal Cannula 2.00 12/19/16 06:00 92 12/19/16 05:00 91 12/19/16 04:00 Nasal Cannula 2.00 12/19/16 04:00 98.1 96 22 144/66 94 12/19/16 04:00 96 12/19/16 03:00 94 12/19/16 02:00 90 12/19/16 01:00 94 12/19/16 00:00 90 12/19/16 00:00 98.7 79 22 96/56 95 12/19/16 00:00 Nasal Cannula 2.00 12/18/16 23:00 92 12/18/16 22:04 94 21 12/18/16 22:00 85 12/18/16 21:00 114 12/18/16 20:00 91 12/18/16 20:00 98.6 91 22 133/82 93 I/O 12/18/16 12/18/16 12/18/16 12/19/16 12/19/16 12/19/16 07:00 15:00 23:00 07:00 15:00 23:00 Intake Total 800 ml 1250 ml 680 ml Output Total 1300 ml 1750 ml 1500 ml Balance -500 ml -500 ml -820 ml Intake Oral 600 ml 1250 ml 480 ml IV Total 200 ml 200 ml Output Urine Total 1300 ml 1750 ml 1500 ml # Bowel Movements 1 1 0 Result Diagram: 12/18/16 0641 12/19/16 0705 Objective Remarks GENERAL: This moderately obese middle-aged white male is alert, face is plethoric. HEENT: Head normocephalic. Pupils are reactive. Sclerae were injected. Tongue is moist. Throat is clear.. Nasal mucosa clear.. NECK: Supple. No bruits or thyroid enlargement. CHEST: Equal movements with occasional wheezes bilaterally with prolonged expirations and crackles scattered. CARDIAC: Heart sounds with irregular, S1-S2. No murmur. ABDOMEN: Soft, benign. No masses or organomegaly or tenderness. Bowel sounds are active. EXTREMITIES: Edema 2+ with pigmentation of the skin of the lower extremities. Reflexes are 1+. He does move all his extremities and there are no gross motor deficits. Cranial nerves grossly intact. RECTAL: Exam is deferred. Assessment and Plan Assessment and Plan IMPRESSION 1. Chronic respiratory failure. 2. Acute exacerbation of chronic bronchitis. 3. Bibasilar pulmonary infiltrates, probable pulmonary edema with atelectasis. 4. Diabetes mellitus. 5. Hypertension. Plan : 1. Nebs qid , duoneb. 2. Cont Lasix 80 mg IV bid. 3. O2 at 2 L. 4. Bipap at HS 15/5 cm, Fio2 30 %. 5. Cont Antibiotics as ordered. 6. Ambulate with O2 2L. 7. Will arrange Sleep study as OP. Nieves Nicholas MD Dec 19, 2016 18:09
[2016-12-20] VITALS (25 sets, daily range): BP systolic 104–144; BP diastolic 57–73; PULSE 65–132; RESP 20; TEMP 98–98.7; O2SAT 87–99
[2016-12-20] MEDS: PIPERACIL-TAZO 4.5 GM PREMIX 100 ML IV SCH ×4 (03:47→22:08)
[2016-12-20] MEDS: METOPROLOL TARTRATE 100 MG TAB PO SCH ×3 (05:09→22:10)
[2016-12-20] MEDS: LEVOTHYROXINE SODIUM 75 MCG TAB PO SCH (05:09)
[2016-12-20] MEDS: INSULIN ASPART SUPPLEMENTAL SCALE SQ SCH ×4 (06:18→20:09)
[2016-12-20 07:30] LABS: BICARBONATE 37.1 MEQ/L (21.0-32.0); MAGNESIUM 1.8 MG/DL (1.5-2.5); POTASSIUM 3.5 MEQ/L (3.5-5.1)
[2016-12-20 07:45] LABS: DIGOXIN 0.7 NG/ML (0.8-2.0)
[2016-12-20] MEDS: SODIUM CHLORIDE 0.9% FLUSH 5 ML FLUSH FLUSH SCH ×2 (09:00→20:08)
[2016-12-20] MEDS: FUROSEMIDE 100 MG/10 ML VIAL IV PUSH SCH (09:55)
[2016-12-20] MEDS: ASPIRIN 81 MG CHEW TAB CHEW SCH (09:56)
[2016-12-20] MEDS: GLIMEPIRIDE 1 MG TAB PO SCH (09:56)
[2016-12-20] MEDS: METOLAZONE 2.5 MG TAB PO SCH (09:56)
[2016-12-20] MEDS: CHOLECALCIFEROL (VIT D3) 1000 UNIT TAB PO SCH (09:56)
[2016-12-20] MEDS: DIGOXIN 0.25 MG TAB PO SCH (09:56)
[2016-12-20] MEDS: APIXABAN 5 MG TABLET PO SCH (09:56)
[2016-12-20] MEDS: AMIODARONE 200 MG TAB PO SCH (09:56)
[2016-12-20] MEDS: metFORMIN HCL 500 MG TAB PO SCH ×3 (09:56→20:08)
[2016-12-20] MEDS: LISINOPRIL 5 MG TAB PO SCH (09:57)
[2016-12-20] MEDS ORDERED: DIGOXIN 0.25 MG TAB PO ONE (10:00)
--- NOTE | 2016-12-20 10:00 | HHI.PR ---
Subjective Remarks No new complaints. Pt denies chest pain or palpitations. Objective Vitals Vital Signs Date Time Temp Pulse Resp B/P Pulse Ox O2 Delivery O2 Flow Rate FiO2 12/20/16 08:00 121 12/20/16 07:30 93 Nasal Cannula 2.00 12/20/16 07:00 98.6 80 20 106/64 87 12/20/16 07:00 101 12/20/16 07:00 87 Room Air 12/20/16 05:59 89 12/20/16 05:00 96 12/20/16 04:00 98.4 91 20 104/57 95 12/20/16 04:00 91 12/20/16 04:00 Nasal Cannula 2.00 12/20/16 03:00 89 12/20/16 02:00 85 12/20/16 01:00 91 12/20/16 00:00 Nasal Cannula 2.00 12/20/16 00:00 98.7 86 20 115/71 94 12/20/16 00:00 86 12/19/16 23:00 91 12/19/16 22:00 108 12/19/16 21:00 103 12/19/16 20:00 Nasal Cannula 2.00 12/19/16 20:00 99.0 84 20 111/71 93 12/19/16 20:00 84 12/19/16 18:00 103 12/19/16 17:00 80 12/19/16 16:00 88 12/19/16 15:00 108 12/19/16 15:00 98.9 86 20 127/68 92 12/19/16 15:00 92 Room Air 12/19/16 14:00 110 12/19/16 13:00 108 12/19/16 12:00 94 12/19/16 11:00 96 12/19/16 11:00 93 Room Air 12/19/16 11:00 97.9 88 18 139/76 93 12/19/16 10:00 122 12/19/16 12/19/16 12/20/16 15:00 23:00 07:00 Intake Total 940 ml 680 ml Output Total 2000 ml 1800 ml Balance -1060 ml -1120 ml Intake Oral 840 ml 480 ml IV Total 100 ml 200 ml Output Urine Total 2000 ml 1800 ml # Bowel Movements 0 0 Result Diagram: 12/18/16 0641 12/20/16 0611 Imaging Last Impressions Chest X-Ray 12/18/16 0600 Signed Impressions: Service Date/Time: Sunday, December 18, 2016 05:39 - CONCLUSION: Cardiomegaly. No acute cardiopulmonary disease. Garrett Pickard MD Renal Ultrasound 12/16/16 0000 Signed Impressions: Service Date/Time: Friday, December 16, 2016 16:23 - CONCLUSION: No acute disease. Rogerio Wayne MD CT Angiography 12/14/16 1449 Signed Impressions: Service Date/Time: Wednesday, December 14, 2016 15:43 - CONCLUSION: 1. No pulmonary embolus is identified. 2. 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 3. There are some small subcarinal and pretracheal nodes. There is a node in the pretracheal goldie chain measuring 2.5 x [address] scan in 6 months to ensure stability would be warranted. Marin Appiah MD Lower Extremity Ultrasound 12/14/16 0000 Signed Impressions: Service Date/Time: Wednesday, December 14, 2016 12:18 - CONCLUSION: 1. Diffuse soft tissue swelling. 2. Unable to compress the mid and distal portions of the superficial femoral vein due to regional soft tissue swelling and discomfort. No echogenic clot and normal Doppler flow identified, however. No sonographic or Doppler findings of deep venous thrombosis. Tony Roach MD Objective Remarks GENERAL: This is a well-nourished, well-developed patient, in no apparent distress. CARDIOVASCULAR: Regular rate and rhythm without murmurs, gallops, or rubs. RESPIRATORY: Clear to auscultation. Breath sounds equal bilaterally. No wheezes , rales, or rhonchi. GASTROINTESTINAL: Abdomen soft, non-tender, nondistended. Normal active bowel sounds MUSCULOSKELETAL: Extremities without clubbing, cyanosis, or edema. NEURO: Alert & Oriented x4 to person, place, time, situation. Moves all ext x4 A/P Problem List: (1) Cellulitis of right leg Status: Acute Plan: - Pt with several days of worsening RLE edema, erythema, pain and subjective fevers/chills. - Pt admitted under SIRS sepsis criteria with tachycardia, leukocytosis (16,000) - Pt was given a dose of IV Zosyn in the ER and 4L of IVF - Pt has reportedly been homeless for a couple of weeks and has been staying in a car or staying at [facility] - [facility] (12/14) --> Diffuse soft tissue swelling. Unable to compress the mid and distal portions of the superficial femoral vein due to regional soft tissue swelling and discomfort. No echogenic clot and normal Doppler flow identified, however. No sonographic or Doppler findings of deep venous thrombosis. - CTA (12/14) --> No pulmonary embolus is identified. Patchy areas of ground- glass infiltrate throughout predominantly the lower lobes most suggestive of an extrinsic allergic alveolitis. There are some small subcarinal and pretracheal nodes. There is a node in the pretracheal goldie chain measuring 2.5 x 1.[address] scan in 6 months to ensure stability would be warranted. - Cont. IV Zosyn 12/14, (12/16 - present), will probably stop in next 1-2 days - IV lasix, KCL - eliquis - significant LE edema - lasix to 80mg IV BID, observe creatinine - trial of Zaroxolyn, start at 2.5mg daily 12/19/16 - stop zosyn (12/21/16) - continue lasix/zaroxolyn/KCL - repeat BMP, Mag in AM (2) Acute renal insufficiency Status: Acute Plan: - Creatinine 1.58 (12/20/16), so starting to trend back upwards - repeat BMP in AM - if Creatinine continue to rise, then may need to decrease/stop zaroxolyn - Cogmt with Nephrology, appreciate input from Dr. Reilly - likely d/t IV diuresis, underlying CKD, and possibly contrast nephropathy with recent CTA (12/14/16) - IV lasix 80mg BID, observe - zaroxolyn, KCL - US Kidneys, ureters, bladder (12/16/16) --> NO acute findings - pt states prior h/o nephrolithiasis - iron deficiency, IV Venofer (12/18/16) (3) Atrial flutter with rapid ventricular response Status: Acute Plan: - comgmt with Cardiology - Case d/w Dr. Goff (12/15/16) - metoprolol to 100mg TID - amiodarone 200mg daily - digoxin 0.25mg daily - digoxin level (12/20/16) 0.7 - will give additional dose of digoxin 0.50mg once - repeat digoxin level in AM - Dr. Blackwell will consult, possible EPS and ablation? - Telemetry: Atrial flutter, HR 100-110 with occasional spikes up into the 140s (4) Chronic respiratory failure with hypercapnia Status: Acute Plan: - comgmt with Dr. Nicholas, Pulm Medicine - start Bipap at night 14/04 at 28%FiO2 - pt has previously been unable to tolerate "Bipap - I asked nursing/pt to make sure that respiratory bring Bipap this evening and another attempt at Bipap is made. - duonebs - PFTs (5) Alveolitis, allergic (extrinsic) Status: Acute Plan: - CTA chest (12/13/16) 1. No pulmonary embolus is identified. 2. 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 3. There are some small subcarinal and pretracheal nodes. There is a node in the pretracheal goldie chain measuring 2.5 x 1.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 - Hold home BP meds - metoprolol 100mg TID - lisinopril 2.5mg daily (started 12/17/16) (8) Diastolic dysfunction Status: Chronic Plan: - Last 2D echo in 2014 noted diastolic dysfunction - See above. (9) Chronic edema Status: Chronic Plan: - See above. (10) Hypothyroidism Status: Chronic Plan: - Cont. home meds (11) Tobacco abuse Status: Chronic Plan: - Discussed tobacco cessation - Offered the pt a Nicotine patch which he declined for now. (12) Morbid obesity Status: Acute Plan: - after discharge, pt will need to work on weight loss - recommend f/u with [facility] bathhouse attendant after discharge (13) TRE (obstructive sleep apnea) Status: Acute Plan: - strongly suspect that pt has undiagnosed TRE based on history of wake time somnolence and body habitus - pt will need outpt sleep study for TRE after discharge Problem Qualifiers (1) Diabetes: Qualified Code: E11.8 - Type 2 diabetes mellitus with complication, with long- term current use of insulin (2) Morbid obesity: Qualified Code: E66.01 - Morbid obesity due to excess calories Juan Davidson DO Dec 20, 2016 10:00
[2016-12-20] MEDS ORDERED: PILL SPLITTER OTHER PRN (10:15)
--- NOTE | 2016-12-20 11:22 | HHI.NPPN ---
Subjective History of Present Illness This patient is a 51-year-old male with a history of long-standing diabetes mellitus apparently poorly controlled, hypertension who denies any previous knowledge of renal disease including proteinuria who was admitted after presenting with increasing lower extremity edema, atrial flutter with rapid ventricular rate. Also being treated for cellulitis lower extremity. On presentation creatinine level was 1.31. Current baseline level prior to this admission unknown. Subsequent evaluation is indicated that his ejection fraction which was previously said to be 55% has deteriorated to 30-35%. Patient is currently being diuresed for fluid retention and pulmonary congestion. It is noted that patient had a CTA performed on the of this month. Interval History Pt resting today. Has been started on BiPAP in the evenings for sleep apnea. Objective Data Data 12/19/16 12/20/16 19:00 07:00 Intake Total 940 ml 680 ml Output Total 2000 ml 1800 ml Balance -1060 ml -1120 ml Intake Oral 840 ml 480 ml IV Total 100 ml 200 ml Output Urine Total 2000 ml 1800 ml # Bowel Movements 0 0 Vital Signs Date Time Temp Pulse Resp B/P Pulse Ox O2 Delivery O2 Flow Rate FiO2 12/20/16 10:08 93 Nasal Cannula 2.00 12/20/16 08:00 121 12/20/16 07:30 93 Nasal Cannula 2.00 12/20/16 07:00 98.6 80 20 106/64 87 12/20/16 07:00 101 12/20/16 07:00 87 Room Air 12/20/16 05:59 89 12/20/16 05:00 96 12/20/16 04:00 98.4 91 20 104/57 95 12/20/16 04:00 91 12/20/16 04:00 Nasal Cannula 2.00 12/20/16 03:00 89 12/20/16 02:00 85 12/20/16 01:00 91 12/20/16 00:00 Nasal Cannula 2.00 12/20/16 00:00 98.7 86 20 115/71 94 12/20/16 00:00 86 12/19/16 23:00 91 12/19/16 22:00 108 12/19/16 21:00 103 12/19/16 20:00 Nasal Cannula 2.00 12/19/16 20:00 99.0 84 20 111/71 93 12/19/16 20:00 84 12/19/16 18:00 103 12/19/16 17:00 80 12/19/16 16:00 88 12/19/16 15:00 108 12/19/16 15:00 98.9 86 20 127/68 92 12/19/16 15:00 92 Room Air 12/19/16 14:00 110 12/19/16 13:00 108 12/19/16 12:00 94 -: 12/18/16 0641 12/20/16 0611 Medication Review Current Medications Medications (Trade) Dose Ordered Sig/Kennedy Route Start Time Stop Time Status Last Admin (NS Flush) 2 ml UNSCH PRN FLUSH 12/14/16 16:30 (NS Flush) 2 ml BID FLUSH 12/14/16 21:00 12/20/16 09:00 (Tylenol) 650 mg Q4H PRN PO 12/14/16 16:30 (Zofran Inj) 4 mg Q6H PRN IVP 12/14/16 16:30 (Dulcolax Supp) 10 mg DAILY PRN WI 12/14/16 16:30 (Milk Of Magnyvette Liq) 30 ml Q12H PRN PO 12/14/16 16:30 (Narcan Inj) 0.4 mg UNSCH PRN IV 12/14/16 16:30 (Aspirin Chew) 81 mg DAILY CHEW 12/15/16 09:00 12/20/16 09:56 (Vitamin D3) 1,000 units DAILY PO 12/15/16 09:00 12/20/16 09:56 (Synthroid) 75 mcg DAILY@06 PO 12/15/16 06:00 12/20/16 05:09 (Glucophage) 1,000 mg BID PO 12/14/16 21:00 12/20/16 09:56 (Glucophage) 500 mg DAILY@12 PO 12/15/16 12:00 12/19/16 13:28 (D50w (Vial) Inj) 25 ml UNSCH PRN IV PUSH 12/14/16 16:45 (Glucagon Inj) 1 mg UNSCH PRN OTHER 12/14/16 16:45 (Loda 7.5-325 Mg) 1 tab Q6H PRN PO 12/14/16 17:15 12/16/16 05:32 (Lopressor) 100 mg Q8HR PO 12/15/16 14:00 12/20/16 05:09 Apixaban 5 mg 5 mg BID PO 12/15/16 21:00 12/20/16 09:56 (Zosyn 4.5 Gm Premix) 100 ml @ 200 mls/hr Q6H IV 12/16/16 17:00 12/21/16 06:00 12/20/16 03:47 (Prinivil) 2.5 mg DAILY PO 12/17/16 09:00 12/20/16 09:57 (Cordarone) 200 mg DAILY PO 12/17/16 09:00 12/20/16 09:56 (Lasix Inj) 80 mg BID@,18 IV PUSH 12/17/16 18:00 12/20/16 09:55 (Lanoxin) 0.25 mg DAILY PO 12/19/16 09:00 12/20/16 09:56 (Zaroxolyn) 5 mg DAILY PO 12/20/16 09:00 12/20/16 09:56 (Amaryl) 0.5 mg DAILYAC PO 12/21/16 08:00 (Pill Splitter) 1 ea UNSCH PRN OTHER 12/20/16 10:15 Physical Exam General Appearance: No Acute Distress Eyes Eye Exam: Pupils Equal, Pupils Reactive Ears & Nose Ears & Nose Exam: Tympanic Membranes Normal Throat Throat Exam: Oral Mucosa [place] & Moist Neck Neck Exam: Neck Supple, Trachea Midline Pulmonary Resp Exam: Clear Bilaterally, Breath Sounds Equal, Diminished Breath Sounds Cardiology CV Exam: Regular, Normal Sinus Rhythm Gastrointestinal/Abdomen GI Exam: Soft, Non-Tender Integumentary Skin Exam: Warm Extremeties Extremities Exam: Moderate Edema (but clinically improved.), Pitting Edema Extremeties Remarks Edema improving with diuresis. 1+ pitting up to knees Psychiatric Psych Exam: Appropriate Responses Assessment/Plan Problem List: (1) Acute renal insufficiency Plan: I suspect the patient has acute on chronic renal insufficiency. Acute component may be related to contrast nephrotoxicity as well as a possible component of cardiorenal syndrome. Chronic kidney disease is suspected secondary to duration of diabetes mellitus, poor control previously. SCr stable. This may be his new baseline Labs reviewed from [facility] from December and January 2015 for which he was seen in the ED but not admitted for same complaints was 0.7. HCV PCR pending. UPCr shows minimal proteinuria. Other serology pending. Medications should be adjusted for the patient's estimated GFR if clinically indicated. Avoid agents with significant potential for nephrotoxicity possible including NSAIDs for analgesia, iodine contrast agents. Gadolinium is contraindicated if the GFR is below 30. We'll see patient intermittently. (2) Congestive heart failure Plan: Urine output much improved with the addition of metolazone to furosemide. Developing contraction alkalosis. Continue current diuretic regimen & monitor. (3) Cardiomyopathy Plan: Deterioration in ejection fraction to 30-35% (4) Chronic respiratory failure with hypercapnia (5) HTN (hypertension) (6) Morbid obesity (7) Diabetes Plan: If the patient's renal indices continue to deteriorate I would recommend discontinuance of metformin for the present as there is a potential development of lactic acidosis in the setting of severe renal insufficiency with metformin which is potentially a serious comorbidity (8) Anemia Plan: s/p Venofer today. Problem Qualifiers (1) Morbid obesity: Qualified Code: E66.01 - Morbid obesity due to excess calories (2) Diabetes: Qualified Code: E11.8 - Type 2 diabetes mellitus with complication, with long- term current use of insulin Moira Juarez Dec 20, 2016 11:22
--- NOTE | 2016-12-20 14:14 | HHI.PR ---
Subjective Remarks Improved further. Less leg edema. No chest pain.. Used Bipap.at HS Output was good with Lasix IV. has lost weight. CXR is improving Objective Vital Signs Date Time Temp Pulse Resp B/P Pulse Ox O2 Delivery O2 Flow Rate FiO2 12/20/16 14:00 116 12/20/16 13:00 132 12/20/16 12:00 96 12/20/16 11:00 108 12/20/16 10:08 93 Nasal Cannula 2.00 12/20/16 10:00 104 12/20/16 09:00 104 12/20/16 08:00 121 12/20/16 07:30 93 Nasal Cannula 2.00 12/20/16 07:00 98.6 80 20 106/64 87 12/20/16 07:00 101 12/20/16 07:00 87 Room Air 12/20/16 05:59 89 12/20/16 05:00 96 12/20/16 04:00 98.4 91 20 104/57 95 12/20/16 04:00 91 12/20/16 04:00 Nasal Cannula 2.00 12/20/16 03:00 89 12/20/16 02:00 85 12/20/16 01:00 91 12/20/16 00:00 Nasal Cannula 2.00 12/20/16 00:00 98.7 86 20 115/71 94 12/20/16 00:00 86 12/19/16 23:00 91 12/19/16 22:00 108 12/19/16 21:00 103 12/19/16 20:00 Nasal Cannula 2.00 12/19/16 20:00 99.0 84 20 111/71 93 12/19/16 20:00 84 12/19/16 18:00 103 12/19/16 17:00 80 12/19/16 16:00 88 12/19/16 15:00 108 12/19/16 15:00 98.9 86 20 127/68 92 12/19/16 15:00 92 Room Air I/O 12/19/16 12/19/16 12/19/16 12/20/16 12/20/16 12/20/16 07:00 15:00 23:00 07:00 15:00 23:00 Intake Total 680 ml 940 ml 680 ml Output Total 1500 ml 2000 ml 1800 ml Balance -820 ml -1060 ml -1120 ml Intake Oral 480 ml 840 ml 480 ml IV Total 200 ml 100 ml 200 ml Output Urine Total 1500 ml 2000 ml 1800 ml # Bowel Movements 0 0 0 Result Diagram: 12/18/1641 12/20/16 0611 Objective Remarks GENERAL: This moderately obese middle-aged white male is alert, face is plethoric. HEENT: Head normocephalic. Pupils are reactive. Sclerae were injected. Tongue is moist. Throat is clear. Nasal mucosa clear.. NECK: Supple. No bruits or thyroid enlargement. CHEST: Equal movements with occasional wheezes bilaterally with prolonged expirations. CARDIAC: Heart sounds with irregular, S1-S2. No murmur. ABDOMEN: Soft, benign. No masses or organomegaly or tenderness. Bowel sounds are active. EXTREMITIES: Edema 1+ with pigmentation of the skin of the lower extremities. Reflexes are 1+. He does move all his extremities and there are no gross motor deficits. Cranial nerves grossly intact. RECTAL: Exam is deferred. Assessment and Plan Assessment and Plan IMPRESSION 1. Chronic respiratory failure. 2. Acute exacerbation of chronic bronchitis. 3. Bibasilar pulmonary infiltrates, probable pulmonary edema with atelectasis. 4. Diabetes mellitus. 5. Hypertension. Plan : 1. Nebs qid , duoneb. 2. Cont Lasix 80 mg IV bid. 3. O2 at 2 L. 4. Bipap at HS 15/5 cm, Fio2 30 %.Will get home CPAP machine . 5. Cont Antibiotics and switch to PO. 6. Ambulate with O2 2L. 7. Will arrange Sleep study as OP. Nieves Nicholas MD Dec 20, 2016 14:14
--- NOTE | 2016-12-20 14:33 | MB ---
cc: ABHILASH WEINBERG M.D. DATE OF CONSULTATION: 12/20/2016. REASON FOR CONSULTATION: Electrophysiology consult for atrial flutter, unable to control with medication. HISTORY OF PRESENT ILLNESS: Mr. Matthews is a 51-year-old gentleman with history of diabetes mellitus, high blood pressure, diastolic dysfunction, CVA, morbid obesity, and atrial flutter. The gentleman is on anticoagulation with Eliquis. He was admitted due to shortness of breath and cellulitis. During hospitalization, he receive IV antibiotic. Pulmonary function is significantly improved. Heart rate stays in the 130s to 140s despite being on digoxin, Cardizem, amiodarone, metoprolol. I was consulted for evaluation for possible ablation. The chart was reviewed. The patient was evaluated. ALLERGIES: None. SOCIAL HISTORY: The gentleman denies smoking and drinking. FAMILY HISTORY: Noncontributory to his current medical condition. MEDICATIONS: Currently the gentleman is on: 1. Digoxin 0.25 milligrams a day. 2. He is on Zosyn IV. 3. He is on Venus. 4. He is on amiodarone 200 milligrams a day. 5. He is on Eliquis 5 mg twice a day. 6. He is on Lasix IV 80 milligrams twice a day. 7. He is on Glimepiride. 8. Lisinopril 2.5 milligrams a day. 9. He is on metformin 1500 milligrams twice a day. 10. Metolazone 5 milligrams a day. 11. Metoprolol 100 milligrams q. 8 hours. REVIEW OF SYSTEMS: He refers shortness of breath and palpitations but no chest pain or chest discomfort. PHYSICAL EXAMINATION: GENERAL: Alert, fully oriented, pleasant in bed. VITAL SIGNS: His blood pressure is 106/64, pulse around 121, respiratory rate 20. LUNGS: Ventilated. No rales, no crackles, no wheezing. CARDIOVASCULAR: S1 and S2. Tachycardic. Regular. ABDOMEN: Abdomen obese, no mass. No bruits. EXTREMITIES: With edema and apparent poor circulation. The patient most likely has venous stasis instead of cellulitis. EKGS: Electrocardiogram shows atrial flutter with fast ventricular response. Diffuse S-T changes. LABS: Hemoglobin is 10.1. White blood cells coming down at 9.9. Potassium 3.5. Creatinine 1.58. INR 1.1. ASSESSMENT AND RECOMMENDATIONS: Mr. Matthews's heart rate is very difficult to control. He is on multiple medications. He is on metoprolol. He is on amiodarone. He is on digoxin. He was on Cardizem. His heart rate is still high. He is on anticoagulation with Eliquis. His creatinine is increasing but is still close to the safe zone. There was an issue regarding possible edema of the extremities. Apparently this is more venous stasis than anything. He is on IV Lasix. 1. I am going to discontinue the IV Lasix. 2. I am going to put him on Bumex 1 milligram a day. 3. I am going to discontinue the Digoxin. 4. For now he will stay on metoprolol and amiodarone. 5. I am going also to hold the Eliquis. 6. I will keep him NPO tomorrow for possible ablation late in the morning or tomorrow afternoon. The case was extensively discussed with him. The risks, the nature and the benefits of the procedure were clearly stated to him. The risks include pneumothorax, cardiac perforation, stroke and even . He understood and agreed to proceed. The procedure will be performed during the hospitalization. Abhilash Weinberg MD /ZAK /1:54 PM /2:21 PM
[2016-12-20 15:51] LABS: HCV RNA PCR IU/ML LESS THAN 15 IU/mL (()); HCV RNA PCR LOGIU/ML LESS THAN 1.18 (())
[2016-12-21] VITALS (27 sets, daily range): BP systolic 100–142; BP diastolic 45–75; PULSE 66–111; RESP 14–20; TEMP 97.7–98.2; O2SAT 89–97
--- NOTE | 2016-12-21 05:11 | RADRPT ---
EXAM DATE/TIME: 12/21/2016 04:13 [place] COMPARISON: CHEST SINGLE AP, December 18, 2016, 5:39. INDICATIONS : Shortness of breath, possible pulmonary disease. MEDICAL HISTORY : Diabetes mellitus type II. SURGICAL HISTORY : None. ENCOUNTER: Subsequent ACUITY: 1 week PAIN SCORE: 0/10 LOCATION: Bilateral chest FINDINGS: The heart size is borderline enlarged. The lungs are clear. No effusion is seen. CONCLUSION: Borderline cardiomegaly. Rogerio Wayne MD on December 21, 2016 at 5:09 Board Certified Radiologist. This report was verified electronically.
[2016-12-21] MEDS: METOPROLOL TARTRATE 100 MG TAB PO SCH ×2 (05:17→13:45)
[2016-12-21] MEDS: LEVOTHYROXINE SODIUM 75 MCG TAB PO SCH (05:17)
[2016-12-21] MEDS: PIPERACIL-TAZO 4.5 GM PREMIX 100 ML IV SCH (05:17)
[2016-12-21] MEDS: INSULIN ASPART SUPPLEMENTAL SCALE SQ SCH ×4 (05:59→20:17)
[2016-12-21 07:35] LABS: AUTOMATED NEUTROPHIL # 8.8 TH/MM3 (1.8-7.7); BASOPHIL # 0.1 TH/MM3 (0-0.2); BASOPHIL % 0.5 % (0.0-2.0); EOSINOPHIL # 0.3 TH/MM3 (0-0.4); EOSINOPHIL % 2.9 % (0.0-4.0); HEMATOCRIT 38.5 % (39.0-51.0); HEMO FLAGS DIFF FINAL; LYMPH % 13.1 % (9.0-44.0); LYMPHOCYTE # 1.5 TH/MM3 (1.0-4.8); MEAN CELL VOLUME 81.4 FL (80.0-100.0); MEAN CORPUSCULAR HEMOGLOBIN 25.5 PG (27.0-34.0); MEAN CORPUSCULAR HGB CONC 31.3 % (32.0-36.0); MONO % 8.2 % (0.0-8.0); NEUT % 75.3 % (16.0-70.0); PLATELET COUNT 403 TH/MM3 (150-450); RED BLOOD COUNT 4.72 MIL/MM3 (4.50-5.90); RED CELL DISTRIBUTION WIDTH 16.2 % (11.6-17.2); WHITE BLOOD COUNT 11.7 TH/MM3 (4.0-11.0)
[2016-12-21 07:53] LABS: BICARBONATE 38.3 MEQ/L (21.0-32.0); POTASSIUM 3.7 MEQ/L (3.5-5.1)
[2016-12-21 08:07] LABS: DIGOXIN 1.2 NG/ML (0.8-2.0)
[2016-12-21] MEDS: metFORMIN HCL 500 MG TAB PO SCH (09:00)
[2016-12-21] MEDS: ASPIRIN 81 MG CHEW TAB CHEW SCH (09:00)
--- NOTE | 2016-12-21 10:09 | HHI.PR ---
Subjective Remarks legs feel better. not painful. breathing better. eager for d/c Objective Vitals heart reg lung good air entry abd s/nt ext edema better. light pink leg discoloration. bright red resolved Vital Signs Date Time Temp Pulse Resp B/P Pulse Ox O2 Delivery O2 Flow Rate FiO2 12/21/16 05:59 107 12/21/16 05:00 111 12/21/16 04:28 Nasal Cannula 2.00 12/21/16 04:28 98.2 104 18 141/72 94 12/21/16 04:00 104 12/21/16 03:00 100 12/21/16 02:00 95 12/21/16 01:00 82 12/21/16 00:00 98.2 108 18 100/68 95 12/21/16 00:00 Nasal Cannula 2.00 12/21/16 00:00 98 12/20/16 23:00 85 12/20/16 22:00 84 12/20/16 21:48 BiPAP 12/20/16 21:00 89 12/20/16 20:00 95 12/20/16 20:00 98.6 95 20 111/69 93 12/20/16 20:00 Nasal Cannula 2.00 12/20/16 18:13 96 Nasal Cannula 2.00 12/20/16 18:00 96 12/20/16 17:00 68 12/20/16 16:00 88 12/20/16 15:00 96 Room Air 12/20/16 15:00 98.1 65 20 118/58 96 12/20/16 15:00 80 12/20/16 14:00 116 12/20/16 13:00 132 12/20/16 12:00 96 12/20/16 11:00 99 Nasal Cannula 2.00 12/20/16 11:00 108 12/20/16 11:00 98.0 78 20 144/73 99 12/20/16 10:08 93 Nasal Cannula 2.00 12/20/16 12/20/16 12/21/16 15:00 23:00 07:00 Intake Total 820 ml 680 ml Output Total 1770 ml 1850 ml Balance -950 ml -1170 ml Intake Oral 720 ml 480 ml IV Total 100 ml 200 ml Output Urine Total 1770 ml 1850 ml # Bowel Movements 0 0 Result Diagram: 12/21/16 0639 12/21/16 0639 Imaging Last Impressions Chest X-Ray 12/18/16 0600 Signed Impressions: Service Date/Time: Sunday, December 18, 2016 05:39 - CONCLUSION: Cardiomegaly. No acute cardiopulmonary disease. Garrett Pickard MD Renal Ultrasound 12/16/16 0000 Signed Impressions: Service Date/Time: Friday, December 16, 2016 16:23 - CONCLUSION: No acute disease. Rogerio Wayne MD CT Angiography 12/14/16 1449 Signed Impressions: Service Date/Time: Wednesday, December 14, 2016 15:43 - CONCLUSION: 1. No pulmonary embolus is identified. 2. 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 3. There are some small subcarinal and pretracheal nodes. There is a node in the pretracheal goldie chain measuring 2.5 x 1.[address] scan in 6 months to ensure stability would be warranted. Marin Appiah MD Lower Extremity Ultrasound 12/14/16 0000 Signed Impressions: Service Date/Time: Wednesday, December 14, 2016 12:18 - CONCLUSION: 1. Diffuse soft tissue swelling. 2. Unable to compress the mid and distal portions of the superficial femoral vein due to regional soft tissue swelling and discomfort. No echogenic clot and normal Doppler flow identified, however. No sonographic or Doppler findings of deep venous thrombosis. Tony Roach MD A/P Problem List: (1) Cellulitis of right leg Status: Acute Plan: - Pt with several days of worsening RLE edema, erythema, pain and subjective fevers/chills. - Pt admitted under SIRS sepsis criteria with tachycardia, leukocytosis (16,000) - Pt was given a dose of IV Zosyn in the ER and 4L of IVF - Pt has reportedly been homeless for a couple of weeks and has been staying in a car or staying at [facility] (12/14) --> Diffuse soft tissue swelling. Unable to compress the mid and distal portions of the superficial femoral vein due to regional soft tissue swelling and discomfort. No echogenic clot and normal Doppler flow identified, however. No sonographic or Doppler findings of deep venous thrombosis. - CTA (12/14) --> No pulmonary embolus is identified. Patchy areas of ground- glass infiltrate throughout predominantly the lower lobes most suggestive of an extrinsic allergic alveolitis. There are some small subcarinal and pretracheal nodes. There is a node in the pretracheal goldie chain measuring 2.5 x 1.[address] scan in 6 months to ensure stability would be warranted. -convert iv to po abx - iv lasix stopped by cardiology - eliquis on hold for EPS (2) Atrial flutter with rapid ventricular response Status: Acute Plan: - comgmt with Cardiology - Case d/w Dr. Goff (12/15/16) - metoprolol to 100mg TID - amiodarone 200mg daily - digoxin 0.25mg daily Seen by Dr Blackwell. planning eps and ?ablation digoxin stopped as well as lasix per cardiology. (3) Acute renal insufficiency Status: Acute Plan: - Creatinine 1.58 (12/20/16), so starting to trend back upwards -- Cogmt with Nephrology, appreciate input from Dr. Reilly - likely d/t IV diuresis, underlying CKD, and possibly contrast nephropathy with recent CTA (12/14/16) - US Kidneys, ureters, bladder (12/16/16) --> NO acute findings iv diuretic held per cardiology (4) Chronic respiratory failure with hypercapnia Status: Acute Plan: - comgmt with Dr. Nicholas, Pulm Medicine - start Bipap at night 14/6 at 28%FiO2 - pt has previously been unable to tolerate "Bipap - I asked nursing/pt to make sure that respiratory bring Bipap this evening and another attempt at Bipap is made. - duonebs - PFTs (5) Alveolitis, allergic (extrinsic) Status: Acute Plan: - CTA chest (12/13/16) 1. No pulmonary embolus is identified. 2. 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 3. There are some small subcarinal and pretracheal nodes. There is a node in the pretracheal goldie chain measuring 2.5 x 1.[address] scan in 6 months to ensure stability would be warranted - requiring 3L NC - Pt works at [employer] facility (6) Diabetes Status: Chronic Plan: - currently stable - Poorly controlled - Hgb A1C 9.7% in 11/2016 - Metformin 1000mg BID and 500mg at noon - NovoLog SSI - resume Amaryl at 1mg BID --> decrease to 0.5mg BID - Accu checks (7) HTN (hypertension) Status: Chronic Plan: - Pt normally takes Enalapril 20mg po BID and Norvasc 10mg po daily. - Hold home BP meds - metoprolol 100mg TID - lisinopril 2.5mg daily (started 12/17/16) (8) Diastolic dysfunction Status: Chronic Plan: - Last 2D echo in 2014 noted diastolic dysfunction - See above. (9) Chronic edema Status: Chronic Plan: - See above. (10) Hypothyroidism Status: Chronic Plan: - Cont. home meds (11) Tobacco abuse Status: Chronic Plan: - Discussed tobacco cessation - Offered the pt a Nicotine patch which he declined for now. (12) Morbid obesity Status: Acute Plan: - after discharge, pt will need to work on weight loss - recommend f/u with [facility] end polisher after discharge (13) TRE (obstructive sleep apnea) Status: Acute Plan: - strongly suspect that pt has undiagnosed TRE based on history of wake time somnolence and body habitus - pt will need outpt sleep study for TRE after discharge Problem Qualifiers (1) Diabetes: Qualified Code: E11.8 - Type 2 diabetes mellitus with complication, with long- term current use of insulin (2) Morbid obesity: Qualified Code: E66.01 - Morbid obesity due to excess calories Ranjan Lozano MD Dec 21, 2016 10:09
[2016-12-21] MEDS: CHOLECALCIFEROL (VIT D3) 1000 UNIT TAB PO SCH (10:11)
[2016-12-21] MEDS: SODIUM CHLORIDE 0.9% FLUSH 5 ML FLUSH FLUSH SCH ×2 (10:11→20:17)
[2016-12-21] MEDS: GLIMEPIRIDE 1 MG TAB PO SCH (10:12)
[2016-12-21] MEDS: METOLAZONE 2.5 MG TAB PO SCH (10:12)
[2016-12-21 10:16] LABS: ALBUMIN SPE 3.43 GM/DL (3.50-5.00); ALPHA 1 GLOBULIN 0.43 GM/DL (0.11-0.29); ALPHA 2 GLOBULIN 1.04 GM/DL (0.22-1.00)
--- NOTE | 2016-12-21 11:43 | HHI.NPPN ---
Subjective History of Present Illness This patient is a 51-year-old male with a history of long-standing diabetes mellitus apparently poorly controlled, hypertension who denies any previous knowledge of renal disease including proteinuria who was admitted after presenting with increasing lower extremity edema, atrial flutter with rapid ventricular rate. Also being treated for cellulitis lower extremity. On presentation creatinine level was 1.31. Current baseline level prior to this admission unknown. Subsequent evaluation is indicated that his ejection fraction which was previously said to be 55% has deteriorated to 30-35%. Patient is currently being diuresed for fluid retention and pulmonary congestion. It is noted that patient had a CTA performed on the of this month. Review of Systems General Constitutional: Fatigue Respiratory Lungs: SOB Cardiovascular Cardiac: Edema Objective Data Data 12/20/16 12/21/16 19:00 07:00 Intake Total 820 ml 680 ml Output Total 1770 ml 1850 ml Balance -950 ml -1170 ml Intake Oral 720 ml 480 ml IV Total 100 ml 200 ml Output Urine Total 1770 ml 1850 ml # Bowel Movements 0 0 Vital Signs Date Time Temp Pulse Resp B/P Pulse Ox O2 Delivery O2 Flow Rate FiO2 12/21/16 07:00 97.8 69 20 109/45 89 12/21/16 07:00 69 12/21/16 05:59 107 12/21/16 05:00 111 12/21/16 04:28 Nasal Cannula 2.00 12/21/16 04:28 98.2 104 18 141/72 94 12/21/16 04:00 104 12/21/16 03:00 100 12/21/16 02:00 95 12/21/16 01:00 82 12/21/16 00:00 98.2 108 18 100/68 95 12/21/16 00:00 Nasal Cannula 2.00 12/21/16 00:00 98 12/20/16 23:00 85 12/20/16 22:00 84 12/20/16 21:48 BiPAP 12/20/16 21:00 89 12/20/16 20:00 95 12/20/16 20:00 98.6 95 20 111/69 93 12/20/16 20:00 Nasal Cannula 2.00 12/20/16 18:13 96 Nasal Cannula 2.00 12/20/16 18:00 96 12/20/16 17:00 68 12/20/16 16:00 88 12/20/16 15:00 96 Room Air 12/20/16 15:00 98.1 65 20 118/58 96 12/20/16 15:00 80 12/20/16 14:00 116 12/20/16 13:00 132 12/20/16 12:00 96 -: 12/21/16 0639 12/21/16 0639 Medication Review Current Medications Diltiazem HCl (Cardizem Inj) 25 mg STK-MED ONCE .ROUTE ; Start 12/14/16 at 14:47 ; Stop 12/14/16 at 14:48; Status DC Diltiazem HCl (Cardizem Inj) 48 mg BOLUS ONCE IV PUSH Last administered on 14:57; Start 12/14/16 at 15:00; Stop 12/14/16 at 15:01; Status DC IV Flush 2 ml 2 ml UNSCH PRN IVF FLUSH AFTER USING IV ACCESS; Start 12/14/16 at 15:00; Stop 12/14/16 at 16:35; Status DC Piperacillin Sod/ Tazobactam Sod 100 ml @ 200 mls/hr ONCE STAT IV Last administered on 12/14/16 15:36; Start 12/14/16 at 15:11; Stop 12/14/16 at 15:40 ; Status DC Sodium Chloride 1,000 ml @ 1,000 mls/hr Q1H ONCE IV Last administered on 15:36; Start 12/14/16 at 15:11; Stop 12/14/16 at 16:10; Status DC Sodium Chloride 1,000 ml @ 1,000 mls/hr Q1H ONCE IV Last administered on 16:27; Start 12/14/16 at 15:11; Stop 12/14/16 at 16:10; Status DC Sodium Chloride 1,000 ml @ 1,000 mls/hr Q1H ONCE IV Last administered on 16:27; Start 12/14/16 at 15:11; Stop 12/14/16 at 16:10; Status DC Sodium Chloride (NS 1000 ml Inj) 900 ml @ 1,000 mls/hr Q54M ONCE IV Last administered on 12/14/16 16:48; Start 12/14/16 at 15:11; Stop 12/14/16 at 16:04 ; Status DC Iohexol (Omnipaque 350 Inj) 69 ml STK-MED ONCE IV Last administered on 15:45; Start 12/14/16 at 15:45; Stop 12/14/16 at 15:46; Status DC IV Flush (NS Flush) 2 ml UNSCH PRN FLUSH FLUSH AFTER USING IV ACCESS; Start at 16:30 IV Flush (NS Flush) 2 ml BID FLUSH Last administered on 12/21/16 10:11; Start 12/14/16 at 21:00 Acetaminophen (Tylenol) 650 mg Q4H PRN PO TEMP > 100.4; Start 12/14/16 at 16:30 Ondansetron HCl (Zofran Inj) 4 mg Q6H PRN IVP NAUSEA OR VOMITING; Start at 16:30 Bisacodyl (Dulcolax Supp) 10 mg DAILY PRN LA CONSTIPATION; Start 12/14/16 at 16 :30 Magnesium Hydroxide (Milk Of Magnesia Liq) 30 ml Q12H PRN PO CONSTIPATION; Start 12/14/16 at 16:30 Enoxaparin Sodium (Lovenox Inj) 30 mg Q24H SQ Last administered on 12/14/16 16 :49; Start 12/14/16 at 17:00; Stop 12/14/16 at 22:10; Status DC Naloxone HCl (Narcan Inj) 0.4 mg UNSCH PRN IV SEE LABEL COMMENTS; Start at 16:30 Aspirin (Aspirin Chew) 81 mg DAILY CHEW Last administered on 12/20/16 09:56; Start 12/15/16 at 09:00 Cholecalciferol (Vitamin D3) 1,000 units DAILY PO Last administered on 10:11; Start 12/15/16 at 09:00 Levothyroxine Sodium (Synthroid) 75 mcg DAILY@06 PO Last administered on 05:17; Start 12/15/16 at 06:00 Metformin HCl (Glucophage) 1,000 mg BID PO Last administered on 12/20/16 09:56 ; Start 12/14/16 at 21:00; Status Hold Metformin HCl (Glucophage) 500 mg DAILY@12 PO Last administered on 12/20/16 12 :17; Start 12/15/16 at 12:00; Status Hold Insulin Aspart (NovoLOG SUPPLEMENTAL SCALE) 1 ACHS SLIDING SCALE SQ Last administered on 12/20/16 20:09; Start 12/14/16 at 21:00 Dextrose (D50w (Vial) Inj) 25 ml UNSCH PRN IV PUSH HYPOGLYCEMIA - SEE COMMENTS ; Start 12/14/16 at 16:45 Glucagon (Glucagon Inj) 1 mg UNSCH PRN OTHER HYPOGLYCEMIA-SEE COMMENTS; Start 12/14/16 at 16:45 Furosemide (Lasix Inj) 40 mg BID@09,18 IV PUSH Last administered on 12/17/16 08:15; Start 12/14/16 at 18:00; Stop 12/17/16 at 10:26; Status DC Potassium Chloride (KCl) 10 meq ONCE ONCE PO ; Start 12/14/16 at 17:15; Stop at 17:44; Status DC Acetaminophen/ Hydrocodone Bitart ([place] 7.5-325 Mg) 1 tab Q6H PRN PO pain 2- 10 Last administered on 12/16/16 05:32; Start 12/14/16 at 17:15 Acetaminophen/ Hydrocodone Bitart 1 tab 1 tab ONCE ONCE PO Last administered on 12/14/16 17:59; Start 12/14/16 at 17:15; Stop 12/14/16 at 17:19; Status DC Diltiazem HCl/ Sodium Chloride (Cardizem Inj/NS Inj) 125 ml @ 0 mls/hr TITRATE IV Last administered on 12/14/16 20:39; Start 12/14/16 at 17:30; Stop at 22:06; Status DC Potassium Chloride (KCl) 20 meq DAILY PO ; Start 12/15/16 at 09:00; Stop at 09:00; Status DC Enoxaparin Sodium (Lovenox Inj) 100 mg Q12H SQ Last administered on 12/15/16 09:01; Start 12/14/16 at 22:00; Stop 12/15/16 at 11:53; Status DC Metoprolol Tartrate (Lopressor) 100 mg Q12H PO Last administered on 12/14/16 22:25; Start 12/14/16 at 22:00; Stop 12/15/16 at 06:59; Status DC Metoprolol Tartrate (Lopressor) 100 mg Q12HR PO Last administered on 12/15/16 09:01; Start 12/15/16 at 09:00; Stop 12/15/16 at 11:51; Status DC Metoprolol Tartrate (Lopressor) 100 mg Q8HR PO Last administered on 12/21/16 05:17; Start 12/15/16 at 14:00 Apixaban 5 mg 5 mg BID PO Last administered on 12/20/16 09:56; Start 12/15/16 at 21:00; Status Hold Amiodarone HCl 900 mg/Dextrose 500 ml @ 0 mls/hr CONTINUOUS IV ; Start 12/15/16 at 13:15; Stop 12/15/16 at 13:20; Status DC Amiodarone HCl/ Dextrose (Cordarone Inj/ D5W ([place]) Inj) 250 ml @ 0 mls/hr CONTINUOUS IV Last administered on 12/15/16 23:19; Start 12/15/16 at 13:30; Stop 12/17/16 at 07:53; Status DC Digoxin (Lanoxin Inj) 0.5 mg ONCE ONCE IV PUSH Last administered on 12/16/16 08:16; Start 12/16/16 at 08:15; Stop 12/16/16 at 08:16; Status DC Digoxin (Lanoxin Inj) 0.25 mg ONCE ONCE IV PUSH Last administered on 10:00; Start 12/16/16 at 10:00; Stop 12/16/16 at 10:01; Status DC Digoxin 0.25 mg 0.25 mg ONCE ONCE IV PUSH Last administered on 12/16/16 13:22 ; Start 12/16/16 at 12:00; Stop 12/16/16 at 12:01; Status DC Piperacillin Sod/ Tazobactam Sod (Zosyn 4.5 Gm Premix) 100 ml @ 200 mls/hr Q6H IV Last administered on 12/21/16 05:17; Start 12/16/16 at 17:00; Stop at 06:00; Status DC Lisinopril (Prinivil) 2.5 mg DAILY PO Last administered on 12/20/16 09:57; Start 12/17/16 at 09:00; Stop 12/20/16 at 13:59; Status DC Amiodarone HCl (Cordarone) 200 mg DAILY PO Last administered on 12/20/16 09:56 ; Start 12/17/16 at 09:00; Stop 12/20/16 at 13:59; Status DC Glimepiride (Amaryl) 1 mg DAILYAC PO Last administered on 12/20/16 09:56; Start 12/17/16 at 10:00; Stop 12/20/16 at 10:00; Status DC Furosemide (Lasix Inj) 80 mg BID@ IV PUSH Last administered on 12/20/16 09:55; Start 12/17/16 at 18:00; Stop 12/20/16 at 13:59; Status DC Furosemide (Lasix Inj) 40 mg ONCE ONCE IV PUSH Last administered on 12/17/16 10:54; Start 12/17/16 at 10:30; Stop 12/17/16 at 10:50; Status DC Iron Sucrose (Venofer Inj) 200 mg ONCE ONCE IV PUSH Last administered on 12:00; Start 12/18/16 at 12:00; Stop 12/18/16 at 12:01; Status DC Digoxin (Lanoxin) 0.25 mg DAILY PO ; Start 12/18/16 at 10:45; Stop 12/18/16 at 10:50; Status DC Digoxin (Lanoxin) 0.25 mg DAILY PO Last administered on 12/20/16 09:56; Start 12/19/16 at 09:00; Stop 12/20/16 at 13:59; Status DC Digoxin (Lanoxin) 0.5 mg ONCE ONCE PO Last administered on 12/18/16 11:29; Start 12/18/16 at 11:00; Stop 12/18/16 at 11:21; Status DC Metolazone (Zaroxolyn) 2.5 mg DAILY PO Last administered on 12/19/16 09:34; Start 12/18/16 at 11:00; Stop 12/19/16 at 12:17; Status DC Metolazone (Zaroxolyn) 5 mg DAILY PO Last administered on 12/21/16 10:12; Start 12/20/16 at 09:00 Metolazone (Zaroxolyn) 2.5 mg ONCE ONCE PO Last administered on 12/19/16 13: 28; Start 12/19/16 at 12:30; Stop 12/19/16 at 12:37; Status DC Digoxin (Lanoxin) 0.25 mg ONCE ONCE PO Last administered on 12/19/16 13:28; Start 12/19/16 at 12:30; Stop 12/19/16 at 12:35; Status DC Digoxin (Lanoxin) 0.5 mg ONCE ONCE PO Last administered on 12/20/16 11:31; Start 12/20/16 at 10:00; Stop 12/20/16 at 10:01; Status DC Glimepiride (Amaryl) 0.5 mg DAILYAC PO Last administered on 12/21/16 10:12; Start 12/21/16 at 08:00 Miscellaneous (Pill Splitter) 1 ea UNSCH PRN OTHER SEE LABEL COMMENTS; Start at 10:15 Amoxicillin/ Clavulanate Potassium (Augmentin) 500 mg Q8HR PO ; Start 12/21/16 at 14:00 Physical Exam General Appearance: No Acute Distress Eyes Eye Exam: Pupils Equal, Pupils Reactive Ears & Nose Ears & Nose Exam: Tympanic Membranes Normal Throat Throat Exam: Oral Mucosa [place] & Moist Neck Neck Exam: Neck Supple, Trachea Midline Pulmonary Resp Exam: Clear Bilaterally, Breath Sounds Equal, Diminished Breath Sounds Cardiology CV Exam: Regular, Normal Sinus Rhythm Gastrointestinal/Abdomen GI Exam: Soft, Non-Tender Integumentary Skin Exam: Warm Extremeties Extremities Exam: Moderate Edema (involving lower extremity, 2+ pitting edema hips .), Pitting Edema Psychiatric Psych Exam: Appropriate Responses Assessment/Plan Discussed Condition With: Patient Problem List: (1) Acute renal insufficiency Plan: Acute component may be related to contrast nephrotoxicity as well as a possible component of cardiorenal syndrome. Chronic kidney disease is suspected secondary to duration of diabetes mellitus, poor control previously. SCr stable. This may be his new baseline Labs reviewed from [facility] from December and January 2015 for which he was seen in the ED but not admitted for same complaints was 0.7. HCV PCR pending. UPCr shows minimal proteinuria. Medications should be adjusted for the patient's estimated GFR if clinically indicated. Avoid agents with significant potential for nephrotoxicity possible including NSAIDs for analgesia, iodine contrast agents. Gadolinium is contraindicated if the GFR is below 30. We'll see patient intermittently. (2) Congestive heart failure Plan: (3) Cardiomyopathy Plan: Deterioration in ejection fraction to 30-35% (4) Chronic respiratory failure with hypercapnia (5) HTN (hypertension) (6) Morbid obesity (7) Diabetes Plan: If the patient's renal indices continue to deteriorate I would recommend discontinuance of metformin for the present as there is a potential development of lactic acidosis in the setting of severe renal insufficiency with metformin which is potentially a serious comorbidity (8) Anemia Plan: s/p Venofer today. Problem Qualifiers (1) Morbid obesity: Qualified Code: E66.01 - Morbid obesity due to excess calories (2) Diabetes: Qualified Code: E11.8 - Type 2 diabetes mellitus with complication, with long- term current use of insulin Delia Reilly MD Dec 21, 2016 11:43 Problem Qualifiers (1) Morbid obesity: Qualified Code: E66.01 - Morbid obesity due to excess calories (2) Diabetes: Qualified Code: E11.8 - Type 2 diabetes mellitus with complication, with long- term current use of insulin Delia Reilly MD Dec 21, 2016 11:43
--- NOTE | 2016-12-21 12:31 | HHI.PR ---
Subjective Remarks Improved further. Less leg edema. No chest pain.Refused Bipap.at HS Output was good .Needs OP sleep study to get CPAP at home. CXR is improving Objective Vital Signs Date Time Temp Pulse Resp B/P Pulse Ox O2 Delivery O2 Flow Rate FiO2 12/21/16 07:00 97.8 69 20 109/45 89 12/21/16 07:00 69 12/21/16 05:59 107 12/21/16 05:00 111 12/21/16 04:28 Nasal Cannula 2.00 12/21/16 04:28 98.2 104 18 141/72 94 12/21/16 04:00 104 12/21/16 03:00 100 12/21/16 02:00 95 12/21/16 01:00 82 12/21/16 00:00 98.2 108 18 100/68 95 12/21/16 00:00 Nasal Cannula 2.00 12/21/16 00:00 98 12/20/16 23:00 85 12/20/16 22:00 84 12/20/16 21:48 BiPAP 12/20/16 21:00 89 12/20/16 20:00 95 12/20/16 20:00 98.6 95 20 111/69 93 12/20/16 20:00 Nasal Cannula 2.00 12/20/16 18:13 96 Nasal Cannula 2.00 12/20/16 18:00 96 12/20/16 17:00 68 12/20/16 16:00 88 12/20/16 15:00 96 Room Air 12/20/16 15:00 98.1 65 20 118/58 96 12/20/16 15:00 80 12/20/16 14:00 116 12/20/16 13:00 132 I/O 12/20/16 12/20/16 12/20/16 12/21/16 12/21/16 12/21/16 07:00 15:00 23:00 07:00 15:00 23:00 Intake Total 680 ml 820 ml 680 ml Output Total 1800 ml 1770 ml 1850 ml Balance -1120 ml -950 ml -1170 ml Intake Oral 480 ml 720 ml 480 ml IV Total 200 ml 100 ml 200 ml Output Urine Total 1800 ml 1770 ml 1850 ml # Bowel Movements 0 0 0 Result Diagram: 2/2063812/21/16638 Objective Remarks GENERAL: This moderately obese middle-aged white male is alert, face is plethoric. HEENT: Head normocephalic. Pupils are reactive. Sclerae were injected. Tongue is moist. Throat is clear. Nasal mucosa clear.. NECK: Supple. No bruits or thyroid enlargement. CHEST: Equal movements with occasional wheezes bilaterally with prolonged expirations.Few basal crackles CARDIAC: Heart sounds with irregular, S1-S2. No murmur. ABDOMEN: Soft, benign. No masses or organomegaly or tenderness. Bowel sounds are active. EXTREMITIES: Edema 1+ with pigmentation of the skin of the lower extremities. Reflexes are 1+. He does move all his extremities and there are no gross motor deficits. Cranial nerves grossly intact. RECTAL: Exam is deferred. Assessment and Plan Assessment and Plan IMPRESSION 1. Chronic respiratory failure. 2. Acute exacerbation of chronic bronchitis. 3. Bibasilar pulmonary infiltrates, probable pulmonary edema with atelectasis. 4. Diabetes mellitus. 5. Hypertension. Plan : 1. Nebs qid , duoneb. 2. PO lasix 40 mg bid. 3. O2 at 2 L. 4. D/C Bipap at HS . Will get home CPAP machine . 5. Cont Antibiotics and switch to PO. 6. 6 min walk test today 7. Will arrange Sleep study as OP. Nieves Nicholas MD Dec 21, 2016 12:31
[2016-12-21] MEDS: AMOXICILLIN/CLAVULANATE K 500 MG TAB PO SCH ×2 (13:44→20:20)
[2016-12-21] MEDS ORDERED: HEPARIN SODIUM - IV 10,000 UNITS/10 ML VIAL ONE (16:55)
[2016-12-21] MEDS ORDERED: ISOPROTERENOL HCL 1 MG/5 ML AMP ONE (16:55)
[2016-12-21] MEDS ORDERED: PROTAMINE SULFATE 50 MG/5 ML VIAL ONE (16:55)
[2016-12-21] MEDS ORDERED: ONDANSETRON HCL 4 MG/2 ML VIAL ONE (16:55)
[2016-12-21] MEDS ORDERED: MIDAZOLAM HCL 2 MG/2 ML VIAL ONE (16:55)
[2016-12-21] MEDS ORDERED: fentaNYL CITRATE 250 MCG/5 ML AMP ONE (16:55)
[2016-12-21] MEDS ORDERED: HEPARIN-D5W INJ 250 ML ONE (16:55)
[2016-12-21 16:58] LABS: BLOOD GAS BASE EXCESS 13.8 mmol/L (-2-2); BLOOD GAS CARBOXYHEMOGLOBIN 1.6 % (0-4); BLOOD GAS HCO3 39 mmol/L (22-26); BLOOD GAS METHEMOGLOBIN 1.1 % (0-2); BLOOD GAS O2 HGB SATURATION 89 % (90-100); BLOOD GAS OXYGEN CONTENT 16.6 Vol % (12.0-20.0); BLOOD GAS PCO2 58 mmHg (38-42); BLOOD GAS PO2 67 mmHg (61-120); BLOOD GAS TOTAL HGB 13.2 G/DL (12.0-16.0); TEMP CORR TO 98.6
[2016-12-21 16:59] LABS: CRITICAL VALUE YES; DRAW SITE RT RADIAL; LITER FLOW 2 L/M; OXYGEN DEVICE NASAL CANNULA
[2016-12-21 17:00] LABS: NUMBER OF ARTERIAL PUNCTURES 1; STAT YES; ULNAR PULSE PRESENT
[2016-12-21] MEDS ORDERED: SODIUM CHLORID 0.9% 500 ML BAG IV ONE (17:01)
[2016-12-21] MEDS ORDERED: PROPOFOL 200 MG/20 ML AMP IV ONE (17:01)
[2016-12-21] MEDS ORDERED: ONDANSETRON HCL 4 MG/2 ML VIAL IV PRN (18:15)
[2016-12-21] MEDS ORDERED: ATROPINE SULFATE 1 MG/ML VIAL IV PRN (18:15)
[2016-12-21] MEDS ORDERED: METOCLOPRAMIDE HCL 10 MG/2 ML VIAL IV PRN (18:15)
[2016-12-21] MEDS ORDERED: oxyCODONE/ACETAMINOPHEN 5 MG/325 MG TAB PO PRN ×2 (18:15)
[2016-12-21] MEDS ORDERED: LIDOCAINE HCL 1% 50 ML VIAL INFIL PRN (18:15)
[2016-12-21] MEDS ORDERED: LORazepam 2 MG/ML VIAL IV PRN (18:15)
[2016-12-21] MEDS ORDERED: SODIUM CHLOR 0.9% 250 ML INJ 250 ML IV PRN (18:15)
[2016-12-21] MEDS ORDERED: BACITRACIN OINT 0.9 GM PKT TOP ONE (18:15)
[2016-12-21] MEDS ORDERED: SUGAMMADEX SODIUM 200 MG/2 ML VIAL IV PUSH ONE ×2 (18:48)
[2016-12-22] VITALS (20 sets, daily range): BP systolic 118–132; BP diastolic 53–82; PULSE 77–96; RESP 14–20; TEMP 97.7–99.1; O2SAT 76–96
[2016-12-22] MEDS: APIXABAN 5 MG TABLET PO SCH ×2 (00:59→09:28)
[2016-12-22 06:31] LABS: APTT (PATIENT) 27.1 SEC (24.3-30.1); INTERNATIONAL NORMALIZED RATIO 1.1 RATIO; PROTHROMBIN TIME - PATIENT 11.9 SEC (9.8-11.6)
[2016-12-22] MEDS: AMOXICILLIN/CLAVULANATE K 500 MG TAB PO SCH ×2 (06:45→13:08)
[2016-12-22] MEDS: GLIMEPIRIDE 1 MG TAB PO SCH (06:46)
[2016-12-22] MEDS: LEVOTHYROXINE SODIUM 75 MCG TAB PO SCH (06:46)
[2016-12-22] MEDS: INSULIN ASPART SUPPLEMENTAL SCALE SQ SCH ×2 (06:49→13:08)
[2016-12-22 06:51] LABS: BICARBONATE 40.3 MEQ/L (21.0-32.0); POTASSIUM 4.1 MEQ/L (3.5-5.1)
--- NOTE | 2016-12-22 07:43 | HHI.PR ---
Subjective Remarks pt refusing to stay any longer. Objective Vitals lying in bed some chronic brawny skin over the lower ext's. not red or hot. Vital Signs Date Time Temp Pulse Resp B/P Pulse Ox O2 Delivery O2 Flow Rate FiO2 12/22/16 06:04 76 Nasal Cannula 5.00 12/22/16 04:16 98.1 89 14 132/53 95 12/22/16 04:00 86 12/22/16 03:28 94 Nasal Cannula 4.00 12/22/16 03:00 83 12/22/16 02:00 82 12/22/16 01:00 82 12/22/16 00:21 93 Nasal Cannula 2.00 12/22/16 00:14 97.7 84 14 131/82 96 12/22/16 00:00 86 12/21/16 23:00 85 12/21/16 22:00 84 12/21/16 21:00 90 12/21/16 20:43 94 Nasal Cannula 3.00 12/21/16 20:23 97.7 89 14 127/75 90 12/21/16 20:00 90 12/21/16 19:25 86 16 94 Nasal Cannula 3 12/21/16 19:15 84 16 137/86 93 Nasal Cannula 3 12/21/16 19:13 Nasal Cannula 2 12/21/16 19:00 91 12/21/16 19:00 86 18 145/74 97 Mechanical Ventilator 6 Simple Mask 12/21/16 18:55 97 Mask 10 12/21/16 18:45 95 60 12/21/16 18:45 98.7 85 18 125/79 96 Mechanical Ventilator 80 12/21/16 16:30 94 Nasal Cannula 2.00 12/21/16 16:00 87 12/21/16 15:00 86 12/21/16 14:00 88 12/21/16 13:46 93 21 12/21/16 13:00 94 12/21/16 12:00 88 12/21/16 11:00 94 Nasal Cannula 2.00 12/21/16 11:00 88 12/21/16 11:00 97.8 66 20 142/69 94 12/21/16 10:00 102 12/21/16 09:00 84 12/21/16 08:00 90 12/21/16 12/21/16 12/22/16 15:00 23:00 07:00 Intake Total 690 ml 900 ml Output Total 0 ml 400 ml Balance 690 ml 500 ml Intake Oral 240 ml 480 ml IV Total 420 ml Other 450 ml Output Urine Total 400 ml Estimated Blood Loss 0 ml Other 0 ml # Voids 5 # Bowel Movements 0 0 Result Diagram: 12/21/16 0639 12/22/16 0535 Imaging Last Impressions Chest X-Ray 12/18/16 0600 Signed Impressions: Service Date/Time: Sunday, December 18, 2016 05:39 - CONCLUSION: Cardiomegaly. No acute cardiopulmonary disease. Garrett Pickard MD Renal Ultrasound 12/16/16 0000 Signed Impressions: Service Date/Time: Friday, December 16, 2016 16:23 - CONCLUSION: No acute disease. Rogerio Wayne MD CT Angiography 12/14/16 1449 Signed Impressions: Service Date/Time: Wednesday, December 14, 2016 15:43 - CONCLUSION: 1. No pulmonary embolus is identified. 2. 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 3. There are some small subcarinal and pretracheal nodes. There is a node in the pretracheal goldie chain measuring 2.5 x [address] scan in 6 months to ensure stability would be warranted. Marin Appiah MD Lower Extremity Ultrasound 12/14/16 0000 Signed Impressions: Service Date/Time: Wednesday, December 14, 2016 12:18 - CONCLUSION: 1. Diffuse soft tissue swelling. 2. Unable to compress the mid and distal portions of the superficial femoral vein due to regional soft tissue swelling and discomfort. No echogenic clot and normal Doppler flow identified, however. No sonographic or Doppler findings of deep venous thrombosis. Tony Roach MD A/P Problem List: (1) Cellulitis of right leg Status: Acute Plan: - Pt with several days of worsening RLE edema, erythema, pain and subjective fevers/chills. - Pt admitted under SIRS sepsis criteria with tachycardia, leukocytosis (16,000) - Pt was given a dose of IV Zosyn in the ER and 4L of IVF - Pt has reportedly been homeless for a couple of weeks and has been staying in a car or staying at [facility] (12/14) --> Diffuse soft tissue swelling. Unable to compress the mid and distal portions of the superficial femoral vein due to regional soft tissue swelling and discomfort. No echogenic clot and normal Doppler flow identified, however. No sonographic or Doppler findings of deep venous thrombosis. - CTA (12/14) --> No pulmonary embolus is identified. Patchy areas of ground- glass infiltrate throughout predominantly the lower lobes most suggestive of an extrinsic allergic alveolitis. There are some small subcarinal and pretracheal nodes. There is a node in the pretracheal goldie chain measuring 2.5 x 1.[address] scan in 6 months to ensure stability would be warranted. -converted iv to po abx - iv lasix stopped by cardiology pt refusing to stay any longer. s/p eps and ablation of aflutter.. needs home o2 for hypoxia. renal function worsening but pt refuses to stay any longer. he is noncompliant and has poor prognosis. At this point he says that he is "tired" of people "nagging" him over cpap...he will not use it...referral planned per pulmonary for sleep study. (2) Atrial flutter with rapid ventricular response Status: Acute Plan: see above (3) Acute renal insufficiency Status: Acute Plan: - Creatinine 1.58 (12/20/16), so starting to trend back upwards -- Cogmt with Nephrology, appreciate input from Dr. Reilly - likely d/t IV diuresis, underlying CKD, and possibly contrast nephropathy with recent CTA (12/14/16) - US Kidneys, ureters, bladder (12/16/16) --> NO acute findings iv diuretic held per cardiology still rising to 1.8. pt refused to stay. have him f/u with his pcp and renal. (4) Chronic respiratory failure with hypercapnia Status: Acute Plan: - comgmt with Dr. Nicholas, Pulm Medicine - start Bipap at night 14/6 at 28%FiO2 - pt has previously been unable to tolerate "Bipap - I asked nursing/pt to make sure that respiratory bring Bipap this evening and another attempt at Bipap is made. - duonebs - PFTs (5) Alveolitis, allergic (extrinsic) Status: Acute Plan: - CTA chest (12/13/16) 1. No pulmonary embolus is identified. 2. 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 3. There are some small subcarinal and pretracheal nodes. There is a node in the pretracheal goldie chain measuring 2.5 x 1.[address] scan in 6 months to ensure stability would be warranted - requiring 3L NC - Pt works at [employer] facility (6) Diabetes Status: Chronic Plan: - currently stable - Poorly controlled - Hgb A1C 9.7% in 11/2016 - Metformin 1000mg BID and 500mg at noon - NovoLog SSI - resume Amaryl at 1mg BID --> decrease to 0.5mg BID - Accu checks (7) HTN (hypertension) Status: Chronic Plan: - Pt normally takes Enalapril 20mg po BID and Norvasc 10mg po daily. - Hold home BP meds - metoprolol 100mg TID - lisinopril 2.5mg daily (started 12/17/16) (8) Diastolic dysfunction Status: Chronic Plan: - Last 2D echo in 2014 noted diastolic dysfunction - See above. (9) Chronic edema Status: Chronic Plan: - See above. (10) Hypothyroidism Status: Chronic Plan: - Cont. home meds (11) Tobacco abuse Status: Chronic Plan: - Discussed tobacco cessation - Offered the pt a Nicotine patch which he declined for now. (12) Morbid obesity Status: Acute Plan: - after discharge, pt will need to work on weight loss - recommend f/u with [facility] insole lip turner after discharge (13) TRE (obstructive sleep apnea) Status: Acute Plan: - strongly suspect that pt has undiagnosed TRE based on history of wake time somnolence and body habitus - pt will need outpt sleep study for TRE after discharge Problem Qualifiers (1) Diabetes: Qualified Code: E11.8 - Type 2 diabetes mellitus with complication, with long- term current use of insulin (2) Morbid obesity: Qualified Code: E66.01 - Morbid obesity due to excess calories Ranjan Lozano MD Dec 22, 2016 07:43
[2016-12-22] MEDS ORDERED: AUGM500T7 PO (07:48)
[2016-12-22] MEDS ORDERED: METO-338 PO (07:48)
[2016-12-22] MEDS ORDERED: APIX5TAB PO (07:48)
[2016-12-22] MEDS ORDERED: ALDA50TA2 PO (07:57)
[2016-12-22] MEDS ORDERED: FURO1TAB60 PO ×2 (07:57)
--- NOTE | 2016-12-22 07:57 | HHI.DCPOC ---
Discharge Care Plan Diagnosis: (1) Cellulitis of right leg (2) Chronic respiratory failure (3) Congestive heart failure (4) Atrial flutter with rapid ventricular response (5) Acute renal insufficiency (6) TRE (obstructive sleep apnea) (7) HTN (hypertension) (8) Hypothyroidism (9) Diabetes Goals to Promote Your Health * To prevent worsening of your condition and complications * To maintain your health at the optimal level Directions to Meet Your Goals Take your medications as prescribed Follow your dietary instruction Follow activity as directed Keep your appointments as scheduled Take your immunizations and boosters as scheduled If your symptoms worsen call your PCP, if no PCP go to Urgent Care Center or Emergency Room Smoking is Dangerous to Your Health. Avoid second hand smoke Call the 24-hour hour crisis hotline for domestic abuse at Ranjan Lozano MD Dec 22, 2016 07:57
[2016-12-22] MEDS ORDERED: OXYGENTANK NAS.CANULA (08:00)
[2016-12-22] MEDS ORDERED: METOPROLOL TARTRATE 100 MG TAB PO SCH (09:00)
[2016-12-22] MEDS: SODIUM CHLORIDE 0.9% FLUSH 5 ML FLUSH FLUSH SCH (09:28)
[2016-12-22] MEDS: CHOLECALCIFEROL (VIT D3) 1000 UNIT TAB PO SCH (09:28)
[2016-12-22] MEDS: ASPIRIN 81 MG CHEW TAB CHEW SCH (09:28)
--- NOTE | 2016-12-22 10:08 | PD.CARD.PN ---
Subjective Subjective Remarks Feels better. Objective Medications Current Medications Medications (Trade) Dose Ordered Sig/Kennedy Route Start Time Stop Time Status Last Admin (NS Flush) 2 ml UNSCH PRN FLUSH 12/14/16 16:30 (NS Flush) 2 ml BID FLUSH 12/14/16 21:00 12/22/16 09:28 (Tylenol) 650 mg Q4H PRN PO 12/14/16 16:30 (Zofran Inj) 4 mg Q6H PRN IVP 12/14/16 16:30 (Dulcolax Supp) 10 mg DAILY PRN CO 12/14/16 16:30 (Milk Of Magnyvette Liq) 30 ml Q12H PRN PO 12/14/16 16:30 (Narcan Inj) 0.4 mg UNSCH PRN IV 12/14/16 16:30 (Aspirin Chew) 81 mg DAILY CHEW 12/15/16 09:00 12/22/16 09:28 (Vitamin D3) 1,000 units DAILY PO 12/15/16 09:00 12/22/16 09:28 (Synthroid) 75 mcg DAILY@06 PO 12/15/16 06:00 12/22/16 06:46 (Glucophage) 1,000 mg BID PO 12/14/16 21:00 Hold 12/20/16 09:56 (Glucophage) 500 mg DAILY@12 PO 12/15/16 12:00 Hold 12/20/16 12:17 (D50w (Vial) Inj) 25 ml UNSCH PRN IV PUSH 12/14/16 16:45 (Glucagon Inj) 1 mg UNSCH PRN OTHER 12/14/16 16:45 ([place] 7.5-325 Mg) 1 tab Q6H PRN PO 12/14/16 17:15 12/16/16 05:32 (Eliquis) 5 mg BID PO 12/15/16 21:00 12/22/16 09:28 (Amaryl) 0.5 mg DAILYAC PO 12/21/16 08:00 12/22/16 06:46 (Pill Splitter) 1 ea UNSCH PRN OTHER 12/20/16 10:15 (Augmentin) 500 mg Q8HR PO 12/21/16 14:00 12/22/16 06:45 (Percocet 5-325 Mg) 1 tab Q4H PRN PO 12/21/16 18:15 (Percocet 5-325 Mg) 2 tab Q4H PRN PO 12/21/16 18:15 12/21/16 20:17 (Ativan Inj) 0.5 mg UNSCH PRN IV 12/21/16 18:15 12/22/16 18:14 Atropine Sulfate 0.5 mg 0.5 mg UNSCH PRN IV 12/21/16 18:15 (NS 250 ml Inj) 250 ml @ 500 mls/hr ONCE PRN IV 12/21/16 18:15 12/22/16 18:14 (Reglan Inj) 10 mg Q4H PRN IV 12/21/16 18:15 (Zofran Inj) 4 mg Q4H PRN IV 12/21/16 18:15 (Xylocaine 1% Inj (50 ml)) 10 ml UNSCH PRN INFIL 12/21/16 18:15 12/22/16 18:14 (Lopressor) 100 mg BID PO 12/22/16 09:00 12/22/16 09:28 Vital Signs / I&O Vital Signs Date Time Temp Pulse Resp B/P Pulse Ox O2 Delivery O2 Flow Rate FiO2 12/22/16 07:00 98.7 96 20 118/72 83 12/22/16 06:04 76 Nasal Cannula 5.00 12/22/16 06:00 86 12/22/16 05:00 89 12/22/16 04:16 98.1 89 14 132/53 95 12/22/16 04:00 86 12/22/16 03:28 94 Nasal Cannula 4.00 12/22/16 03:00 83 12/22/16 02:00 82 12/22/16 01:00 82 12/22/16 00:21 93 Nasal Cannula 2.00 12/22/16 00:14 97.7 84 14 131/82 96 12/22/16 00:00 86 12/21/16 23:00 85 12/21/16 22:00 84 12/21/16 21:00 90 12/21/16 20:43 94 Nasal Cannula 3.00 12/21/16 20:23 97.7 89 14 127/75 90 12/21/16 20:00 90 12/21/16 19:25 86 16 94 Nasal Cannula 3 12/21/16 19:15 84 16 137/86 93 Nasal Cannula 3 12/21/16 19:13 Nasal Cannula 2 12/21/16 19:00 91 12/21/16 19:00 86 18 145/74 97 Mechanical Ventilator 6 Simple Mask 12/21/16 18:55 97 Mask 10 12/21/16 18:45 95 60 12/21/16 18:45 98.7 85 18 125/79 96 Mechanical Ventilator 80 12/21/16 16:30 94 Nasal Cannula 2.00 12/21/16 16:00 87 12/21/16 15:00 86 12/21/16 14:00 88 12/21/16 13:46 93 21 12/21/16 13:00 94 12/21/16 12:00 88 12/21/16 11:00 94 Nasal Cannula 2.00 12/21/16 11:00 88 12/21/16 11:00 97.8 66 20 142/69 94 I/O 12/21/16 12/21/16 12/21/16 12/22/16 12/22/16 12/22/16 07:00 15:00 23:00 07:00 15:00 23:00 Intake Total 680 ml 690 ml 900 ml Output Total 1850 ml 0 ml 400 ml Balance -1170 ml 690 ml 500 ml Intake Oral 480 ml 240 ml 480 ml IV Total 200 ml 420 ml Other 450 ml Output Urine Total 1850 ml 400 ml Estimated Blood Loss 0 ml Other 0 ml # Voids 5 # Bowel Movements 0 0 0 Physical Exam GENERAL: Well-nourished, well-developed patient. SKIN: Warm and dry. Groin sites stable. HEAD: Normocephalic. EYES: No scleral icterus. No injection or drainage. NECK: Supple, trachea midline. No JVD or lymphadenopathy. CARDIOVASCULAR: Regular rate and rhythm without murmurs, gallops, or rubs. RESPIRATORY: Breath sounds equal bilaterally. No accessory muscle use. GASTROINTESTINAL: Abdomen soft, non-tender, nondistended. EXTREMITIES: No cyanosis. NEUROLOGICAL: Awake, alert, and oriented x 3. Non-focal. Laboratory Laboratory Tests Test 12/21/16 12/22/16 16:51 05:35 Blood Gas Puncture Site RT RADIAL Blood Gas Patient Temperature 98.6 Blood Gas HCO3 39 mmol/L Blood Gas Base Excess 13.8 mmol/L Blood Gas Oxygen Saturation 89 % Arterial Blood pH 7.44 Arterial Blood Partial 58 mmHg Pressure CO2 Arterial Blood Partial 67 mmHg Pressure O2 Arterial Blood Oxygen Content 16.6 Vol % Arterial Blood 1.6 % Carboxyhemoglobin Arterial Blood Methemoglobin 1.1 % Blood Gas Hemoglobin 13.2 G/DL Oxygen Delivery Device NASAL CANNULA Blood Gas Liter Flow 2 L/M Prothrombin Time 11.9 SEC Prothromb Time International 1.1 RATIO Ratio Activated Partial 27.1 SEC Thromboplast Time Sodium Level 140 MEQ/L Potassium Level 4.1 MEQ/L Chloride Level 96 MEQ/L Carbon Dioxide Level 40.3 MEQ/L Anion Gap 4 MEQ/L Blood Urea Nitrogen 32 MG/DL Creatinine 1.80 MG/DL Estimat Glomerular Filtration 40 ML/MIN Rate Random Glucose 104 MG/DL Calcium Level 8.9 MG/DL Imaging Last Impressions Chest X-Ray 12/21/16 0600 Signed Impressions: Service Date/Time: Wednesday, December 21, 2016 04:13 - CONCLUSION: Borderline cardiomegaly. Rogerio Wayne MD Renal Ultrasound 12/16/16 0000 Signed Impressions: Service Date/Time: Friday, December 16, 2016 16:23 - CONCLUSION: No acute disease. Rogerio Wayne MD CT Angiography 12/14/16 1449 Signed Impressions: Service Date/Time: Wednesday, December 14, 2016 15:43 - CONCLUSION: 1. No pulmonary embolus is identified. 2. 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 3. There are some small subcarinal and pretracheal nodes. There is a node in the pretracheal goldie chain measuring 2.5 x 1.[address] scan in 6 months to ensure stability would be warranted. Marin Appiah MD Lower Extremity Ultrasound 12/14/16 0000 Signed Impressions: Service Date/Time: Wednesday, December 14, 2016 12:18 - CONCLUSION: 1. Diffuse soft tissue swelling. 2. Unable to compress the mid and distal portions of the superficial femoral vein due to regional soft tissue swelling and discomfort. No echogenic clot and normal Doppler flow identified, however. No sonographic or Doppler findings of deep venous thrombosis. Tony Roach MD Assessment and Plan Problem List: (1) Cardiomyopathy Assessment and Plan: EF 30-35%. Pt. refusing to stay for continued treatment. Poor compliance. (2) HTN (hypertension) Assessment and Plan: Well controlled on current medications. (3) Atrial flutter with rapid ventricular response Assessment and Plan: In NSR on tele, s/p ablation. Groin sites stable. Eliquis resumed. Assessment and Plan Refusing to stay, compliance with recommended medical treatment is questionable. F/U with Dr. Blackwell in 2 weeks. EP to sign off at this time per my d/w Dr. Blackwell. Problem Qualifiers (1) Cardiomyopathy: Qualified Code: I42.9 - Cardiomyopathy, unspecified type (2) HTN (hypertension): Qualified Code: I10 - Essential hypertension Ivelisse Gamboa Dec 22, 2016 10:08
--- NOTE | 2016-12-22 12:53 | HHI.PR ---
Subjective Remarks Improved further. Some leg edema. No chest pain.Refused Bipap.at HS Output was good .Needs OP sleep study to get CPAP at home. Needs home O2 CXR is improving. Objective Vital Signs Date Time Temp Pulse Resp B/P Pulse Ox O2 Delivery O2 Flow Rate FiO2 12/22/16 11:59 93 Nasal Cannula 2.00 12/22/16 11:27 99.1 82 18 130/80 94 12/22/16 11:08 77 12/22/16 10:05 81 12/22/16 09:02 92 12/22/16 08:05 92 12/22/16 07:02 77 12/22/16 07:00 98.7 96 20 118/72 83 12/22/16 06:04 76 Nasal Cannula 5.00 12/22/16 06:00 86 12/22/16 05:00 89 12/22/16 04:16 98.1 89 14 132/53 95 12/22/16 04:00 86 12/22/16 03:28 94 Nasal Cannula 4.00 12/22/16 03:00 83 12/22/16 02:00 82 12/22/16 01:00 82 12/22/16 00:21 93 Nasal Cannula 2.00 12/22/16 00:14 97.7 84 14 131/82 96 12/22/16 00:00 86 12/21/16 23:00 85 12/21/16 22:00 84 12/21/16 21:00 90 12/21/16 20:43 94 Nasal Cannula 3.00 12/21/16 20:23 97.7 89 14 127/75 90 12/21/16 20:00 90 12/21/16 19:25 86 16 94 Nasal Cannula 3 12/21/16 19:15 84 16 137/86 93 Nasal Cannula 3 12/21/16 19:13 Nasal Cannula 2 12/21/16 19:00 91 12/21/16 19:00 86 18 145/74 97 Mechanical Ventilator 6 Simple Mask 12/21/16 18:55 97 Mask 10 12/21/16 18:45 95 60 12/21/16 18:45 98.7 85 18 125/79 96 Mechanical Ventilator 80 12/21/16 16:30 94 Nasal Cannula 2.00 12/21/16 16:00 87 12/21/16 15:00 86 12/21/16 14:00 88 12/21/16 13:46 93 21 12/21/16 13:00 94 I/O 12/21/16 12/21/16 12/21/16 12/22/16 12/22/16 12/22/16 07:00 15:00 23:00 07:00 15:00 23:00 Intake Total 680 ml 690 ml 900 ml Output Total 1850 ml 0 ml 400 ml Balance -1170 ml 690 ml 500 ml Intake Oral 480 ml 240 ml 480 ml IV Total 200 ml 420 ml Other 450 ml Output Urine Total 1850 ml 400 ml Estimated Blood Loss 0 ml Other 0 ml # Voids 5 # Bowel Movements 0 0 0 Result Diagram: 12/21/16 0639 12/22/16 0535 Objective Remarks GENERAL: This moderately obese middle-aged white male is alert, face is plethoric. HEENT: Head normocephalic. Pupils are reactive. Sclerae were injected. Tongue is moist. Throat is clear. Nasal mucosa clear.. NECK: Supple. No bruits or thyroid enlargement. CHEST: Equal movements with occasional wheezes bilaterally with prolonged expirations. Occ basal crackles CARDIAC: Heart sounds with irregular, S1-S2. No murmur. ABDOMEN: Soft, benign. No masses or organomegaly or tenderness. Bowel sounds are active. EXTREMITIES: Edema 1+ with pigmentation of the skin of the lower extremities. Reflexes are 1+. He does move all his extremities and there are no gross motor deficits. RECTAL: Exam is deferred. Assessment and Plan Assessment and Plan IMPRESSION 1. Chronic respiratory failure. 2. Acute exacerbation of chronic bronchitis. 3. Bibasilar pulmonary infiltrates, probable pulmonary edema with atelectasis. 4. Diabetes mellitus. 5. Hypertension. Plan : 1. Nebs qid , duoneb. 2. PO lasix 40 mg bid. 3. O2 at 2 L. 4. Home per Dr Lozano 5. Cont Antibiotics PO for 5 days. 6. 6 min walk test today 7. Will arrange Sleep study as OP. Nieves Nicholas MD Dec 22, 2016 12:53
--- NOTE | 2016-12-22 16:36 | EKG ---
Date Performed: 12/21/2016 Time Performed: 19:07:26 PTAGE: 51 years EKG: Sinus rhythm WITH OCCASIONAL VENTRICULAR PREMATURE COMPLEXES NONSPECIFIC ST & T-WAVE ABNORMALITY Compared to prio r tracing patient is now in normal sinus rhyth. BORDERLINE ECG PREVIOUS TRACING : 12/14/2016 14.43 DOCTOR: John Sorensen Interpretating Date/Time 12/22/2016 16:35:27
--- NOTE | 2016-12-22 16:39 | EKG ---
Date Performed: 12/22/2016 Time Performed: 06:14:08 PTAGE: 51 years EKG: Sinus rhythm Ant/septal and lateral ST-T changes are nonspecific Consider anterolateral ischemia. Borderline ECG NO PREVIOUS TRACING DOCTOR: John Sorensen Interpretating Date/Time 12/22/2016 16:38:13
--- NOTE | 2016-12-29 11:11 | MA ---
cc: ROMEL KENDALL (. ABHILASH PAZ M.D. DATE 12/21/2016 PROCEDURE PERFORMED Electrophysiology study, CS cannulation, 3-D mapping, radiofrequency ablation of atrial flutter, repeat electrophysiology study on Isuprel infusion. INDICATIONS Mr. Matthews is a 51-year-old gentleman with atrial flutter, unable to control with medication, referred for electrophysiology study and ablation. The risks, the nature and the benefit of the procedure are clearly stated to him. The risks include pneumothorax, cardiac perforation, stroke and even . The patient understood and agreed to proceed. PROCEDURE After written informed consent was obtained, the patient was brought to the EP Lab where he was prepped and draped in the usual sterile fashion. Conscious sedation was initiated and maintained throughout the procedure by the anesthesiologist. Once sedation was verified, the left and right inguinal area was anesthetized with 2% Xylocaine. Using modified Seldinger technique, the left femoral vein was cannulated on three occasions and three guidewires were advanced over the wire, three 5-Kazakh Hemaquets were advanced. Then the right femoral vein was cannulated on two occasions. Two guidewires were advanced over the wire, a 6 and an 8-Kazakh Hemaquet were advanced. Then under fluoroscopic guidance through the 5 and 6-Kazakh Hemaquet, four 5-Kazakh Danyell curved quadripolar electrophysiology catheters were advanced and placed on the His, upper right atrium, coronary sinus and right ventricular apex. The patient was in atrial flutter. Entrainment was performed; it was positive. Then through the 8-Kazakh Hemaquet, a Cordis March F-curve 8-mm mapping and radiofrequency ablation catheter was advanced. Using EnSite endocardial solution mapping system a three-dimensional configuration of the right atrium was obtained. Then the catheter was placed at the critical isthmus. Radiofrequency energy was delivered. During ablation cycle length was prolonged and subsequently converted into sinus rhythm. Further burn was delivered in the area. Then atrial pacing protocol was performed from the coronary sinus. No tachyarrhythmia was induced. Ventricular pacing protocol was performed. No tachyarrhythmia was induced. Then Isuprel infusion was initiated at 10 mcg. No tachyarrhythmia was induced, pause during Isuprel infusion. At that point the procedure was complete. All catheters were removed. The patient is going to be transferred to the recovery room. No incident reported. The patient tolerated the procedure. Blood loss minimal. 1. Electrocardiogram: At baseline the patient was in atrial flutter. Postprocedure the patient is in sinus rhythm. 2. Basic Interval: Base cycle length was around 480 milliseconds. Post-ablation it was at 900 milliseconds. 3. Tachyarrhythmia: Atrial flutter was mapped and entrained and ablated. Ablation was successful. CONCLUSION Successful electrophysiology study, mapping and radiofrequency ablation of atrial flutter, COMMENT AND RECOMMENDATIONS The patient is going to be transferred to the telemetry unit. He will be observed and when stable can be discharged home. MD ZECHARIAH Ovalles/SSB /10:30 AM /10:57 AM
--- NOTE | 2017-01-07 16:52 | PQ ---
Physician Query Response Document PATIENT: TIA OLMEDO : 1965 ADMIT DATE: 12/14/2016 4:36 PM DISCH DATE: 12/22/2016 2:00 PM RESPONDING PROVIDER #: Rbraithw QUERY TEXT: Sepsis Query Based on your medical judgement, can you further clarify the folowiin. Sepsis (SIRS due to an infection) 2. Sepsis with Organ Dysfunction 3. A localized Infection only 4. Another condition - please specify 5. Unable to determine - please explain. Depending on your selection above, please indicate one of the below if applicable: - Sepsis was present on Admission - Sepsis developed after admission Your prompt response is appreciated, please do not hesitate to contact the CDI/Coding Hotline with an y questions, comments and/or concerns you may have at [phone]. [phone]. The patient's Clinical Indicators include: CELLULITIS RIGH LEG-H ADMITTED UNDER SIRS/SEPSIS CRITERIA OF TACHYCARDIA, LEUKOCYTOSIS (16,000)-H ATRIAL FLUTTER-H IV ANTIBIOTICS STARTED IN ED AND CONTINUED THROUGHOUT STAY TEMP 98.5 IN ED, AFEBRILE THROUGHOUT STAY. RESP RATE RANGED FROM 14-25 12/14, 12/15 B/P 130/80, 112/56, 137/62-12/14 ED. PT WITH DIAGNOSED HYPERTENSION BLOOD CULTURES NEGATIVE Query created by: Lary Patel on 12/25/2016 8:55 AM RESPONSE TEXT: Provider disagreed with this CDI query. Electronically signed by: Ranjan Lozano MD 01/07/2017 4:48 PM
--- NOTE | 2017-01-28 20:15 | HHI.DS ---
Discharge Summary Admission Date Dec 14, 2016 at 16:36 Discharge Date: Dec 22, 2016 Admitting Diagnosis Cellulitis (1) Cellulitis of right leg Diagnosis: Principal (2) Atrial flutter with rapid ventricular response Diagnosis: Principal (3) Acute renal insufficiency Diagnosis: Principal (4) Chronic respiratory failure with hypercapnia Diagnosis: Principal (5) Alveolitis, allergic (extrinsic) Diagnosis: Principal (6) Diabetes Diagnosis: Secondary (7) HTN (hypertension) Diagnosis: Secondary (8) Diastolic dysfunction Diagnosis: Secondary (9) Chronic edema Diagnosis: Secondary (10) Hypothyroidism Diagnosis: Secondary (11) Tobacco abuse Diagnosis: Secondary (12) Morbid obesity Diagnosis: Secondary (13) TRE (obstructive sleep apnea) Diagnosis: Secondary Brief History Mr. Matthews is a pleasant 51 y/o WM with poorly controlled diabetes, HTN, hx of atrial flutter, chronic LE edema, diastolic dysfunction, hypothyroidism and morbid obesity. Pt presented to the ED at [facility] on 12/14/16 with complaints of worsening pain, erythema, swelling and subjective fevers x 2-3 days. He states that he has chronic LE edema and takes Lasix 80mg in AM and 40mg in PM and Aldactone chronically. More recently he has noted increased redness in the RLE and this has worsened over the last 2-3 days. He has been having subjective fevers and chills. He has had increased pain in the RLE and difficulty with ambulating. Pt was given a dose of IV Zosyn in the ER. He has also been given 4L of NS. He denies any current chest pain or SOB. Pt was noted to be tachycardic at the time of admission and his EKG was interpreted as atrial flutter with RVR. He has an outpt EKG from 2016 which also indicated A. flutter with RVR. Pt states that he has had issues with periodically elevated HR since last year. He was given a Cardizem bolus in the ED. Currently his HR is still in the 150's but appears to be regular on telemetry. He is not on any BB as an outpt. Pt does take Enalapril and Norvasc. Pt is also has IDDM with his last Hgb A1C being 9.7%. He states that he is compliant with all his medications. Pt is morbidly obese and smokes 3/4 ppd x 30 years. Hospital Course - Pt with several days of worsening RLE edema, erythema, pain and subjective fevers/chills. - Pt admitted under SIRS sepsis criteria with tachycardia, leukocytosis (16,000) - Pt was given a dose of IV Zosyn in the ER and 4L of IVF - Pt has reportedly been homeless for a couple of weeks and has been staying in a car or staying at [facility] (12/14) --> Diffuse soft tissue swelling. Unable to compress the mid and distal portions of the superficial femoral vein due to regional soft tissue swelling and discomfort. No echogenic clot and normal Doppler flow identified, however. No sonographic or Doppler findings of deep venous thrombosis. - CTA (12/14) --> No pulmonary embolus is identified. Patchy areas of ground- glass infiltrate throughout predominantly the lower lobes most suggestive of an extrinsic allergic alveolitis. There are some small subcarinal and pretracheal nodes. There is a node in the pretracheal goldie chain measuring 2.5 x 1.[address] scan in 6 months to ensure stability would be warranted. -converted iv to po abx for d/c - iv lasix stopped by cardiology -pt refusing to stay any longer. s/p eps and ablation of aflutter.. needs home o2 for hypoxia. renal function worsening but pt refuses to stay any longer. he is noncompliant and has poor prognosis. At this point he says that he is "tired" of people "nagging" him over cpap...he will not use it...referral planned per pulmonary for sleep study. - Creatinine starting to trend back upwards -- Cogmt with Nephrology, appreciate input from Dr. Reilly - likely d/t IV diuresis, underlying CKD, and possibly contrast nephropathy with recent CTA (12/14/16) - US Kidneys, ureters, bladder (12/16/16) --> NO acute findings --iv diuretic held per cardiology --still rising to 1.8. pt refused to stay. have him f/u with his pcp and renal. - CTA chest (12/13/16) 1. No pulmonary embolus is identified. 2. 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 3. There are some small subcarinal and pretracheal nodes. There is a node in the pretracheal goldie chain measuring 2.5 x 1.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 Pt was not medically opitmized at the time of his discharge. Pt Condition on Discharge: Guarded Discharge Disposition: Discharge Home Discharge Instructions DIET: Follow Instructions for: Diabetic Diet Activities you can perform: Regular-No Restrictions Follow up Referrals: Cardiology - [address] campos Nephrology - [address] Reilly PCP Follow-up - [address] declan murrell Pulmonology - 1 Week with Nieves Nicholas MD New Medications: Oxygen tank (Oxygen tank) 1 Ea Tank 2 LITER OLIVIA.CANULA CONTINUOUS Oxygen Concentrator Portable Gaseous 2 L/min via Nasal Cannula Continuous For 99 months HYPOXEMIA PREVENTION #2 CYLINDER Amoxicillin-Clavulanate (Augmentin) 500-125 mg Tab 500 MG PO Q8HR Infection Days 2 TAB Apixaban (Eliquis) 5 Mg Tab 5 MG PO BID aflutter Days 30 TAB Metoprolol Tartrate (Lopressor) 100 Mg Tab 100 MG PO BID aflutter #60 TAB Changed Medications: Spironolactone (Aldactone) 50 Mg Tab 50 MG PO DAILY resume in 3 days swelling #0 Ref 0 TAB (Changed from: 30) Continued Medications: Cholecalciferol (Vitamin D3) 1,000 Unit Tab 1000 UNITS PO DAILY Nutritional Supplement #1 Ref 0 BOTTLE Furosemide (Lasix) 40 Mg Tab 80 MG PO DAILY IN THE AM swelling #0 Ref 0 TAB (This prescription has been renewed) Furosemide (Lasix) 40 Mg Tab 40 MG PO DAILY IN THE PM swelling #0 Ref 0 TAB (This prescription has been renewed) Insulin Human Isophane-Regular 70-30 Inj (Novolin 70-30 Inj) 1,000 Unit/10 Ml Vial 85 UNITS SQ BID Blood Sugar Management Ref 0 ML Levothyroxine (Levothyroxine) 75 Mcg Tab 75 MCG PO DAILY Thyroid #30 Ref 0 TAB Potassium Chloride ER (K-Tab) 10 Meq Tab 10 MEQ PO DAILY Electrolyte Replacement #30 Ref 0 TAB Discontinued Medications: Amlodipine (Norvasc) 10 Mg Tab 10 MG PO DAILY Blood Pressure Management #30 Ref 0 TAB Aspirin (Aspirin) 81 Mg Chew 81 MG CHEW DAILY Ref 0 TAB Enalapril (Vasotec) 20 Mg Tab 20 MG PO BID #30 Ref 0 TAB Glimepiride (Glimepiride) 4 Mg Tab 8 MG PO DAILY Take with breakfast or first main meal Blood Sugar Management #30 Ref 0 TAB Metformin (Glucophage) 500 Mg Tab 1000 MG PO BID With meals Blood Sugar Management #60 Ref 0 TAB Metformin (Glucophage) 500 Mg Tab 500 MG PO DAILY AT 12NOON With a meal Blood Sugar Management #30 Ref 0 TAB Ranjan Lozano MD Jan 28, 2017 20:15
== END 2016-12-22 14:00 | disposition left against medical advice (07) | DRG 274 ==
LOC: NEPA 11:48 → NEDA 16:36 → NEDH 20:58 → HCIS 12-16 10:49
PROVIDERS: ADMIT Hospitalist; ATTEND Hospitalist
PROC: 02K83ZZ Map Conduction Mechanism, Percutaneous Approach (ICD-10-PCS; 2016-12-21)
PROC: 4A023FZ Measurement of Cardiac Rhythm, Percutaneous Approach (ICD-10-PCS; 2016-12-21)
PROC: 4A0234Z Measurement of Cardiac Electrical Activity, Percutaneous Approach (ICD-10-PCS; 2016-12-21)
PROC: 02583ZZ Destruction of Conduction Mechanism, Percutaneous Approach (ICD-10-PCS; principal; 2016-12-21 15:30)
DX: I48.92 Unspecified atrial flutter (principal); J96.12 Chronic respiratory failure with hypercapnia; I42.9 Cardiomyopathy, unspecified; L03.115 Cellulitis of right lower limb; I13.0 Hypertensive heart and chronic kidney disease with heart failure and stage 1 through stage 4 chronic kidney disease, or unspecified chronic kidney disease; J67.9 Hypersensitivity pneumonitis due to unspecified organic dust; I50.30 Unspecified diastolic (congestive) heart failure; Z68.43 Body mass index [BMI] 50.0-59.9, adult; J98.11 Atelectasis; E11.65 Type 2 diabetes mellitus with hyperglycemia; N18.9 Chronic kidney disease, unspecified; E66.01 Morbid (severe) obesity due to excess calories; E03.9 Hypothyroidism, unspecified; E78.5 Hyperlipidemia, unspecified; I87.8 Other specified disorders of veins; D50.9 Iron deficiency anemia, unspecified; J42 Unspecified chronic bronchitis; J20.9 Acute bronchitis, unspecified; G47.33 Obstructive sleep apnea (adult) (pediatric); E11.22 Type 2 diabetes mellitus with diabetic chronic kidney disease; F12.90 Cannabis use, unspecified, uncomplicated; F17.210 Nicotine dependence, cigarettes, uncomplicated; Z59.0 Homelessness; Z79.4 Long term (current) use of insulin; Z86.73 Personal history of transient ischemic attack (TIA), and cerebral infarction without residual deficits; Z91.19 Patient's noncompliance with other medical treatment and regimen
CPT/HCPCS: 36600; 71010; 71275; 76775; 76937; 80048; 80053; 80069; 80162; 81001; 82306; 82570; 82805; 82948; 83540; 83550; 83605; 83735; 83880; 83883; 83970; 84100; 84156; 84165; 85025; 85610; 85730; 86160; 86335; 86803; 87040; 87205; 87340; 87522; 93005; 93306; 93613; 93623; 93653; 93971; 94002; 94620; 96365; 96375; C1725; C1730; C1732; C1757; C1769; C1874; C1887; C1893; C2630; J0282; J1160; J1644; J1650; J1756; J1815; J1940; J2250; J2405; J2543; J2720; J3010; J7030; J7040; J7060; Q9967

== ENCOUNTER 2018-01-07 15:19 | Observation (INO) | payer OTHER ==
[~2018-01-07] VITALS: Ht 191.8 cm; Wt 184.7 kg
[~2018-01-07 15:19] MED LIST: ALDA50TA2 PO; APIX5TAB PO; AUGM500T7 PO; FURO1TAB60 PO; K-TA10TA PO; LEVO75TA3 PO; METO-338 PO; NOVO7030P2 SQ; OXYGENTANK NAS.CANULA; VITA100018 PO
[2018-01-07 15:29] VITALS: BP 120/54; PULSE 81; RESP 16; TEMP 98.6; O2SAT 96
[2018-01-07 16:47] LABS: AUTOMATED NEUTROPHIL # 9.4 TH/MM3 (1.8-7.7); BASOPHIL # 0.1 TH/MM3 (0-0.2); BASOPHIL % 0.4 % (0.0-2.0); EOSINOPHIL # 0.1 TH/MM3 (0-0.4); EOSINOPHIL % 0.9 % (0.0-4.0); HEMATOCRIT 35.2 % (39.0-51.0); HEMOGLOBIN 11.3 GM/DL (13.0-17.0); LYMPH % 13.3 % (9.0-44.0); LYMPHOCYTE # 1.7 TH/MM3 (1.0-4.8); MEAN CELL VOLUME 86.2 FL (80.0-100.0); MEAN CORPUSCULAR HEMOGLOBIN 27.6 PG (27.0-34.0); MEAN PLATELET VOLUME 8.5 FL (7.0-11.0); MONO % 9.8 % (0.0-8.0); MONOCYTE # 1.2 TH/MM3 (0-0.9); NEUT % 75.6 % (16.0-70.0); PLATELET COUNT 246 TH/MM3 (150-450); RED BLOOD COUNT 4.08 MIL/MM3 (4.50-5.90); RED CELL DISTRIBUTION WIDTH 14.6 % (11.6-17.2); WHITE BLOOD COUNT 12.4 TH/MM3 (4.0-11.0)
[2018-01-07 16:56] LABS: ALBUMIN 3.5 GM/DL (3.4-5.0); ALT (GPT) 29 U/L (12-78); AST (GOT) 13 U/L (15-37); BICARBONATE 26.1 MEQ/L (21.0-32.0); BLOOD UREA NITROGEN 30 MG/DL (7-18); CALCIUM 8.7 MG/DL (8.5-10.1); CHLORIDE 108 MEQ/L (98-107); CREATININE 2.01 MG/DL (0.60-1.30); GLOMERULAR FILTRATION RATE 35 ML/MIN (>89); GLUCOSE,RANDOM 114 MG/DL (74-106); SODIUM (NA) 142 MEQ/L (136-145)
[2018-01-07 16:59] LABS: ALKALINE PHOSPHATASE 74 U/L (45-117); TOTAL BILIRUBIN ADULT 0.4 MG/DL (0.2-1.0); TOTAL PROTEIN 7.9 GM/DL (6.4-8.2)
[2018-01-07 17:00] LABS: LACTIC ACID SEPSIS PROTOCOL 2.7 mmol/L (0.4-2.0)
[2018-01-07] MEDS ORDERED: GLIM4TAB PO (18:51)
[2018-01-07] MEDS ORDERED: AMLO10TA2 PO (18:51)
[2018-01-07] MEDS ORDERED: FURO1TAB60 PO (18:51)
[2018-01-07] MEDS ORDERED: METF1000 PO (18:51)
[2018-01-07] MEDS ORDERED: METF500T PO (18:51)
[2018-01-07] MEDS ORDERED: INSU100V2 SQ (18:51)
[2018-01-07] MEDS ORDERED: ASPI81TA81 PO (18:51)
[2018-01-07] MEDS ORDERED: ENAL20TA PO (18:51)
[2018-01-07] MEDS ORDERED: METO50TA PO (18:52)
[2018-01-07] MEDS ORDERED: PIPERACIL-TAZO 2.25 GM PREMIX 50 ML IV ONE (19:15)
[2018-01-07] MEDS ORDERED: VANCOMYCIN INJ 1,000 MG in SODIUM CHLOR 0.9% 250 ML INJ 250 ML IV ONE (19:15)
[2018-01-07] MEDS ORDERED: SODIUM CHLOR 0.9% 1000 ML INJ 1,000 ML IV SCH (19:30)
--- NOTE | 2018-01-07 19:31 | PD ---
HPI Chief Complaint: Skin Problem Time Seen by Provider: 18:59 Travel History International Travel<30 days: No Contact w/Intl Traveler<30days: No Traveled to known affect area: No History of Present Illness HPI 52-year-old male complains of pain and swelling left lower extremity left ankle left foot. Patient states that the symptoms started 2 days ago. Patient states that he has history of chronic lower extremity edema. Patient states that he had increase in pain and swelling of the left lower extremity including ankle and foot for the past 3 days. Patient denies any fever chills. Patient denies any injury to the area. Patient has history of diabetes, hypertension, atrial flutter, chronic lower extremity edema, diastolic dysfunction, hypothyroidism and morbid obesity. PFSH Past Medical History Cardiovascular Problems: Yes (tachycardia) Diabetes: Yes Patient Takes Glucophage: Yes Genitourinary: No Hypertension: Yes Musculoskeletal: No Neurologic: No Reproductive: No Respiratory: No Tetanus Vaccination: Unknown Influenza Vaccination: Yes Past Surgical History Surgical History: No Previous Surgery Social History Alcohol Use: No Tobacco Use: Yes Substance Use: No Allergies-Medications (Allergen,Severity, Reaction): Coded Allergies: No Known Allergies (Unverified Allergy, Unknown, 01/07/18) Reported Meds & Prescriptions Reported Meds & Active Scripts Active Oxygen tank (Oxygen) 1 Ea Tank 2 Liter OLIVIA.CANULA CONTINUOUS Oxygen Concentrator Portable Gaseous 2 L/min via Nasal Cannula Continuous For 99 months Lasix (Furosemide) 40 Mg Tab 40 Mg PO DAILY IN THE PM Aldactone (Spironolactone) 50 Mg Tab 50 Mg PO DAILY resume in 3 days Reported Metoprolol Tartrate 50 Mg Tab 50 Mg PO BID Glimepiride 4 Mg Tab 4 Mg PO BIDAC Lasix (Furosemide) 40 Mg Tab 40 Mg PO BID Metformin (Metformin HCl) 500 Mg Tab 500 Mg PO AFTERNOON With a meal Metformin (Metformin HCl) 1,000 Mg Tab 1,000 Mg PO BIDPC Humulin R Inj (Insulin Human Regular) 1,000 Unit/10 Ml Vial 100 Units SQ TIDAC Enalapril (Enalapril Maleate) 20 Mg Tab 20 Mg PO DAILY Aspir-81 (Aspirin) 81 Mg Tabdr 1 Tab PO DAILY Amlodipine (Amlodipine Besylate) 10 Mg Tab 10 Mg PO DAILY Levothyroxine (Levothyroxine Sodium) 75 Mcg Tab 75 Mcg PO DAILY Vitamin D3 (Cholecalciferol) 1,000 Unit Tab 1,000 Units PO DAILY K-Tab (Potassium Chloride) 10 Meq Tab 10 Meq PO DAILY Review of Systems General / Constitutional: No: Fever Eyes: No: Visual changes HENT: No: Headaches Cardiovascular: No: Chest Pain or Discomfort Respiratory: No: Shortness of Breath Gastrointestinal: No: Abdominal Pain Genitourinary: No: Dysuria Musculoskeletal: Positive: Edema, Pain Skin: No Rash Neurologic: No: Weakness Psychiatric: No: Depression Endocrine: No: Polydipsia Hematologic/Lymphatic: No: Easy Bruising Physical Exam Narrative GENERAL: Well-nourished, well-developed patient. SKIN: Focused skin assessment warm/dry. HEAD: Normocephalic. EYES: No scleral icterus. No injection or drainage. NECK: Supple, trachea midline. No JVD or lymphadenopathy. CARDIOVASCULAR: Regular rate and rhythm without murmurs, gallops, or rubs. RESPIRATORY: Breath sounds equal bilaterally. No accessory muscle use. GASTROINTESTINAL: Abdomen soft, non-tender, nondistended. MUSCULOSKELETAL: Patient has +2 pitting edema lower extremity. Patient had mild increase in redness swelling tenderness over left ankle and left foot. No tenderness on palpation of the calf area. Negative Homans sign. BACK: Nontender without obvious deformity. No CVA tenderness. Neurologic exam normal. Data Data Last Documented VS Vital Signs Date Time Temp Pulse Resp B/P (MAP) Pulse Ox O2 Delivery O2 Flow Rate FiO2 01/07/18 15:29 98.6 81 16 120/54 (76) 96 Orders Orders Complete Blood Count With Diff (01/07/18 15:31) Comprehensive Metabolic Panel (01/07/18 15:31) Urinalysis - C+S If Indicated (01/07/18 15:31) Lactic Acid Sepsis Protocol (01/07/18 15:31) Blood Culture (01/07/18 15:31) Us Leg Venous Doppler (01/07/18 19:12) Vancomycin Inj (Vancomycin Inj) (01/07/18 19:15) Piperacil-Tazo 2.25 Gm Premix (Zosyn 2.2 (01/07/18 19:15) Labs Laboratory Tests Test 01/07/18 16:15 White Blood Count 12.4 TH/MM3 Red Blood Count 4.08 MIL/MM3 Hemoglobin 11.3 GM/DL Hematocrit 35.2 % Mean Corpuscular Volume 86.2 FL Mean Corpuscular Hemoglobin 27.6 PG Mean Corpuscular Hemoglobin Concent 32.0 % Red Cell Distribution Width 14.6 % Platelet Count 246 TH/MM3 Mean Platelet Volume 8.5 FL Neutrophils (%) (Auto) 75.6 % Lymphocytes (%) (Auto) 13.3 % Monocytes (%) (Auto) 9.8 % Eosinophils (%) (Auto) 0.9 % Basophils (%) (Auto) 0.4 % Neutrophils # (Auto) 9.4 TH/MM3 Lymphocytes # (Auto) 1.7 TH/MM3 Monocytes # (Auto) 1.2 TH/MM3 Eosinophils # (Auto) 0.1 TH/MM3 Basophils # (Auto) 0.1 TH/MM3 CBC Comment DIFF FINAL Differential Comment Blood Urea Nitrogen 30 MG/DL Creatinine 2.01 MG/DL Random Glucose 114 MG/DL Total Protein 7.9 GM/DL Albumin 3.5 GM/DL Calcium Level 8.7 MG/DL Alkaline Phosphatase 74 U/L Aspartate Amino Transf (AST/SGOT) 13 U/L Alanine Aminotransferase (ALT/SGPT) 29 U/L Total Bilirubin 0.4 MG/DL Sodium Level 142 MEQ/L Potassium Level 3.9 MEQ/L Chloride Level 108 MEQ/L Carbon Dioxide Level 26.1 MEQ/L Anion Gap 8 MEQ/L Estimat Glomerular Filtration Rate 35 ML/MIN Lactic Acid Level 2.7 mmol/L [facility] Medical Decision Making Medical Screen Exam Complete: Yes Emergency Medical Condition: Yes Interpretation(s) 1930 p.m. CBC WBC 12.4. Hemoglobin 11.3 hematocrit 35.2. 75 neutrophil. BUN 30. Creatinine 2.01. GFR 35. Lactic acid 2.7. Differential Diagnosis Differential diagnosis including cellulitis, abscess, DVT. Narrative Course 52-year-old male with increasing redness swelling tenderness left foot and left ankle left lower extremity. Normal saline solution 70 cc an hour. Vancomycin 1 g IV. Zosyn 2.25 g IV. Marcio Grier MD Jan 07, 2018 19:31
[2018-01-07] MEDS ORDERED: ACETAMINOPHEN 325 MG TAB PO PRN (20:00)
[2018-01-07] MEDS ORDERED: ONDANSETRON HCL 4 MG/2 ML VIAL IV PUSH PRN (20:00)
[2018-01-07 20:27] VITALS: O2SAT 96
[2018-01-07] MEDS: INSULIN ASPART SUPPLEMENTAL SCALE SQ SCH (21:00)
[2018-01-07 21:36] VITALS: BP 125/75; PULSE 86; RESP 18; TEMP 98.4; O2SAT 93
--- NOTE | 2018-01-07 21:57 | RADRPT ---
EXAM DATE/TIME: 01/07/2018 20:44 [facility] COMPARISON: No previous studies available for comparison. INDICATIONS : Left leg swelling. MEDICAL HISTORY : Hypertension. Diabetes. Tachycardia. SURGICAL HISTORY : None. ENCOUNTER: Initial ACUITY: 3 days PAIN SCORE: 5/10 LOCATION: Left leg. TECHNIQUE: Venous ultrasound of the leg was performed from the inguinal ligament to the proximal calf. Real-juan carlos e, color Doppler and spectral tracing, compression and augmentation techniques were used. FINDINGS: There is normal compressibility of the deep venous system from the inguinal region to the proximal ca lf. No echogenic clot is seen in the lumen of the common femoral, femoral, popliteal, and posterior tibial veins. There is a normal response of the venous system to proximal and distal augmentation an d respiration. CONCLUSION: 1. Negative for left lower extremity deep venous thrombosis. Hollis Deluna MD on January 07, 2018 at 21:55 Board Certified Radiologist. This report was verified electronically.
[2018-01-07] MEDS: FUROSEMIDE 40 MG TAB PO SCH (22:51)
[2018-01-07] MEDS: METOPROLOL TARTRATE 50 MG TAB PO SCH (22:51)
[2018-01-08] VITALS (7 sets, daily range): BP systolic 93–118; BP diastolic 50–65; PULSE 62–90; RESP 18–20; TEMP 97.7–99.1; O2SAT 93–96
[2018-01-08] MEDS: PIPERACIL-TAZO 3.375 GM PREMIX 50 ML IV SCH ×4 (03:05→20:02)
[2018-01-08 05:59] LABS: BASOPHIL % 0.3 % (0.0-2.0); EOSINOPHIL # 0.2 TH/MM3 (0-0.4); EOSINOPHIL % 1.6 % (0.0-4.0); HEMATOCRIT 33.6 % (39.0-51.0); HEMOGLOBIN 11.1 GM/DL (13.0-17.0); LYMPH % 14.7 % (9.0-44.0); LYMPHOCYTE # 1.6 TH/MM3 (1.0-4.8); MEAN CORPUSCULAR HEMOGLOBIN 28.7 PG (27.0-34.0); MEAN PLATELET VOLUME 8.5 FL (7.0-11.0); MONOCYTE # 1.1 TH/MM3 (0-0.9); NEUT % 73.4 % (16.0-70.0); PLATELET COUNT 237 TH/MM3 (150-450); RED BLOOD COUNT 3.86 MIL/MM3 (4.50-5.90); RED CELL DISTRIBUTION WIDTH 14.9 % (11.6-17.2); WHITE BLOOD COUNT 10.9 TH/MM3 (4.0-11.0)
[2018-01-08] MEDS ORDERED: PIPERACIL-TAZO 3.375 GM PREMIX 50 ML IV SCH (06:00)
[2018-01-08 06:22] LABS: BICARBONATE 25.5 MEQ/L (21.0-32.0); CALCIUM 8.2 MG/DL (8.5-10.1); CREATININE 1.88 MG/DL (0.60-1.30)
[2018-01-08] MEDS: LEVOTHYROXINE SODIUM 75 MCG TAB PO SCH (06:42)
[2018-01-08] MEDS: GLIMEPIRIDE 4 MG TAB PO SCH ×2 (07:58→19:19)
[2018-01-08] MEDS: INSULIN ASPART SUPPLEMENTAL SCALE SQ SCH ×4 (08:00→22:13)
[2018-01-08] MEDS: ACETAMINOPHEN/HYDROcodone 325 MG/5 MG TAB PO PRN (08:20)
[2018-01-08] MEDS: ASPIRIN EC 81 MG TABEC PO SCH (08:21)
[2018-01-08] MEDS: HEPARIN SODIUM - SQ 10,000 UNITS/ML VIAL SQ SCH ×2 (08:21→22:13)
[2018-01-08] MEDS: SPIRONOLACTONE 50 MG TAB PO SCH (08:21)
[2018-01-08] MEDS: POTASSIUM CHLORIDE 10 MEQ CONTROLLED RELEASE TAB PO SCH (08:22)
[2018-01-08] MEDS: METOPROLOL TARTRATE 50 MG TAB PO SCH ×2 (08:22→22:12)
[2018-01-08] MEDS: FUROSEMIDE 40 MG TAB PO SCH (08:22)
[2018-01-08] MEDS ORDERED: ENALAPRIL MALEATE 10 MG TAB PO SCH (09:00)
--- NOTE | 2018-01-08 11:36 | HHI.HP ---
HPI Service [facility] Hospitalists Primary Care Physician Iván Donohue D.O. Admission Diagnosis Left leg cellulitis. Acute on chronic kidney disease. Chief Complaint: LLE pain Travel History International Travel<30 Days: No Contact w/Intl Traveler <30 Da: No Traveled to Known Affected Are: No History of Present Illness Mr. Matthews is a pleasant 52 y/o WM with poorly controlled diabetes, HTN, hx of atrial flutter s/p ablation in 2017, chronic LE edema, hx of diastolic dysfunction, hypothyroidism and morbid obesity. Pt presented to the ED at [facility] on 01/07/18 with complaints of worsening pain, erythema, swelling of the left ankle and subjective fevers/chills x 2-3 days. He states that he has chronic LE edema and takes Lasix 40mg BID and Aldactone chronically. Three days ago he noted increased redness and pain with weight bearing on the left ankle which has worsened over the last 2-3 days. He has been having subjective fevers and chills. He has had increased pain in the left ankle with weight bearing and difficulty with ambulating. He denies any injury to the foot or ankle recently. Pt was given a dose of IV Vancomycin and Zosyn in the ER. He has also been given IVF. Pt had a LE doppler US which was negative for DVT. Pt reports that in December he was treated with Augmentin for 2 weeks for "boils" on his abdomen. Review of Systems Constitutional: COMPLAINS OF: Chills, DENIES: Diaphoretic episodes, Fever Ears, nose, mouth, throat: DENIES: Throat pain, Running Nose Respiratory: DENIES: Cough, Shortness of breath Cardiovascular: COMPLAINS OF: Lower Extremity Edema, DENIES: Chest pain, Palpitations, Dyspnea on Exertion Gastrointestinal: DENIES: Abdominal pain, Constipation, Diarrhea, Nausea, Vomiting Genitourinary: DENIES: Hematuria, Dysuria Musculoskeletal: COMPLAINS OF: Joint pain, Joint Swelling, DENIES: Back pain, Neck pain Integumentary: COMPLAINS OF: Abnormal pigmentation, DENIES: Rash Neurologic: DENIES: Headache Psychiatric: DENIES: Confusion Past Family Social History Past Medical History Atrial flutter/tachycardia Poorly controlled diabetes mellitus HTN Hyperlipidemia Hypothyroidism Tobacco use Morbid obesity Diastolic dysfunction noted on echo in 2014 2D echo (12/15/16) - LV mildly dilated - Estimated EF 30-35% - Images were inadequate for LV motion assessment. Past Surgical History Cardiac cath/EPS/ablation on 12/29/[address] Blackwell Reported Medications -Lasix 40 Mg PO BID -Aldactone 50 Mg PO DAILY -Metoprolol Tartrate 50 Mg PO BID -Glimepiride 4 Mg PO BIDAC -Metformin 500 Mg PO AFTERNOON -Metformin 1,000 Mg PO BIDPC -Humulin R Inj 100 Units SQ TIDAC -Enalapril 20 Mg PO DAILY -Aspir-81 1 Tab PO DAILY -Amlodipine 10 Mg PO DAILY -Levothyroxine 75 Mcg PO DAILY Vitamin D3 (Cholecalciferol) 1,000 Unit Tab 1,000 Units PO DAILY -K-Tab 10 Meq PO DAILY Allergies: Coded Allergies: No Known Allergies (Unverified Allergy, Unknown, 01/07/18) Family History Noncontributory Social History (+)Tobacco use, 3/4ppd x 30+ years Rare alcohol use Occasional marijuana use, 2-3 times per week 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 SKIN: Chronic stasis skin changes in BLE and swelling in the left LE, foot/ankle HEENT: Atraumatic. Normocephalic. No temporal or scalp tenderness. No scleral icterus. Airway patent. NECK: Trachea midline, supple, nontender. CARDIO: Regular. RESP: CTA bilaterally. No wheezes, rales, or rhonchi. ABD: +BS, soft, non-tender, nondistended. EXT: Bilateral LE edema, L>R, pain with palpation of the left ankle NEURO: Awake and alert. Motor and sensory grossly within normal limits. Normal speech. Laboratory Laboratory Tests Test 01/07/18 16:15 01/07/18 20:02 01/08/18 05:10 White Blood Count 12.4 10.9 Red Blood Count 4.08 3.86 Hemoglobin 11.3 11.1 Hematocrit 35.2 33.6 Mean Corpuscular Volume 86.2 87.0 Mean Corpuscular Hemoglobin 27.6 28.7 Mean Corpuscular Hemoglobin Concent 32.0 33.0 Red Cell Distribution Width 14.6 14.9 Platelet Count 246 237 Mean Platelet Volume 8.5 8.5 Neutrophils (%) (Auto) 75.6 73.4 Lymphocytes (%) (Auto) 13.3 14.7 Monocytes (%) (Auto) 9.8 10.0 Eosinophils (%) (Auto) 0.9 1.6 Basophils (%) (Auto) 0.4 0.3 Neutrophils # (Auto) 9.4 8.0 Lymphocytes # (Auto) 1.7 1.6 Monocytes # (Auto) 1.2 1.1 Eosinophils # (Auto) 0.1 0.2 Basophils # (Auto) 0.1 0.0 CBC Comment DIFF FINAL DIFF FINAL Differential Comment Blood Urea Nitrogen 30 32 Creatinine 2.01 1.88 Random Glucose 114 87 Total Protein 7.9 Albumin 3.5 Calcium Level 8.7 8.2 Alkaline Phosphatase 74 Aspartate Amino Transf (AST/SGOT) 13 Alanine Aminotransferase (ALT/SGPT) 29 Total Bilirubin 0.4 Sodium Level 142 142 Potassium Level 3.9 3.7 Chloride Level 108 108 Carbon Dioxide Level 26.1 25.5 Anion Gap 8 9 Estimat Glomerular Filtration Rate 35 38 Lactic Acid Level 2.7 1.7 Date/Time Source Procedure Growth Status 01/07/18 16:20 Blood Peripheral Aerobic Blood Culture Pending Received 01/07/18 16:20 Blood Peripheral Anaerobic Blood Culture Pending Received Result Diagram: 01/08/1810 01/08/18509 Imaging Last Impressions Lower Extremity Ultrasound 01/07/181911 Signed Impressions: Service Date/Time: Sunday, January 07, 2018 20:44 - CONCLUSION: 1. Negative for left lower extremity deep venous thrombosis. MD Yaritza Montelongo VTE Risk Assessment Caprini VTE Risk Assessment: Mod/High Risk (score >= 2) Caprini Risk Assessment Model Point Value = 1 Point Value = 2 Point Value = 3 Point Value = 5 Age 41-60 Minor surgery BMI > 25 kg/m2 Swollen legs Varicose veins or History of unexplained or recurrent spontaneous Oral contraceptives or hormone replacement Sepsis (< 1 month) Serious lung disease, including pneumonia (< 1 month) Abnormal pulmonary function Acute myocardial infarction Congestive heart failure (< 1 month) History of inflammatory bowel disease Medical patient at bed rest Age 61-74 Arthroscopic surgery Major open surgery (> 45 min) Laparoscopic surgery (> 45 min) Malignancy Confined to bed (> 72 hours) Immobilizing plaster cast Central venous access Age >= 75 History of VTE Family history of VTE Factor V Leiden Prothrombin [id number] Lupus anticoagulant Anticardiolipin antibodies Elevated serum homocysteine Heparin-induced thrombocytopenia Other congenital or acquired thrombophilia Stroke (< 1 month) Elective arthroplasty Hip, pelvis, or leg fracture Acute spinal cord injury (< 1 month) Prophylaxis Regimen Total Risk Factor Score Risk Level Prophylaxis Regimen 0-1 Low Early ambulation 2 Moderate Order ONE of the following: *Sequential Compression Device (SCD) *Heparin 5000 units SQ BID 3-4 Higher Order ONE of the following medications: *Heparin 5000 units SQ TID *Enoxaparin/Lovenox 40 mg SQ daily (WT < 150 kg, CrCl > 30 mL/min) *Enoxaparin/Lovenox 30 mg SQ daily (WT < 150 kg, CrCl > 10-29 mL/min) *Enoxaparin/Lovenox 30 mg SQ BID (WT < 150 kg, CrCl > 30 mL/min) AND/OR *Sequential Compression Device (SCD) 5 or more Highest Order ONE of the following medications: *Heparin 5000 units SQ TID (Preferred with Epidurals) *Enoxaparin/Lovenox 40 mg SQ daily (WT < 150 kg, CrCl > 30 mL/min) *Enoxaparin/Lovenox 30 mg SQ daily (WT < 150 kg, CrCl > 10-29 mL/min) *Enoxaparin/Lovenox 30 mg SQ BID (WT < 150 kg, CrCl > 30 mL/min) AND *Sequential Compression Device (SCD) Assessment and Plan Problem List: (1) Cellulitis ICD Codes: L03.90 - Cellulitis, unspecified Status: Acute Plan: - Pt is a 52 y/o WM with poorly controlled diabetes (Hgb A1C 13.8 in 11/2017), HTN, hx of atrial flutter s/p ablation in 2017, chronic LE edema, hx of systolic/diastolic dysfunction, hypothyroidism and morbid obesity. - Pt presented to the ED at [facility] on 01/07/18 with complaints of worsening pain, erythema, swelling of the left ankle and subjective fevers/chills x 2-3 days. He states that he has chronic LE edema and takes Lasix 40mg BID and Aldactone chronically. Three days ago he noted increased pain with weight bearing on the left ankle which has worsened over the last 2-3 days. He denies any injury to the foot or ankle recently. - Pt was given a dose of IV Vancomycin and Zosyn in the ER. He has also been given IVF. - LLE Doppler US which was negative for DVT. - Pt was continued on IV Zosyn for now - Check CT of the LLE as pt reports that he is unable to bear weight on that leg without severe pain. May be related to edema more than an actual cellulitis. - Supportive care - DVT prophylaxis with Heparin (2) Chronic edema ICD Codes: R60.9 - Edema, unspecified Status: Chronic Plan: - Pt is on Lasix and Aldactone as an outpt (3) Diabetes ICD Codes: E11.9 - Type 2 diabetes mellitus without complications Status: Chronic Plan: - Poorly controlled - Hgb A1C 13.8% in 11/2017 - Pt takes at home Metformin 1000mg BID and 500mg at noon, Humulin R 100units TID and Amaryl 4mg BID - NovoLog SSI - Cont. Amaryl - Hold Metformin - Accu checks (4) Hypothyroidism ICD Codes: E03.9 - Hypothyroidism, unspecified Status: Chronic Plan: - Cont. home meds (5) HTN (hypertension) ICD Codes: I10 - Essential (primary) hypertension Status: Chronic Plan: - Pt normally takes Metoprolol 50mg BID, Enalapril 20mg po BID and Norvasc 10mg po daily. - Cont. home BP meds - Monitor BP closely (6) Morbid obesity ICD Codes: E66.01 - Morbid (severe) obesity due to excess calories Status: Acute (7) TRE (obstructive sleep apnea) ICD Codes: G47.33 - Obstructive sleep apnea (adult) (pediatric) Status: Acute Plan: - Pt does not use CPAP at home (8) CKD (chronic kidney disease) stage 3, GFR 30-59 ml/min ICD Codes: N18.3 - Chronic kidney disease, stage 3 (moderate) Status: Chronic Plan: - Labs are around baseline (9) Cardiomyopathy ICD Codes: I42.9 - Cardiomyopathy, unspecified Status: Acute Plan: - Pt with hx of systolic and diastolic dysfunction - Pt appears to be compensated at this time. (10) Hx of atrial flutter ICD Codes: Z86.79 - Personal history of other diseases of the circulatory system Plan: - Pt with hx of A. flutter s/p ablation in 2017 - Pt is NSR Problem Qualifiers (1) Cellulitis: Qualified Codes: L03.116 - Cellulitis of left lower limb (2) Diabetes: Michelle Martinez Jan 08, 2018 11:36
--- NOTE | 2018-01-08 16:38 | RADRPT ---
EXAM DATE/TIME: 01/08/2018 15:45 [facility] COMPARISON: No previous studies available for comparison. INDICATIONS : Left ankle pain, swelling. RADIATION DOSE: 7.29 CTDIvol (mGy) MEDICAL HISTORY : Diabetes mellitus type 2. SURGICAL HISTORY : None. ENCOUNTER: Initial ACUITY: 1 day PAIN SCALE: 5/10 LOCATION: TECHNIQUE: Volumetric scanning of the ankle was performed. Using automated exposure control and adjustment of t he mA and/or kV according to patient size, radiation dose was kept as low as reasonably achievable to obtain optimal diagnostic quality images. DICOM format image data is available electronically for review and comparison. FINDINGS: Prominent diffuse superficial soft tissue edema. Alignment is within normal limits. No evidence of fr acture. No evidence of focal bone erosion. Prominent subchondral lucency and sclerosis of the medial talar dome measuring 2 cm in anterior poste rior dimension and 1.2 cm in medial to lateral dimension. Small plantar and Achilles calcaneal spurs. All of the visualized tendons are intact. Diffuse fatty atrophy of intrinsic foot muscles. CONCLUSION: 1. Prominent osteochondral abnormality/arthritic change of the medial talar dome. 2. Diffuse superficial soft tissue edema. David Garcia MD on January 08, 2018 at 16:34 Board Certified Radiologist. This report was verified electronically.
[2018-01-08] MEDS: FUROSEMIDE 80 MG TAB PO SCH (19:19)
[2018-01-09] VITALS (7 sets, daily range): BP systolic 101–125; BP diastolic 54–70; PULSE 69–91; RESP 18–21; TEMP 97.5–98.7; O2SAT 91–98
--- NOTE | 2018-01-09 00:08 | EKG ---
Date Performed: 01/07/2018 Time Performed: 20:28:06 PTAGE: 52 years EKG: Sinus rhythm MINIMAL ST DEPRESSION BORDERLINE ECG PREVIOUS TRACING : 12/22/2016 06.14 Compared to prior tracing, ST/T wave changes are not as pr ominent DOCTOR: Arnulfo Cobian Interpretating Date/Time 01/09/2018 00:07:37
[2018-01-09] MEDS: PIPERACIL-TAZO 3.375 GM PREMIX 50 ML IV SCH ×2 (04:25→07:50)
[2018-01-09] MEDS: LEVOTHYROXINE SODIUM 75 MCG TAB PO SCH (06:32)
[2018-01-09 07:05] LABS: BICARBONATE 26.7 MEQ/L (21.0-32.0); CALCIUM 8.7 MG/DL (8.5-10.1); CREATININE 2.11 MG/DL (0.60-1.30)
[2018-01-09] MEDS: GLIMEPIRIDE 4 MG TAB PO SCH ×2 (07:34→18:25)
[2018-01-09] MEDS: INSULIN ASPART SUPPLEMENTAL SCALE SQ SCH ×4 (07:37→22:42)
[2018-01-09] MEDS: SPIRONOLACTONE 50 MG TAB PO SCH (07:51)
[2018-01-09] MEDS: ASPIRIN EC 81 MG TABEC PO SCH (07:51)
[2018-01-09] MEDS: METOPROLOL TARTRATE 50 MG TAB PO SCH ×2 (07:51→22:43)
[2018-01-09] MEDS: FUROSEMIDE 80 MG TAB PO SCH ×2 (07:51→18:25)
[2018-01-09] MEDS: POTASSIUM CHLORIDE 10 MEQ CONTROLLED RELEASE TAB PO SCH (07:51)
[2018-01-09] MEDS: HEPARIN SODIUM - SQ 10,000 UNITS/ML VIAL SQ SCH ×2 (07:52→22:43)
[2018-01-09 08:55] LABS: BILIRUBIN, URINE NEG (NEG); BLOOD, URINE NEG (NEG); GLUCOSE,URINE NEG (NEG); HYALINE CAST, URINE 3 /lpf (RARE); KETONE, URINE NEG (NEG); MUCUS URINE FEW /lpf (OCC); NITRITE,URINE NEG (NEG); URIC ACID CRYSTALS, URINE OCC /hpf; URINE COLOR YELLOW (YELLW/STRAW); URINE LEUKOCYTE ESTERASE NEG (NEG)
--- NOTE | 2018-01-09 10:12 | HHI.PR ---
Subjective Remarks Pt reports that he urinated quite a bit last night He is still having pain in the left ankle when he bears weight but he is able to walk on it somewhat better this morning Denies any chest pain, SOB, dizziness or weakness Objective Vitals Vital Signs Date Time Temp Pulse Resp B/P (MAP) Pulse Ox O2 Delivery O2 Flow Rate FiO2 01/09/18 07:58 98.7 76 20 120/70 (87) 95 01/09/18 05:12 97.5 71 18 117/61 (79) 95 01/09/18 01:14 97.8 69 20 116/64 (81) 94 01/08/18 20:23 99.1 90 20 93/50 (64) 93 01/08/18 15:10 98.7 69 20 110/63 (79) 94 01/08/18 11:46 98.1 73 20 109/64 (79) 94 Result Diagram: 01/08/18 0510 01/09/18 0600 Other Results Laboratory Tests Test 01/07/18 16:15 01/07/18 20:02 01/08/18 05:10 01/09/18 06:00 White Blood Count 12.4 TH/MM3 10.9 TH/MM3 Red Blood Count 4.08 MIL/MM3 3.86 MIL/MM3 Hemoglobin 11.3 GM/DL 11.1 GM/DL Hematocrit 35.2 % 33.6 % Mean Corpuscular Volume 86.2 FL 87.0 FL Mean Corpuscular Hemoglobin 27.6 PG 28.7 PG Mean Corpuscular Hemoglobin Concent 32.0 % 33.0 % Red Cell Distribution Width 14.6 % 14.9 % Platelet Count 246 TH/MM3 237 TH/MM3 Mean Platelet Volume 8.5 FL 8.5 FL Neutrophils (%) (Auto) 75.6 % 73.4 % Lymphocytes (%) (Auto) 13.3 % 14.7 % Monocytes (%) (Auto) 9.8 % 10.0 % Eosinophils (%) (Auto) 0.9 % 1.6 % Basophils (%) (Auto) 0.4 % 0.3 % Neutrophils # (Auto) 9.4 TH/MM3 8.0 TH/MM3 Lymphocytes # (Auto) 1.7 TH/MM3 1.6 TH/MM3 Monocytes # (Auto) 1.2 TH/MM3 1.1 TH/MM3 Eosinophils # (Auto) 0.1 TH/MM3 0.2 TH/MM3 Basophils # (Auto) 0.1 TH/MM3 0.0 TH/MM3 CBC Comment DIFF FINAL DIFF FINAL Differential Comment Blood Urea Nitrogen 30 MG/DL 32 MG/DL 32 MG/DL Creatinine 2.01 MG/DL 1.88 MG/DL 2.11 MG/DL Random Glucose 114 MG/DL 87 MG/DL 106 MG/DL Total Protein 7.9 GM/DL Albumin 3.5 GM/DL Calcium Level 8.7 MG/DL 8.2 MG/DL 8.7 MG/DL Alkaline Phosphatase 74 U/L Aspartate Amino Transf (AST/SGOT) 13 U/L Alanine Aminotransferase (ALT/SGPT) 29 U/L Total Bilirubin 0.4 MG/DL Sodium Level 142 MEQ/L 142 MEQ/L 141 MEQ/L Potassium Level 3.9 MEQ/L 3.7 MEQ/L 3.8 MEQ/L Chloride Level 108 MEQ/L 108 MEQ/L 105 MEQ/L Carbon Dioxide Level 26.1 MEQ/L 25.5 MEQ/L 26.7 MEQ/L Anion Gap 8 MEQ/L 9 MEQ/L 9 MEQ/L Estimat Glomerular Filtration Rate 35 ML/MIN 38 ML/MIN 33 ML/MIN Lactic Acid Level 2.7 mmol/L 1.7 mmol/L Test 01/09/18 08:25 Urine Color YELLOW Urine Turbidity CLEAR Urine pH 5.0 Urine Specific [place] 1.013 Urine Protein NEG mg/dL Urine Glucose (UA) NEG mg/dL Urine Ketones NEG mg/dL Urine Occult Blood NEG Urine Nitrite NEG Urine Bilirubin NEG Urine Urobilinogen LESS THAN 2.0 MG/DL Urine Leukocyte Esterase NEG Urine RBC 1 /hpf Urine WBC LESS THAN 1 /hpf Urine Uric Acid Crystals OCC /hpf Urine Hyaline Casts 3 /lpf Urine Mucus FEW /lpf Microscopic Urinalysis Comment CULT NOT INDICATED Imaging Last Impressions Lower Extremity CT 01/08/18 0000 Signed Impressions: Service Date/Time: Monday, January 08, 2018 15:45 - CONCLUSION: 1. Prominent osteochondral abnormality/arthritic change of the medial talar dome. 2. Diffuse superficial soft tissue edema. David Garcia MD Lower Extremity Ultrasound 01/07/18 1912 Signed Impressions: Service Date/Time: Sunday, January 07, 2018 20:44 - CONCLUSION: 1. Negative for left lower extremity deep venous thrombosis. Hollis Deluna MD Objective Remarks General: NAD, AAOx3 Chest: CTA Cardiac: Regular Abd: +BS, soft ND/NT Ext: Bilateral LE edema (L>R), chronic stasis skin changes bilaterally A/P Problem List: (1) Cardiomyopathy ICD Codes: I42.9 - Cardiomyopathy, unspecified Status: Acute Plan: - Pt is a 52 y/o WM with poorly controlled diabetes (Hgb A1C 13.8 in 11/2017), HTN, hx of atrial flutter s/p ablation in 2017, chronic LE edema, hx of systolic/diastolic dysfunction, hypothyroidism and morbid obesity. - Pt presented to the ED at [facility] on 01/07/18 with complaints of worsening pain, swelling of the left ankle and subjective fevers/chills x 2-3 days. He states that he has chronic LE edema and takes Lasix 40mg BID and Aldactone chronically. Three days ago he noted increased pain with weight bearing on the left ankle which had worsened over the last 2-3 days. He denies any injury to the foot or ankle recently. - Pt was given a dose of IV Vancomycin and Zosyn in the ER. He has also been given IVF. - LLE Doppler US which was negative for DVT. - Pt was continued on IV Zosyn - CT of the LLE --> Prominent osteochondral abnormality/arthritic change of the medial talar dome. Diffuse superficial soft tissue edema. - Lasix increased to 80mg po BID - Pt with hx of systolic and diastolic dysfunction, EF 30-35% in 2017 - Today pts tells me that he had a few days where he didn't take his Lasix at home because he couldn't get his prescription refilled and that's when his legs started swelling more - Its felt that his LE pain and swelling is more likely related to his CHF and missing his Lasix doses at home - Lasix was increased to 80mg po BID with good urine output and some symptomatic improvement - Monitor renal function closely - DVT prophylaxis with Heparin - Supportive care (2) Chronic edema ICD Codes: R60.9 - Edema, unspecified Status: Chronic Plan: - Pt is on Lasix and Aldactone as an outpt - See above - Lasix increased to 80mg po BID (3) Diabetes ICD Codes: E11.9 - Type 2 diabetes mellitus without complications Status: Chronic Plan: - Poorly controlled - Hgb A1C 13.8% in 11/2017 - Pt takes at home Metformin 1000mg BID and 500mg at noon, Humulin R 100units TID and Amaryl 4mg BID - NovoLog SSI - Cont. Amaryl - Hold Metformin - Accu checks (4) Hypothyroidism ICD Codes: E03.9 - Hypothyroidism, unspecified Status: Chronic Plan: - Cont. home meds (5) HTN (hypertension) ICD Codes: I10 - Essential (primary) hypertension Status: Chronic Plan: - Pt normally takes Metoprolol 50mg BID, Enalapril 20mg po BID and Norvasc 10mg po daily. - Cont. home BP meds - Monitor BP closely, may need to adjust with increase in Lasix to avoid hypotension (6) Morbid obesity ICD Codes: E66.01 - Morbid (severe) obesity due to excess calories Status: Acute (7) TRE (obstructive sleep apnea) ICD Codes: G47.33 - Obstructive sleep apnea (adult) (pediatric) Status: Acute Plan: - Pt does not use CPAP at home (8) CKD (chronic kidney disease) stage 3, GFR 30-59 ml/min ICD Codes: N18.3 - Chronic kidney disease, stage 3 (moderate) Status: Chronic Plan: - Labs are around baseline (9) Hx of atrial flutter ICD Codes: Z86.79 - Personal history of other diseases of the circulatory system Plan: - Pt with hx of A. flutter s/p ablation in 2017 - Pt is NSR Assessment and Plan Assessment and Plan Patient examined. Assessment and plan formulated with Michelle Martinez PA-C. I agree with the above. not convinced the pt has cellulitis. seems that the pain and swelling are more related to fluid buildup/edema from his chf. so systolic chf exacerbation. pt admits to not taking his lasix prior to onset of his sx.s cont double dose lasix and monitor scd/hose. bmp in AM. Problem Qualifiers (1) Diabetes: Michelle Martinez Jan 09, 2018 10:12 Ranjan Lozano MD Jan 09, 2018 14:50
--- NOTE | 2018-01-09 14:49 | HHI.PR ---
Subjective Remarks slight improvement in swelling and pain in left lower leg/foot Objective Vitals heart reg lung cta abd s/nt ext lower ext edema/left worse than right Vital Signs Date Time Temp Pulse Resp B/P (MAP) Pulse Ox O2 Delivery O2 Flow Rate FiO2 01/09/18 11:33 72 21 101/59 (73) 98 01/09/18 07:58 98.7 76 20 120/70 (87) 95 01/09/18 05:12 97.5 71 18 117/61 (79) 95 01/09/18 01:14 97.8 69 20 116/64 (81) 94 01/08/18 20:23 99.1 90 20 93/50 (64) 93 01/08/18 15:10 98.7 69 20 110/63 (79) 94 01/09/18 01/09/18 01/10/18 15:00 23:00 07:00 # Voids 3 Result Diagram: 01/08/18 0510 01/09/18 0600 Imaging Last Impressions Lower Extremity CT 01/08/18 0000 Signed Impressions: Service Date/Time: Monday, January 08, 2018 15:45 - CONCLUSION: 1. Prominent osteochondral abnormality/arthritic change of the medial talar dome. 2. Diffuse superficial soft tissue edema. David Garcia MD Lower Extremity Ultrasound 01/07/181911 Signed Impressions: Service Date/Time: Sunday, January 07, 2018 20:44 - CONCLUSION: 1. Negative for left lower extremity deep venous thrombosis. Hollis Deluna MD A/P Problem List: (1) Cardiomyopathy ICD Codes: I42.9 - Cardiomyopathy, unspecified Status: Acute Plan: - Pt is a 52 y/o WM with poorly controlled diabetes (Hgb A1C 13.8 in 11/2017), HTN, hx of atrial flutter s/p ablation in 2017, chronic LE edema, hx of systolic/diastolic dysfunction, hypothyroidism and morbid obesity. - Pt presented to the ED at [facility] on 01/07/18 with complaints of worsening pain, swelling of the left ankle and subjective fevers/chills x 2-3 days. He states that he has chronic LE edema and takes Lasix 40mg BID and Aldactone chronically. Three days ago he noted increased pain with weight bearing on the left ankle which had worsened over the last 2-3 days. He denies any injury to the foot or ankle recently. - Pt was given a dose of IV Vancomycin and Zosyn in the ER. He has also been given IVF. - LLE Doppler US which was negative for DVT. - Pt was continued on IV Zosyn - CT of the LLE --> Prominent osteochondral abnormality/arthritic change of the medial talar dome. Diffuse superficial soft tissue edema. - Lasix increased to 80mg po BID - Pt with hx of systolic and diastolic dysfunction, EF 30-35% in 2017 - Today pts tells me that he had a few days where he didn't take his Lasix at home because he couldn't get his prescription refilled and that's when his legs started swelling more - Its felt that his LE pain and swelling is more likely related to his CHF and missing his Lasix doses at home - Lasix was increased to 80mg po BID with good urine output and some symptomatic improvement - Monitor renal function closely - DVT prophylaxis with Heparin - Supportive care (2) Chronic edema ICD Codes: R60.9 - Edema, unspecified Status: Chronic Plan: - Pt is on Lasix and Aldactone as an outpt - See above - Lasix increased to 80mg po BID (3) Diabetes ICD Codes: E11.9 - Type 2 diabetes mellitus without complications Status: Chronic Plan: - Poorly controlled - Hgb A1C 13.8% in 11/2017 - Pt takes at home Metformin 1000mg BID and 500mg at noon, Humulin R 100units TID and Amaryl 4mg BID - NovoLog SSI - Cont. Amaryl - Hold Metformin - Accu checks (4) Hypothyroidism ICD Codes: E03.9 - Hypothyroidism, unspecified Status: Chronic Plan: - Cont. home meds (5) HTN (hypertension) ICD Codes: I10 - Essential (primary) hypertension Status: Chronic Plan: - Pt normally takes Metoprolol 50mg BID, Enalapril 20mg po BID and Norvasc 10mg po daily. - Cont. home BP meds - Monitor BP closely, may need to adjust with increase in Lasix to avoid hypotension (6) Morbid obesity ICD Codes: E66.01 - Morbid (severe) obesity due to excess calories Status: Acute (7) TRE (obstructive sleep apnea) ICD Codes: G47.33 - Obstructive sleep apnea (adult) (pediatric) Status: Acute Plan: - Pt does not use CPAP at home (8) CKD (chronic kidney disease) stage 3, GFR 30-59 ml/min ICD Codes: N18.3 - Chronic kidney disease, stage 3 (moderate) Status: Chronic Plan: - Labs are around baseline (9) Hx of atrial flutter ICD Codes: Z86.79 - Personal history of other diseases of the circulatory system Plan: - Pt with hx of A. flutter s/p ablation in 2017 - Pt is NSR Assessment and Plan Patient examined. Assessment and plan formulated with Michelle Martinez PA-C. I agree with the above. not convinced the pt has cellulitis. seems that the pain and swelling are more related to fluid buildup/edema from his chf. so systolic chf exacerbation. pt admits to not taking his lasix prior to onset of his sx.s cont double dose lasix and monitor scd/hose. bmp in AM. Problem Qualifiers (1) Diabetes: aRnjan Lozano MD Jan 09, 2018 14:49
[2018-01-09] MEDS: ACETAMINOPHEN/HYDROcodone 325 MG/5 MG TAB PO PRN (22:42)
[2018-01-10 00:14] VITALS: BP 116/57; PULSE 72; RESP 18; TEMP 98.5; O2SAT 95
[2018-01-10 03:23] VITALS: BP 124/66; PULSE 71; RESP 18; TEMP 97.7; O2SAT 94
[2018-01-10] MEDS: LEVOTHYROXINE SODIUM 75 MCG TAB PO SCH (06:25)
[2018-01-10 07:16] LABS: BICARBONATE 28.5 MEQ/L (21.0-32.0)
[2018-01-10 08:04] VITALS: BP 124/86; PULSE 78; RESP 20; TEMP 97.7; O2SAT 95
--- NOTE | 2018-01-10 08:43 | HHI.PR ---
Subjective Remarks Pt feeling well today. He has less pain and swelling in the LE with the YASMIN hose and SCDs and his weight has decreased down to 387lbs today from 411lbs at admission. He has had good urine output He has been ambulating with a walker with much less pain in the left ankle Objective Vitals Vital Signs Date Time Temp Pulse Resp B/P (MAP) Pulse Ox O2 Delivery O2 Flow Rate FiO2 01/10/18 08:04 97.7 78 20 124/86 (99) 95 01/10/18 03:23 97.7 71 18 124/66 (85) 94 01/10/18 00:14 98.5 72 18 116/57 (76) 95 01/09/18 20:56 98.0 91 18 115/54 (74) 91 01/09/18 20:00 98 01/09/18 15:02 76 21 125/59 (81) 94 01/09/18 11:33 72 21 101/59 (73) 98 Result Diagram: 01/08/18 0510 01/10/18 0611 Other Results Laboratory Tests Test 01/09/18 06:00 01/09/18 08:25 01/10/18 06:11 Blood Urea Nitrogen 32 MG/DL 36 MG/DL Creatinine 2.11 MG/DL 2.00 MG/DL Random Glucose 106 MG/DL 117 MG/DL Calcium Level 8.7 MG/DL 9.0 MG/DL Sodium Level 141 MEQ/L 138 MEQ/L Potassium Level 3.8 MEQ/L 3.8 MEQ/L Chloride Level 105 MEQ/L 103 MEQ/L Carbon Dioxide Level 26.7 MEQ/L 28.5 MEQ/L Anion Gap 9 MEQ/L 7 MEQ/L Estimat Glomerular Filtration Rate 33 ML/MIN 35 ML/MIN Urine Color YELLOW Urine Turbidity CLEAR Urine pH 5.0 Urine Specific [place] 1.013 Urine Protein NEG mg/dL Urine Glucose (UA) NEG mg/dL Urine Ketones NEG mg/dL Urine Occult Blood NEG Urine Nitrite NEG Urine Bilirubin NEG Urine Urobilinogen LESS THAN 2.0 MG/DL Urine Leukocyte Esterase NEG Urine RBC 1 /hpf Urine WBC LESS THAN 1 /hpf Urine Uric Acid Crystals OCC /hpf Urine Hyaline Casts 3 /lpf Urine Mucus FEW /lpf Microscopic Urinalysis Comment CULT NOT INDICATED Imaging Last Impressions Lower Extremity CT 01/08/18 0000 Signed Impressions: Service Date/Time: Monday, January 08, 2018 15:45 - CONCLUSION: 1. Prominent osteochondral abnormality/arthritic change of the medial talar dome. 2. Diffuse superficial soft tissue edema. David Garcia MD Lower Extremity Ultrasound 01/07/181911 Signed Impressions: Service Date/Time: Sunday, January 07, 2018 20:44 - CONCLUSION: 1. Negative for left lower extremity deep venous thrombosis. Hollis Deluna MD Objective Remarks General: NAD, AAOx3 Chest: CTA Cardiac: Regular Abd: +BS, soft obese, nontender Ext: YASMIN hose in place, less edema to bilateral LE A/P Problem List: (1) Cardiomyopathy ICD Codes: I42.9 - Cardiomyopathy, unspecified Status: Acute Plan: - Pt is a 52 y/o WM with poorly controlled diabetes (Hgb A1C 13.8 in 11/2017), HTN, hx of atrial flutter s/p ablation in 2016, chronic LE edema, hx of systolic/diastolic dysfunction, hypothyroidism and morbid obesity. - Pt presented to the ED at [facility] on 01/07/18 with complaints of worsening pain, swelling of the left ankle and subjective fevers/chills x 2-3 days. He states that he has chronic LE edema and takes Lasix 40mg BID and Aldactone chronically. Three days ago he noted increased pain with weight bearing on the left ankle which had worsened over the last 2-3 days. He denies any injury to the foot or ankle recently. - Pt was given a dose of IV Vancomycin and Zosyn in the ER. He has also been given IVF. - LLE Doppler US which was negative for DVT. - Pt was continued on IV Zosyn - CT of the LLE --> Prominent osteochondral abnormality/arthritic change of the medial talar dome. Diffuse superficial soft tissue edema. - It was felt that the pts LLE pain was likely due to increased edema as opposed to cellulitis which he was diagnosed with from the ED. - Pt with hx of systolic and diastolic dysfunction, EF 30-35% in 2017 - Pts reported that he had a few days where he didn't take his Lasix at home because he couldn't get his prescription refilled and that's when his legs started swelling more - Its felt that his LE pain and swelling is more likely related to his CHF and missing his Lasix doses at home - Lasix was increased to 80mg po BID with good urine output and symptomatic improvement - Pts weight has decreased from 411lbs to 387lbs today - Monitor renal function closely - Pt stable for discharge today with improved mobility and pain with diuresis. - Pt is to be discharged back on his home regimen 40mg po BID. - He will need repeat labs on 01/12/[address] Donohue - Pt will followup with Dr. oDnohue in 1 week (2) Chronic edema ICD Codes: R60.9 - Edema, unspecified Status: Chronic Plan: - Pt is on Lasix and Aldactone as an outpt - See above - Lasix increased to 80mg po BID (3) Diabetes ICD Codes: E11.9 - Type 2 diabetes mellitus without complications Status: Chronic Plan: - Poorly controlled - Hgb A1C 13.8% in 11/2017 - Pt takes at home Metformin 1000mg BID and 500mg at noon, Humulin R 100units TID and Amaryl 4mg BID - NovoLog SSI - Cont. Amaryl - Hold Metformin - Accu checks (4) Hypothyroidism ICD Codes: E03.9 - Hypothyroidism, unspecified Status: Chronic Plan: - Cont. home meds (5) HTN (hypertension) ICD Codes: I10 - Essential (primary) hypertension Status: Chronic Plan: - Pt normally takes Metoprolol 50mg BID, Enalapril 20mg po BID and Norvasc 10mg po daily. - Pts Enalapril and Norvasc were held due to increase in Lasix and BP has been low/normal - Cont. to hold at discharge and have [facility] monitor BP at home, these may need to be resumed - Pt to provide PCP with home BP readings to help determine when/if to resume these (6) Morbid obesity ICD Codes: E66.01 - Morbid (severe) obesity due to excess calories Status: Acute (7) TRE (obstructive sleep apnea) ICD Codes: G47.33 - Obstructive sleep apnea (adult) (pediatric) Status: Acute Plan: - Pt does not use CPAP at home (8) CKD (chronic kidney disease) stage 3, GFR 30-59 ml/min ICD Codes: N18.3 - Chronic kidney disease, stage 3 (moderate) Status: Chronic Plan: - Labs are around baseline (9) Hx of atrial flutter ICD Codes: Z86.79 - Personal history of other diseases of the circulatory system Plan: - Pt with hx of A. flutter s/p ablation in 2017 - Pt is NSR Assessment and Plan Patient examined. Assessment and plan formulated with Michelle Martinez PA-C. I agree with the above. Pt missed 4 days of his PO lasix prior to admission. Pt greatly improved with IV diuresis during this admission. Decreased LE edema. Decreased LE pain with diuresis. Pt will resume lasix 40mg BID upon discharge. Pt will f/u with PCP, Dr. Iván Donohue in one week. D/C to home with [facility]. See discharge orders. Problem Qualifiers (1) Cardiomyopathy: Qualified Codes: I42.9 - Cardiomyopathy, unspecified (2) Diabetes: Michelle Martinez Jan 10, 2018 08:42 Juan Davidson DO Jan 10, 2018 10:50
[2018-01-10] MEDS: ASPIRIN EC 81 MG TABEC PO SCH (09:04)
[2018-01-10] MEDS: SPIRONOLACTONE 50 MG TAB PO SCH (09:04)
[2018-01-10] MEDS: METOPROLOL TARTRATE 50 MG TAB PO SCH (09:04)
[2018-01-10] MEDS: POTASSIUM CHLORIDE 10 MEQ CONTROLLED RELEASE TAB PO SCH (09:04)
[2018-01-10] MEDS: GLIMEPIRIDE 4 MG TAB PO SCH (09:04)
[2018-01-10] MEDS: FUROSEMIDE 80 MG TAB PO SCH (09:05)
[2018-01-10] MEDS: HEPARIN SODIUM - SQ 10,000 UNITS/ML VIAL SQ SCH (09:05)
--- NOTE | 2018-01-10 09:39 | HHI.DCPOC ---
Discharge Care Plan Diagnosis: (1) Chronic edema (2) Congestive heart failure (3) Cardiomyopathy (4) CKD (chronic kidney disease) stage 3, GFR 30-59 ml/min (5) TRE (obstructive sleep apnea) (6) HTN (hypertension) (7) Hypothyroidism (8) Diabetes Goals to Promote Your Health - Patient is to continue on Lasix 40mg twice daily - He is to get repeat blood work to be done this week prior to visit with Dr. Donohue - Patient is to hold off on resuming his Enalapril and Amlodipine at discharge as his blood pressure has been running low/normal. He is to check his BP at home and record the readings to provide to his PCP to see if/when those blood pressure medications can be resumed. - We will arrange for [facility] to come out to monitor the pts BP reading and provide these to the pts PCP. Directions to Meet Your Goals Take your medications as prescribed Follow your dietary instruction Follow activity as directed Keep your appointments as scheduled Take your immunizations and boosters as scheduled If your symptoms worsen call your PCP, if no PCP go to Urgent Care Center or Emergency Room Smoking is Dangerous to Your Health. Avoid second hand smoke Call the 24-hour hour crisis hotline for domestic abuse at Michelle Martinez Jan 10, 2018 09:39 Juan Davidson DO Jan 10, 2018 10:51
[2018-01-10] MEDS: INSULIN ASPART SUPPLEMENTAL SCALE SQ SCH ×2 (10:05→13:38)
--- NOTE | 2018-01-10 10:07 | HHI.FF ---
Face to Face Verification Diagnosis: (1) Cardiomyopathy (2) Congestive heart failure (3) Chronic edema (4) CKD (chronic kidney disease) stage 3, GFR 30-59 ml/min (5) TRE (obstructive sleep apnea) (6) HTN (hypertension) (7) Hypothyroidism (8) Diabetes Home Health Nursing Order: Medical education Signs/symptoms of disease process CHF education Nursing assessment with vital signs Instructions: Please check CBC, BMP, and Mg+ on 01/12/18, and send results to Dr. Iván Donohue Please monitor pts BP and record for the pt to provide to his PCP, as we have temporarily held his Enalapril and Norvasc which may need to be resumed I have seen patient Rory Matthews on 01/10/18. My clinical findings support the need for the requested home health care services because: Med compliance is questionable I certify that my clinical findings support that this patient is homebound because: Poor cardiac reserve Michelle Martinez Jan 10, 2018 10:07 Juan Davidson DO Jan 10, 2018 12:30
--- NOTE | 2018-01-10 10:21 | HHI.DS ---
Discharge Summary Admission Date Jan 07, 2018 at 20:10 Discharge Date: Jan 10, 2018 Admitting Diagnosis CHF exacerbation. Acute on chronic kidney disease. (1) Cardiomyopathy Diagnosis: Principal ICD Codes: I42.9 - Cardiomyopathy, unspecified Status: Acute (2) Chronic edema Diagnosis: Secondary ICD Codes: R60.9 - Edema, unspecified Status: Chronic (3) Diabetes Diagnosis: Secondary ICD Codes: E11.9 - Type 2 diabetes mellitus without complications Status: Chronic (4) Hypothyroidism Diagnosis: Secondary ICD Codes: E03.9 - Hypothyroidism, unspecified Status: Chronic (5) HTN (hypertension) Diagnosis: Secondary ICD Codes: I10 - Essential (primary) hypertension Status: Chronic (6) Morbid obesity Diagnosis: Secondary ICD Codes: E66.01 - Morbid (severe) obesity due to excess calories Status: Acute (7) TRE (obstructive sleep apnea) Diagnosis: Secondary ICD Codes: G47.33 - Obstructive sleep apnea (adult) (pediatric) Status: Acute (8) CKD (chronic kidney disease) stage 3, GFR 30-59 ml/min Diagnosis: Secondary ICD Codes: N18.3 - Chronic kidney disease, stage 3 (moderate) Status: Chronic (9) Hx of atrial flutter ICD Codes: Z86.79 - Personal history of other diseases of the circulatory system Brief History Mr. Matthews is a pleasant 52 y/o WM with poorly controlled diabetes, HTN, hx of atrial flutter s/p ablation in 2016, chronic LE edema, hx of diastolic dysfunction, hypothyroidism and morbid obesity. Pt presented to the ED at [facility] on 01/07/18 with complaints of worsening pain, erythema, swelling of the left ankle and subjective fevers/chills x 2-3 days. He states that he has chronic LE edema and takes Lasix 40mg BID and Aldactone chronically. Three days ago he noted increased redness and pain with weight bearing on the left ankle which has worsened over the last 2-3 days. He has been having subjective fevers and chills. He has had increased pain in the left ankle with weight bearing and difficulty with ambulating. He denies any injury to the foot or ankle recently. Pt was given a dose of IV Vancomycin and Zosyn in the ER. He has also been given IVF. Pt had a LE doppler US which was negative for DVT. Pt reports that in December he was treated with Augmentin for 2 weeks for "boils" on his abdomen. CBC/BMP: 01/08/18 0510 01/10/18 0611 Significant Findings Laboratory Tests Test 01/07/18 16:15 01/07/18 20:02 01/08/18 05:10 01/09/18 06:00 White Blood Count 12.4 TH/MM3 (4.0-11.0) Red Blood Count 4.08 MIL/MM3 (4.50-5.90) 3.86 MIL/MM3 (4.50-5.90) Hemoglobin 11.3 GM/DL (13.0-17.0) 11.1 GM/DL (13.0-17.0) Hematocrit 35.2 % (39.0-51.0) 33.6 % (39.0-51.0) Neutrophils (%) (Auto) 75.6 % (16.0-70.0) 73.4 % (16.0-70.0) Monocytes (%) (Auto) 9.8 % (0.0-8.0) 10.0 % (0.0-8.0) Neutrophils # (Auto) 9.4 TH/MM3 (1.8-7.7) 8.0 TH/MM3 (1.8-7.7) Monocytes # (Auto) 1.2 TH/MM3 (0-0.9) 1.1 TH/MM3 (0-0.9) Blood Urea Nitrogen 30 MG/DL (7-18) 32 MG/DL (7-18) 32 MG/DL (7-18) Creatinine 2.01 MG/DL (0.60-1.30) 1.88 MG/DL (0.60-1.30) 2.11 MG/DL (0.60-1.30) Random Glucose 114 MG/DL (74-106) Aspartate Amino Transf (AST/SGOT) 13 U/L (15-37) Chloride Level 108 MEQ/L (98-107) 108 MEQ/L (98-107) Estimat Glomerular Filtration Rate 35 ML/MIN (>89) 38 ML/MIN (>89) 33 ML/MIN (>89) Lactic Acid Level 2.7 mmol/L (0.4-2.0) Calcium Level 8.2 MG/DL (8.5-10.1) Test 3/11/18 08:25 01/10/18 06:11 Urine Uric Acid Crystals OCC /hpf (NONE) Urine Mucus FEW /lpf (OCC) Blood Urea Nitrogen 36 MG/DL (7-18) Creatinine 2.00 MG/DL (0.60-1.30) Random Glucose 117 MG/DL (74-106) Estimat Glomerular Filtration Rate 35 ML/MIN (>89) Imaging Last Impressions Lower Extremity CT 01/08/18 0000 Signed Impressions: Service Date/Time: Monday, January 08, 2018 15:45 - CONCLUSION: 1. Prominent osteochondral abnormality/arthritic change of the medial talar dome. 2. Diffuse superficial soft tissue edema. David Garcia MD Lower Extremity Ultrasound 01/07/18 1912 Signed Impressions: Service Date/Time: Sunday, January 07, 2018 20:44 - CONCLUSION: 1. Negative for left lower extremity deep venous thrombosis. Hollis Deluna MD PE at Discharge General: NAD, AAOx3 Chest: CTA Cardiac: Regular Abd: +BS, soft obese, nontender Ext: YASMIN hose in place, less edema to bilateral LE Hospital Course Cardiomyopathy Systolic and diastolic CHF LE edema Pt is a 52 y/o WM with poorly controlled diabetes (Hgb A1C 13.8 in 11/2017), HTN , hx of atrial flutter s/p ablation in 2017, chronic LE edema, hx of systolic/ diastolic dysfunction, hypothyroidism and morbid obesity. Pt presented to the ED at [facility] on 01/07/18 with complaints of worsening pain, swelling of the left ankle and subjective fevers/chills x 2-3 days. He states that he has chronic LE edema and takes Lasix 40mg BID and Aldactone chronically. Three days ago he noted increased pain with weight bearing on the left ankle which had worsened over the last 2-3 days. He denies any injury to the foot or ankle recently. Pt was given a dose of IV Vancomycin and Zosyn in the ER. He has also been given IVF. LLE Doppler US which was negative for DVT. Pt was continued on IV Zosyn following admission. CT of the LLE --> Prominent osteochondral abnormality/ arthritic change of the medial talar dome. Diffuse superficial soft tissue edema. It was felt that the pts LLE pain was likely due to increased edema as opposed to cellulitis which he was diagnosed with from the ED. Pt with hx of systolic and diastolic dysfunction, EF 30-35% in 2017. Pts reported that he had a few days where he didn't take his Lasix at home because he couldn't get his prescription refilled and that's when his legs started swelling more. Its felt that his LE pain and swelling is more likely related to his CHF and missing his Lasix doses at home. Lasix was increased to 80mg po BID with good urine output and symptomatic improvement. Pts weight has decreased from 411lbs to 387lbs on the day of discharge. Pt stable for discharge today with improved mobility and pain with diuresis. Pt is to be discharged back on his home regimen 40mg po BID. He is to weigh himself daily and record his weight. He will need repeat labs on 01/12/[address] Donohue. Pt will followup with Dr. Donohue in 1 week Diabetes Poorly controlled. Pts Hgb A1C 13.8% in 11/2017. Pt takes at home Metformin 1000mg BID and 500mg at noon, Humulin R 100units TID and Amaryl 4mg BID. He was placed on NovoLog SSI and his home dose of Amaryl during admission. He will resume his home regimen at discharge. Hypothyroidism He will cont. home meds HTN (hypertension) Pt normally takes Metoprolol 50mg BID, Enalapril 20mg po BID and Norvasc 10mg po daily. Pts Enalapril and Norvasc were held due to increase in Lasix and BP has been low/normal. Cont. to hold at discharge and have [facility] monitor BP at home , these may need to be resumed. Pt to provide PCP with home BP readings to help determine when/if to resume these CKD (chronic kidney disease) stage 3, GFR 30-59 ml/min Labs are slightly higher than baseline with increased dose of Lasix. He will be resumed on his previous home dose and repeat labs in 2 days with results to his PCP. Hx of atrial flutter Pt with hx of A. flutter s/p ablation in 2017. Pt is NSR Pt Condition on Discharge: Stable Discharge Disposition: Disch w/ Home Health Serv Discharge Instructions DIET: Follow Instructions for: Heart Healthy Diet, Diabetic Diet Activities you can perform: Regular-No Restrictions Follow up Referrals: PCP Follow-up - [address] Iván Donohue Continued Medications: Aspirin (Aspir-81) 81 Mg Tabdr 1 TAB PO DAILY Cholecalciferol (Vitamin D3) 1,000 Unit Tab 1000 UNITS PO DAILY for Nutritional Supplement, #1 BOTTLE 0 Refills Furosemide (Lasix) 40 Mg Tab 40 MG PO BID, #60 TAB 0 Refills Glimepiride (Glimepiride) 4 Mg Tab 4 MG PO BIDAC for Blood Sugar Management, #60 TAB 0 Refills Insulin Human Regular Inj (Humulin R Inj) 1,000 Unit/10 Ml Vial 100 UNITS SQ TIDAC for Blood Sugar Management, #10 ML 0 Refills Levothyroxine (Levothyroxine) 75 Mcg Tab 75 MCG PO DAILY for Thyroid, #30 TAB 0 Refills Metformin (Metformin) 1,000 Mg Tab 1000 MG PO BIDPC for Blood Sugar Management, #60 TAB 0 Refills Metformin (Metformin) 500 Mg Tab 500 MG PO afternoon for Blood Sugar Management, #30 TAB 0 Refills With a meal Metoprolol Tartrate (Metoprolol Tartrate) 50 Mg Tab 50 MG PO BID, #60 TAB 0 Refills Potassium Chloride ER (K-Tab) 10 Meq Tab 10 MEQ PO DAILY for Electrolyte Replacement, #30 TAB 0 Refills Spironolactone (Aldactone) 50 Mg Tab 50 MG PO DAILY for swelling, #0 TAB 0 Refills resume in 3 days Discontinued Medications: Amlodipine (Amlodipine) 10 Mg Tab 10 MG PO DAILY for Blood Pressure Management, #30 TAB 0 Refills Enalapril (Enalapril) 20 Mg Tab 20 MG PO DAILY, #30 TAB 0 Refills Additional Information Patient examined. Assessment and plan formulated with Michelle Martinez PA-C. I agree with the above. Pt missed 4 days of his PO lasix prior to admission. Pt greatly improved with IV diuresis during this admission. Decreased LE edema. Decreased LE pain with diuresis. Pt will resume lasix 40mg BID upon discharge. Pt will f/u with PCP, Dr. Iván Donohue in one week. D/C to home with [facility]. See discharge orders. Michelle Martinez Jan 10, 2018 10:21 Juan Davidson DO Jan 10, 2018 10:50
== END 2018-01-10 14:26 | disposition home or self-care (01) ==
LOC: NEPD 15:19 → NEDA 20:10 → INTOOBSV 20:10 → NEPFCDU 21:10
PROVIDERS: ADMIT Hospitalist; ATTEND Hospitalist
DX: L03.116 Cellulitis of left lower limb (principal); I13.0 Hypertensive heart and chronic kidney disease with heart failure and stage 1 through stage 4 chronic kidney disease, or unspecified chronic kidney disease; I50.43 Acute on chronic combined systolic (congestive) and diastolic (congestive) heart failure; E11.22 Type 2 diabetes mellitus with diabetic chronic kidney disease; N18.3 Chronic kidney disease, stage 3 (moderate); E03.9 Hypothyroidism, unspecified; G47.33 Obstructive sleep apnea (adult) (pediatric); I42.9 Cardiomyopathy, unspecified; E11.65 Type 2 diabetes mellitus with hyperglycemia; E78.5 Hyperlipidemia, unspecified; F12.90 Cannabis use, unspecified, uncomplicated; F17.200 Nicotine dependence, unspecified, uncomplicated; E66.01 Morbid (severe) obesity due to excess calories; Z79.899 Other long term (current) drug therapy; Z79.84 Long term (current) use of oral hypoglycemic drugs; Z79.82 Long term (current) use of aspirin
CPT/HCPCS: 73700; 80048; 80053; 81001; 82948; 83605; 85025; 87040; 93005; 93971; 96361; 96365; 96366; 96372; 99285; G0378; J1644; J1815; J2543; J3370; J7030; J7050